=== PATIENT | female | born 1940 | race Caucasian/White ===

== ENCOUNTER 2024-12-25 15:45 | Inpatient (IN) | payer MEDICARE, OTHER, SELFPAY ==
[2024-12-25] VITALS (10 sets, daily range): BP systolic 114–164; BP diastolic 70–97; PULSE 80–108; RESP 15–28; TEMP 36.2–36.4; O2SAT 88–98; BMI 36.1
--- NOTE | ~2024-12-25 | XR_ITS ---
EXAMINATION: Pre-MRI screening CLINICAL INDICATION: Rule out metallic foreign body in abdomen. TECHNIQUE: One view chest, abdomen and pelvis. FINDINGS: Chest: The lungs are hyperexpanded and clear acute process. Heart size enlarged. Pulmonary vascularity is normal. No gross bony abnormality seen. No radiopaque metallic foreign body seen Abdomen 1 view reveal scattered stool and gas in the colon without distention. Mild prominence of small bowel loops in midabdomen There is no organomegaly. No radiopaque renal calculi seen. There is mild spondylosis seen in lumbar spine. No aggressive lytic or sclerotic process seen. XR/XR pre mri screening IMPRESSION: Hypoexpanded lungs without acute process Scattered stool colon and mild prominence small bowel loops midabdomen. No radiopaque metallic foreign body a prosthesis seen in the chest, abdomen or pelvis. Electronically signed by: Ankit Lopez MD 12/26/2024 02:43 PM EDT
--- NOTE | ~2024-12-25 | CT_ITS ---
EXAMINATION: CT HEAD WITHOUT CONTRAST (STROKE PROTOCOL) CLINICAL INFORMATION: Stroke protocol. COMPARISON: None available. TECHNIQUE: Contiguous axial imaging was performed from the skull base to vertex without intravenous administration of contrast. This CT examination was performed using dose optimization techniques as appropriate, variously including the following: *Automated exposure control *Adjustment of mA and/or kV according to patient size (this includes techniques or standardized protocols for targeted exams where dose is matched to indication/reason for exam; i.e. extremities or head) *Use of iterative reconstruction technique DLP: 624 mGy centimeter. FINDINGS: No acute intracranial hemorrhage, mass effect, midline shift, hydrocephalus or herniation. Kapadia-white matter differentiation is normal. There is a left temporoparietal occipital encephalomalacia and a right frontal encephalomalacia. Posterior cranial fossa contents demonstrated no acute intracranial hemorrhage or mass effect or midline shift. Calcified plaques in the cavernous supracavernous segments both ICA. Tympanic cavities and mastoid cells are aerated. Edentulous, maxilla. CT/CT head for STROKE IMPRESSION: No acute intracranial hemorrhage. Prior vascular insults left MCA and right MCA territory. Findings communicated to the emergency physician Dr. Mariposa Maier on December 25, 2024 at 4:00 PM This critical result was discussed with at hours on . It was ascertained that the content and urgency of the report was understood at the time of direct communication. Electronically signed by: Adam Tracy MD 12/25/2024 04:01 PM EDT
--- NOTE | ~2024-12-25 | CT_ITS ---
EXAMINATION: CT ANGIOGRAM HEAD AND NECK CLINICAL INFORMATION: Right-sided weakness, dysarthria. Right arm paralysis. COMPARISON: Noncontrast head CT performed earlier same day. TECHNIQUE: CTA Head and Neck performed via test bolus sequences and head and neck intravenous bolus administration 70 mL of Omnipaque 350. Helical imaging was performed in the axial plane from the aortic arch to the skull vertex. A [address] head was also obtained. The data was processed at the medical imaging technologist's workstation for generation of MIP sequences. Angled MIPs and volume rendered reformatted images were also generated at an offline 3D workstation. Stenoses are assessed in accordance with NASCET criteria unless otherwise indicated. This CT examination was performed using dose optimization techniques as appropriate, variously including the following: *Automated exposure control *Adjustment of mA and/or kV according to patient size (this includes techniques or standardized protocols for targeted exams where dose is matched to indication/reason for exam; i.e. extremities or head) *Use of iterative reconstruction technique FINDINGS: NECK CTA: -AORTIC ARCH: Normal in caliber. Mild to moderate atheromatous calcification. Three-vessel branching pattern. -GREAT VESSEL ORIGINS: Widely patent. No stenosis. -RIGHT COMMON CAROTID ARTERY: Normal in course and caliber to the level of the bifurcation. -CERVICAL RIGHT INTERNAL CAROTID ARTERY: Mild calcific atherosclerotic disease of the carotid bulb and proximal internal carotid artery without flow-limiting stenosis. -LEFT COMMON CAROTID ARTERY: Normal in course and caliber to the level of the bifurcation. -CERVICAL LEFT INTERNAL CAROTID ARTERY: Mild calcific atherosclerotic disease of the carotid bulb and proximal internal carotid artery without flow-limiting stenosis. -CERVICAL RIGHT VERTEBRAL ARTERY: Mildly dominant. Normal in course and caliber into the skull base. -CERVICAL LEFT VERTEBRAL ARTERY: Mild stenosis at the origin secondary to mixed plaque. Normal in course and caliber into the skull base. OTHER, SOFT TISSUES: -No lymphadenopathy or mass. No abnormal fluid collection or soft tissue swelling. -Mild global thyroid enlargement without discrete nodules seen. -Imaged superior mediastinal structures normal. -Imaged lung apices demonstrate mild mosaic attenuation, and mild thickening of the small airways diffusely. CTA OF THE BRAIN: -INTRACRANIAL INTERNAL CAROTID ARTERIES: Calcific atherosclerotic disease of the intracranial internal carotid arteries without occlusion or flow-limiting stenosis. -RIGHT ANTERIOR CEREBRAL ARTERY: Normal A1 segment.. Normal arborization of the distal segments. -LEFT ANTERIOR CEREBRAL ARTERY: The A1 segment is diminutive. Normal arborization of the distal segments. -ANTERIOR COMMUNICATING ARTERY: Normal. -RIGHT MIDDLE CEREBRAL ARTERY: Normal M1 segment of the MCA without focal stenosis or occlusion. Moderate focal stenosis of the superior division at the bifurcation. Normal arborization of the distal segments. -LEFT MIDDLE CEREBRAL ARTERY: Normal M1 segment of the MCA without focal stenosis or occlusion. Mild stenoses of the superior and inferior divisions at the bifurcation. Normal arborization of the distal segments. -RIGHT VERTEBRAL ARTERY V4: Normal in course and caliber. Mild atheromatous calcification. Normal PICA branch. -LEFT VERTEBRAL ARTERY V4: Normal in course and caliber. Mild atheromatous calcification. Left AICA/PICA. -BASILAR ARTERY: Normal without focal stenosis or occlusion. Normal appearance of the proximal superior cerebellar arteries. Normal basilar tip. -RIGHT POSTERIOR CEREBRAL ARTERY: Mild stenosis of the P1 P2 junction. Normal opacification of the distal TELLER VAULT segments. -LEFT POSTERIOR CEREBRAL ARTERY: The P1 segment is diminutive. origin of the TELLER VAULT with robust opacification of the posterior communicating artery. Mild to moderate stenosis of the P1 P2 junction. Normal opacification of the distal TELLER VAULT segments. -POSTERIOR COMMUNICATING ARTERIES: Normal opacification of the superior sagittal, straight, transverse, and sigmoid sinuses. No venous thrombosis. No space-occupying hemorrhage or definite evolving infarct. CT/CT angio head neck STROKE IMPRESSION: CTA NECK: 1. No flow-limiting stenosis, dissection, or occlusion of the major arterial cervical vasculature. Mild atheromatous plaque at the carotid bifurcations bilaterally. 2. Mild stenosis at the origin of the left vertebral artery. 3. Mosaic attenuation of the lung parenchyma, most likely on the basis of underlying air trapping. Differential includes constrictive (obliterative) bronchiolitis, hypersensitivity pneumonitis, as well as less commonly bronchial asthma, vasculitis, and chronic PE. Mild thickening of the small airways in the upper lungs consistent with chronic bronchitis. 4. Mild global enlargement of the thyroid without discrete nodule. CTA HEAD: 1. Moderate focal stenosis of the superior division right MCA origin from the bifurcation. 2. Mild stenoses of the superior and inferior division left MCA M2 segments. 3. Mild to moderate stenoses bilaterally at the TELLER VAULT P1/P2 segments. 4. Persistent origin of the left TELLER VAULT. 5. Old left parietal infarct. Old right frontal infarct. 6. No space-occupying hemorrhage, or definite acute territorial evolving infarction. Electronically signed by: Abdi Archuleta MD 12/25/2024 04:41 PM EDT RP
--- NOTE | 2024-12-25 15:50 | ECG_ITS ---
Test Reason : ? STROKE Blood Pressure : */* mmHG Vent. Rate : 96 BPM Atrial Rate : * BPM P-R Int : * ms QRS Dur : 86 ms QT Int : 312 ms P-R-T Axes : * 215 48 degrees QTcB Int : 394 ms Atrial fibrillation Right superior axis deviation Cannot rule out Anterior infarct , age undetermined Abnormal ECG No previous ECGs available Referred By: Mariposa Maier Electronically Signed By: SYDNI CAGE
[2024-12-25 16:03] LABS: Prothrombin Time Whole Bld POC 15.3 sec (11.1-13.5); ~PT, ~INR - Anti Coag Clinic 1.3 (0.9-1.1)
[2024-12-25 16:07] LABS: MANUAL DIFF FLAG NO
[2024-12-25 16:08] LABS: Basophils Percent Auto 0.2 % (0-2); Eosinophils Absolute Auto 0.2 X10*3/uL (0.0-0.4); Eosinophils Percent Auto 3.7 % (0-4); Hematocrit 45.6 % (37.0-47.0); Hemoglobin 14.7 g/dl (12.0-16.0); Imm Gran Abs Auto 0.03 X10*3/uL (0.00-0.03); Imm Gran Pct Auto 0.7 % (0.0-0.4); Lymphocytes Absolute Auto 1.7 X10*3/uL (1.2-4.9); Lymphocytes Percent Auto 38.8 % (20-40); Mean Corpuscular HGB Conc 32.2 g/dl (31.0-35.0); Mean Corpuscular Hemoglobin 28.7 pg (27.0-33.0); Mean Corpuscular Volume 88.9 fL (80.0-98.0); Mean Platelet Volume 10.2 fL (9.4-12.3); Monocytes Absolute Auto 0.5 X10*3/uL (0.1-1.2); Monocytes Percent Auto 10.7 % (2-11); Neutrophils Percent Auto 45.9 % (45-73); Platelet Count 167 X10*3/uL (160-400); Red Blood Count 5.13 X10*6/uL (4.20-5.50); Red Cell Distribution Width 13.5 % (11.0-16.0); White Blood Count 4.3 X10*3/uL (4.8-10.8)
[2024-12-25] MEDS: iohexoL 350 MG/ML 100 ML INFUS..BTL IV (16:10)
[2024-12-25 16:24] LABS: Anion Gap 11 (12-20); Blood Urea Nitrogen 18 mg/dL (9-16); Calcium 9.9 mg/dL (8.4-10.2); Carbon Dioxide 25 mmol/L (22-29); Chloride 107 mmol/L (96-108); Cholesterol 168 mg/dL (<200); Creatinine Clr Calc Pharmacy 31.5; Estimated Glomerular Filt Rate 34; Glucose Random 143 mg/dL (60-115); HDL Cholesterol 54 mg/dL (>40); LDL Cholesterol Calculated 92 mg/dL (<100); Potassium 4.3 mmol/L (3.3-5.1); Sodium 139 mmol/L (135-145); Triglycerides 110 mg/dL (<150)
[2024-12-25] MEDS: levETIRAcetam in NaCl (iso-os) 1,000 MG/100 ML PIGGYBACK 400 MG IV ×2 (16:31→17:21)
[2024-12-25] MEDS: LORazepam 2 MG/ML VIAL 1 MG IVPUSH ×3 (16:32→17:15)
--- NOTE | 2024-12-25 16:38 | ED.NEUROSD ---
HPI - Neuro Symptoms/Deficit General Chief Complaint: Stroke Stated Complaint: STROKE ALERT,SNF, LKWT 12PM, extreme confusion/AMS Time Seen by Provider: 12/25/24 15:49 History of Present Illness HPI Narrative: Patient is a 84-year-old female with a history of hypertension, aphasia, hypothyroid, atrial fibrillation currently on Eliquis patient presented today at around noon time developed a sudden onset of difficulty with speech. Baseline awake alert but had had some deficits secondary to a previous stroke. Bed today had the difficulty with speech had significant right-sided weakness which is new. Patient's sugar was noted by EMS to be normal she was sent to [facility] for emergent evaluation. Related Data Allergies Allergy/AdvReac Type Severity Reaction Status Date / Time No Known Allergies Allergy Verified 12/25/24 17:08 Review of Systems Review of Systems: Positive right-sided weakness PMFSH Past Medical History Attestation statement: The following information was validated with the patient. Physical Exam Vital Signs: Vital Signs: Last Vital Signs Temp 97.6 F 12/25/24 16:34 Pulse 95 12/25/24 16:34 Resp 18 12/25/24 16:34 BP 142/80 H 12/25/24 16:34 Pulse Ox 94 12/25/24 16:34 O2 Del Method Room Air 12/25/24 16:34 BMI result Body Mass Index 36.1 Appearance: Alert. No acute distress. Eyes: Pupils equal, round and reactive to light. ENT: Pharynx normal. Neck: Normal inspection. Neck supple. No lymph nodes noted. No crepitus CVS: Normal heart rate and rhythm. Pulses normal. Normal S1 and S2 Respiratory: No respiratory distress. Breath sounds normal. No Wheezing. No rales Abdomen: Soft and nontender. No rigidity. No distention. good BS x4 Skin: Skin warm and dry. Normal skin color. Normal skin turgor. Extremities: No lower extremity edema. Neurovascular intact to all extremities. No Lacerations. No Rash Neuro: positive right-sided weakness positive slurred speech positive drift on the right side. Can not lift up right arm against gravity. Slight weakness in the right leg. Medications Administered Discontinued Medications Generic Name Dose Route Start Last Admin Trade Name Freq PRN Reason Stop Dose Admin Levetiracetam 1,000 mg in 100 mls @ 400 mls/hr 12/25/24 16:24 03/12/25 16:50 Keppra IV 12/25/24 16:38 Infused ONCE ONE Infusion Iohexol 100 ml 12/25/24 16:10 12/25/24 16:10 Iohexol 350 Mg/Ml 100 Ml Infus..Btl IV 12/25/24 16:11 70 ml ONCE ONE Administration Lorazepam 1 mg 12/25/24 16:24 12/25/24 16:32 Lorazepam 2 Mg/Ml Vial IVPUSH 12/25/24 16:25 1 mg ONCE ONE Administration Lorazepam 1 mg 12/25/24 16:43 12/25/24 16:50 Lorazepam 2 Mg/Ml Vial IVPUSH 12/25/24 16:44 1 mg ONCE ONE Administration Medical Decision Making Medical Decision Making [facility] Narrative: Patient's sugar was normal. No evidence for hypoglycemia. A stroke alert was called. Patient was taken to the CT scanner. CT head was grossly negative for any acute evidence of bleeding. CTA showed no large vessel occlusion. While in the ED patient had a seizure. Loaded with Keppra. Given Ativan. Seizure has stopped. Patient's CTA showed no corresponding large vessel occlusion. Finding was discussed with Radiology. No acute intervention at this time. patient will require admission for further evaluation. Not a candidate for tPA as patient is on Eliquis. Differential Diagnosis Differential Diagnoses: The differential diagnosis associated with the presentation includes CVA, seizure Admission/Observation Consideration of admission/observation: Escalation of care including admission/observation considered Consult Healthcare Provider Management of the patient was discussed with: Hospitalist and Apple Packing Header ( radiology) Lab Data [facility] Lab Attestation statement: I reviewed the patient's lab results. 12/25/24 15:57 12/25/24 15:57 Labs: Lab Results 12/25/24 12/25/24 12/25/24 Range/Units 15:55 15:57 16:30 WBC 4.3 L (4.8-10.8) X10*3/uL RBC 5.13 (4.20-5.50) X10*6/uL Hgb 14.7 (12.0-16.0) g/dl Hct 45.6 (37.0-47.0) % MCV 88.9 (80.0-98.0) fL MCH 28.7 (27.0-33.0) pg MCHC 32.2 (31.0-35.0) g/dl RDW 13.5 (11.0-16.0) % Plt Count 167 (160-400) X10*3/uL MPV 10.2 (9.4-12.3) fL Immature Gran % (Auto) 0.7 H (0.0-0.4) % Neut % (Auto) 45.9 (45-73) % Lymph % (Auto) 38.8 (20-40) % [place] % (Auto) 10.7 (2-11) % Eos % (Auto) 3.7 (0-4) % Baso % (Auto) 0.2 (0-2) % Lymph # (Auto) 1.7 (1.2-4.9) X10*3/uL [place] # (Auto) 0.5 (0.1-1.2) X10*3/uL Eos # (Auto) 0.2 (0.0-0.4) X10*3/uL Baso # (Auto) 0.0 (0.0-0.2) X10*3/uL Abs Immat Gran (auto) 0.03 (0.00-0.03) X10*3/uL Absolute Neuts (auto) 2.0 (2.0-8.3) x10*3/uL Absolute Nucleated RBC 0.000 (0.0-0.012) X10*3/uL Nucleated RBC % (auto) 0.0 (0.0-0.2) /100WBC Hold Purple Top SEE NOTE PT 13.9 H (10.9-12.4) SEC Whole Blood PT 15.3 H (11.1-13.5) sec INR 1.2 H (0.9-1.1) Whole Blood INR 1.3 H (0.9-1.1) APTT 32.3 (26.0-36.8) SEC Sodium 139 (135-145) mmol/L Potassium 4.3 (3.3-5.1) mmol/L Chloride 107 (96-108) mmol/L Carbon Dioxide 25 (22-29) mmol/L Anion Gap 11 L (12-20) BUN 18 H (9-16) mg/dL Creatinine 1.46 H (0.5-1.4) mg/dL Estim Creat Clear Calc 31.5 Estimated GFR 34 Random Glucose 143 H (60-115) mg/dL Calcium 9.9 (8.4-10.2) mg/dL Troponin I High Sens 5.0 (<3.5-17.0) ng/L Triglycerides 110 (<150) mg/dL Cholesterol 168 (<200) mg/dL LDL Cholesterol, Calc 92 (<100) mg/dL HDL Cholesterol 54 (>40) mg/dL Independent Interpretation I performed an independent interpretation of an: CT Scan Radiology Impression Discussion of test interpretation with radiology: I discussed test interpretation with the radiologist and I have reviewed the radiologist's reading. External Record Review skilled nursing record reviewed Chronic Conditions Patient?s care impacted by: Hypertension history of atrial fibrillation history of strokes NIH Stroke Scale Internal: Initial- Upon Arrival Level of Consciousness: Alert Level of Consciousness Questions: Answers both questions correctly Level of Consciousness Commands: Performs one task correctly Best Gaze: Partial gaze palsy Visual: Partial hemianopia Facial Palsy: Partial paralysis Motor Arm (Right): Drift Motor Arm (Left): No drift Motor Leg (Right): Drift Motor Leg (Left): No drift Limb Ataxia: Present in one limb Sensory: Normal Best Language: Mild to moderate aphasia Dysarthia: Mild to moderate dysarthria Extinction and Inattention: No abnormality Score: 10 Critical Care Time Critical Care Time Critical Care Time: Yes Total Critical Care Time: 40 Attestation: I have personally provided 40 minutes of critical care time exclusive of time spent on separately billable procedures. Time includes review of lab data, radiology results, discussion with consultants, and monitoring for potential decompensation. Interventions were performed as documented above Discharge Plan Discharge Clinical Impression: Cerebrovascular accident Patient Disposition: Admitted As Inpatient Print Language: Unknown
--- NOTE | 2024-12-25 16:42 | MHC.STROKE ---
Notified of Stroke Alert in ED Upon arrival to ED, CT scan completed and patient in room 22 Pt with garbled speech. Responds to name. Able to state some words clearly. Does not follow all commands - would not squeeze my hand bilaterally. Drift noted right side. Right leg weakness when attempting to lift leg. Pt also noted to have twitching right upper extremity and right leg. Pt unable to stop twitching Dr. Maier and Dr. Oquendo to bedside. Questioning focal seizure. Plan is to medicate with Ativan and Keppra. Will continue to assist as needed. Will fail swallow secondary to coughing and inability to follow all commands. Pt is also receiving speech services at [facility]. Educated on plan here in the ED Pt will need reinforcement in regards to medical hx, plan, medications.
[2024-12-25 16:43] LABS: INTERNATIONAL NORM RATIO 1.2 (0.9-1.1); Prothrombin Time 13.9 SEC (10.9-12.4)
[2024-12-25 16:46] LABS: Partial Thromboplastin Time 32.3 SEC (26.0-36.8)
[2024-12-25 16:47] LABS: Stroke Lab Use COMPLETE
--- NOTE | 2024-12-25 16:51 | PC.NURSE ---
Pt presents to ED via EMS from [facility] as STROKE ALERT by EMS. LKWT 1200p per EMS. Story confusing, will call facility. Per EMS pt is alert and oriented and ambulatory at baseline. Today presenting with confusion, dysarthria and right sided weakness/ right sided drift. Pt brought immediately to CT scan and orders followed.
--- NOTE | 2024-12-25 16:53 | PC.NURSE ---
Provider called to bedside due to pt having what appears to be focal seizure/ seizure like activity on right side of body, remains talking (not making sense), gaze favoring right side. Pt unable to answer questions. Afib on monitor, VSS. Seizure pads in place. Speech eval failed at this time, pt coughing frequently.
--- NOTE | 2024-12-25 17:08 | PC.NURSE ---
This RN attempted to call [facility] with no answer, will attempt again later
--- NOTE | 2024-12-25 17:10 | PC.NURSE ---
Pt coninues to have seizure like activity on right side, provider aware. Medicated per DEC. Pt placed on 2L O2 NC due to desat to 88%, good effect
--- NOTE | 2024-12-25 17:26 | PC.NURSE ---
Seizure like activity stopped at this time, pt sleeping. VSS.
--- NOTE | 2024-12-25 17:33 | PM.IMHP ---
History of Present Illness Date of Service: 12/25/24 Chief Complaint: right sided weakness 84F PMH multiple CVAs, multiple CVAs, CKD 3, paroxysmal AFib, hypertension presented from custodial with right-sided weakness. History is taken from ER as patient is postictal. Per report patient was last known well at 12:00 on day of presentation at baseline is alert and oriented and ambulatory. Patient was found to be weak with expressive aphasia and right hemiparesis, stroke alert was called. CTA of the head did not show any acute infarct. In ED patient started to have seizure and was given Ativan and Keppra. Review of Systems Review of Systems: Yes all other systems are reviewed and are negative [facility] Medical History (Updated 12/25/24 @ 17:36 by Jag Ward MD) Cerebrovascular accident Social History Advance Directives: No Advance Directives Information Provided: Yes Meds Allergies Allergy/AdvReac Type Severity Reaction Status Date / Time No Known Allergies Allergy Verified 12/25/24 17:08 Active Medications: Current Medications Acetaminophen (Acetaminophen 325 Mg Tablet) 650 mg PO Q6H PRN PRN Reason: Pain, Mild 1-3,fever,headache Calcium Carbonate (Calcium Carbonate 750 Mg Tab.Chew) 750 mg PO Q4H PRN PRN Reason: Heartburn Enoxaparin Sodium (Enoxaparin Sodium 80 Mg/0.8 Ml Syringe) 90 mg SUBCUT Q12H KEMAR Levetiracetam 750 mg/ Sodium (Chloride) 107.5 mls @ 430 mls/hr IV Q12H KEMAR Magnesium Hydroxide (Milk Of Magnesia 30 Ml Oral.Susp) 30 ml PO DAILY PRN PRN Reason: Constipation Melatonin (Melatonin 3 Mg Tablet) 6 mg PO BEDTIME PRN PRN Reason: Insomnia Home Medications ?Medication ?Instructions ?Recorded ?Confirmed ?Last Taken ?Type amlodipine 10 mg tablet 30 mg PO DAILY 12/25/24 Unknown History apixaban 2.5 mg tablet (Eliquis) 2.5 mg PO BID 12/25/24 Unknown History metoprolol tartrate 25 mg tablet 25 mg PO BID 12/25/24 Unknown History Physical Exam Vital Signs and Narrative: Vital Signs: Last Vital Signs Temp 97.6 F 12/25/24 16:34 Pulse 80 12/25/24 17:21 Resp 18 12/25/24 17:21 BP 114/70 12/25/24 17:21 Pulse Ox 94 12/25/24 17:21 O2 Del Method Nasal Cannula 12/25/24 17:21 O2 Flow Rate 2 12/25/24 17:21 BMI result Body Mass Index 36.1 Obtunded/postictal, lungs clear, heart rate normal Results Labs 12/25/24 15:57 12/25/24 15:57 Labs: Laboratory Results - last 24 hr 12/25/24 12/25/24 12/25/24 15:55 15:57 16:30 MCV 88.9 MCH 28.7 MCHC 32.2 RDW 13.5 Plt Count 167 MPV 10.2 Immature Gran % (Auto) 0.7 H Neut % (Auto) 45.9 Lymph % (Auto) 38.8 [place] % (Auto) 10.7 Eos % (Auto) 3.7 Baso % (Auto) 0.2 Lymph # (Auto) 1.7 [place] # (Auto) 0.5 Eos # (Auto) 0.2 Baso # (Auto) 0.0 Abs Immat Gran (auto) 0.03 Absolute Neuts (auto) 2.0 Absolute Nucleated RBC 0.000 Nucleated RBC % (auto) 0.0 Hold Purple Top SEE NOTE PT 13.9 H Whole Blood PT 15.3 H INR 1.2 H Whole Blood INR 1.3 H APTT 32.3 Anion Gap 11 L Estim Creat Clear Calc 31.5 Estimated GFR 34 Random Glucose 143 H Calcium 9.9 Triglycerides 110 Cholesterol 168 LDL Cholesterol, Calc 92 HDL Cholesterol 54 Imaging Radiologist's Impressions: Impressions Head CT 12/25/24 15:52 IMPRESSION: No acute intracranial hemorrhage. Prior vascular insults left MCA and right MCA territory. Findings communicated to the emergency physician Dr. Mariposa Maier on December 25, 2024 at 4:00 PM This critical result was discussed with at hours on . It was ascertained that the content and urgency of the report was understood at the time of direct communication. Electronically signed by: Adam Tracy MD 12/25/2024 04:01 PM EDT Head/Neck CTA 12/25/24 16:01 IMPRESSION: CTA NECK: 1. No flow-limiting stenosis, dissection, or occlusion of the major arterial cervical vasculature. Mild atheromatous plaque at the carotid bifurcations bilaterally. 2. Mild stenosis at the origin of the left vertebral artery. 3. Mosaic attenuation of the lung parenchyma, most likely on the basis of underlying air trapping. Differential includes constrictive (obliterative) bronchiolitis, hypersensitivity pneumonitis, as well as less commonly bronchial asthma, vasculitis, and chronic PE. Mild thickening of the small airways in the upper lungs consistent with chronic bronchitis. 4. Mild global enlargement of the thyroid without discrete nodule. CTA HEAD: 1. Moderate focal stenosis of the superior division right MCA origin from the bifurcation. 2. Mild stenoses of the superior and inferior division left MCA M2 segments. 3. Mild to moderate stenoses bilaterally at the [employer] P1/P2 segments. 4. Persistent origin of the left [employer]. 5. Old left parietal infarct. Old right frontal infarct. 6. No space-occupying hemorrhage, or definite acute territorial evolving infarction. Electronically signed by: Abdi Archuleta MD 12/25/2024 04:41 PM EDT RP Assessment and Plan (1) Cerebrovascular accident: Status: Acute Plan 84F PMH multiple CVAs, multiple CVAs, CKD 3, paroxysmal AFib, hypertension presented from custodial with right-sided weakness Acute CVA Admit to tele, check MRI, neuro, continue anticoagulation with therapeutic Lovenox as unable to take p.o. at this time Speech, PT, OT, check echo Seizure Keppra, neuro eval CKD 3 Stable Paroxysmal AFib Normally on Eliquis and metoprolol Continue Lovenox for now DNR/DNI DVT prophylaxis on Lovenox Patient with suspected acute CVA and seizure expected require at least 2 midnights inpatient Quality Stroke Does the patient have a stroke diagnosis?: Yes Reason for No Anti-thrombotic by Day Two: Drug treatment not indicated VTE Prior VTE?: No VTE Risk Level:: Medical - moderate - high VTE Device Contraindication: Treatment Not Indicated VTE Drug Contraindication: N/A - Med Ordered
--- NOTE | 2024-12-25 17:50 | PC.NURSE ---
MRI screening form filled out by pts son to best of his ability.
--- NOTE | 2024-12-25 17:56 | PC.NURSE ---
EVELYN IS PTS SON- NUMBER [phone]
--- NOTE | 2024-12-25 18:31 | PHA.MEDREC ---
Pharmacy Consult ? Medication Reconciliation Pharmacy has completed the medication reconciliation.
--- OUTSIDE RECORDS SUMMARY | 2024-12-25 18:47 | XMS_ITS ---
Author Organization THOR MARTIN MD Address [address] [address] Care Team Providers Care Supervisor Put[employer] Caluking Name Role Phone THOR MARTIN Primary Care Provider [phone] REASON FOR VISIT wellness Encounters Encounter Location Date Provider Diagnosis [facility]OR MARTIN MD [address] [address] 08/01/2024 [facility] PLAN OF TREATMENT No Information Progress Notes * Ana Paula KERRDOB:1940 ([age] yo F)Acc No.[id number]:08/01/2024 Progress Notes Patient:??Ana Paula KERR Provider:??Thor Martin MD :1940?Age:84 Y?Sex:Fe male Date:08/01/2024 Address:[address] [place] [address], [address] [place], [place] [id number] Subjective: * Chief Complaints: * ?1. Wellness. * Medical History:?? Objective: Assessment: Plan: * Treatment: * Billing Information: * Visit Code:?? * Procedure Codes:?? * Sign off status: Pending * Provider:??Thor Martin MD Date:??2023
--- OUTSIDE RECORDS SUMMARY | 2024-12-25 18:47 | XMS_ITS | Encounter Summary ---
Author Organization [facility] Address [id number] [place] [id number] Care Team Providers Care Dinkey Press Operator Name Role Phone Manuela Brink MD Primary Care Provider [phone] Encounter Details Date Type Department Care Team (Late st Contact Info) Description 08/23/2024 Lab Requisition [facility] - Main Lab [address] [place] [address] Manuela Brink MD [address] [place] [id number] Essential (primary) hypertension Social History Tobacco Use Types Packs/Day Years Used Date Smoking Tobacco: Never Assessed Comments Unknown Sex and Gender Information Value Date Recorded Sex Assigned at Not on file Legal Sex Female 1:32 PM EDT Gender Identity Not on file Sexual Orientation Not on file documented as of this encounter Plan of Treatment Not on file documented as of this encounter Procedures Procedure Name Priority Date/Time Associated Diagnosis Comments COMPLETE BLOOD COUNT Routine 08/26/2024 5:28 AM EST Essential (primary) hypertension BASIC METABOLIC PANEL Routine 08/26/2024 5:28 AM EST Essential (primary) hypertension documented in this encounter Results * (ABNORMAL) Basic metabolic panel (08/26/2024 5:28 AM EST) Sodium 142 133 - 145 mmol/L LAB CHEMISTRY METHOD 08/26/2024 10:57 AM EST [facility] Potassium 4.2 3.5 - 5.5 mmol/L LAB CHEMISTRY METHOD 08/26/2024 10:57 AM EST [facility] Chloride 108 96 - 110 mmol/L LAB CHEMISTRY METHOD 08/26/2024 10:57 AM [facility] CO2 28 21 - 32 mmol/L LAB CHEMISTRY METHOD 08/26/2024 10:57 AM [facility] Anion Gap 6 3 - 11 LAB CHEMISTRY METHOD 08/26/2024 10:57 AM [facility] Glucose 108(H) 70 - 100 mg/dL LAB CHEMISTRY METHOD 08/26/2024 10:57 AM [facility] BUN 20 5 - 25 mg/dL LAB CHEMISTRY METHOD 08/26/2024 10:57 AM [facility] Creatinine 1.61(H) 0.50 - 1.10 mg/dL LAB CHEMISTRY METHOD 08/26/2024 10:57 AM [facility] eGFR 31(L) >=60 mL/min/1. 73m2 LAB CHEMISTRY METHOD 08/26/2024 10:57 AM [facility] Comment:Calculation based on the??Chronic Kidney Disease Epidemiology Collaboration (CKD-EPI) equation refit??without adjustment for race. BUN/Creatinine Ratio 12.4 LAB CHEMISTRY METHOD 08/26/2024 10:57 AM [facility] Calcium 10.0 8.5 - 10.5 mg/dL LAB CHEMISTRY METHOD 08/26/2024 10:57 AM [facility] Blood Venous blood specimen / Unknown Venipuncture / Unknown 08/26/2024 5:28 AM EST 08/26/2024 9:01 AM EST us Manuela Brink MD LAB BLOOD ORDERABLES Final Res ult [facility] [address] [place] [address], * (ABNORMAL) Complete blood count (08/26/2024 5:28 AM EST) WBC 5.3 4.8 - 10.8 [facility] LAB HEMETOLOGY METHOD 08/26/2024 10:46 AM [facility] RBC 4.40 3.80 - 4.80 M/mcL LAB HEMETOLOGY METHOD 08/26/2024 10:46 AM [facility] Hemoglobin 12.5 11.5 - 16.0 g/dL LAB HEMETOLOGY METHOD 08/26/2024 10:46 AM [facility] Hematocrit 40.4 35.0 - 47.0 % LAB HEMETOLOGY METHOD 08/26/2024 10:46 AM [facility] MCV 92.2 79.0 - 98.0 FL LAB HEMETOLOGY METHOD 08/26/2024 10:46 AM [facility] MCH 28.5 27.0 - 32.0 pcg LAB HEMETOLOGY METHOD 08/26/2024 10:46 AM [facility] MCHC 30.9(L) 32.0 - 37.0 g/dL LAB HEMETOLOGY METHOD 08/26/2024 10:46 AM [facility] RDW 13.9 11.0 - 15.0 % LAB HEMETOLOGY METHOD 08/26/2024 10:46 AM [facility] Platelets 199 130 - 400 K/mcL LAB HEMETOLOGY METHOD 08/26/2024 10:46 AM [facility] MPV 11.1(H) 7.0 - 11.0 FL LAB HEMETOLOGY METHOD 08/26/2024 10:46 AM [facility] NRBC 0.0 <1.0 % LAB HEMETOLOGY METHOD 08/26/2024 10:46 AM [facility] NRBC Absolute 0.00 <0.10 K/mcL LAB HEMETOLOGY METHOD 08/26/2024 10:46 AM [facility] Blood Venous blood specimen / Unknown Venipuncture / Unknown 08/26/2024 5:28 AM EST 08/26/2024 9:01 AM EST Manuela Brink MD LAB BLOOD ORDERABLES Final Res ult [facility] [address] [place] [address], documented in this encounter Visit Diagnoses Diagnosis Essential (primary) hypertension Unspecified essential hypertension documented in this encounter Additional Health Concerns Infection Onset Date Last Indicated Resolved Time Respiratory Rule-Out 12/19/2024 12/19/2024 025 1:52 PM EST Influenza 12/19/2024 12/19/2024 documented as of this encounter Care Teams Dinkey Press Operator Relationship Specialty Start Date End Date Manuela Brnik MD [address] [place] [id number] PCP - General Internal Medicine 09/19/24 documented as of this encounter
--- OUTSIDE RECORDS SUMMARY | 2024-12-25 18:47 | XMS_ITS | Encounter Summary ---
Author Organization [facility] Address [address] [place] [address] Care Team Providers Care Docent Coordinator Name Role Phone Manuela Brink MD Primary Care Provider [phone] Encounter Details Date Type Department Care Team (Late st Contact Info) Description 12/20/[address] [facility] - Main Lab [address] [facility] [place] [address] Richard Huddleston MD [address] [place] [address] Acute cough; Nasal congestion; Weakness Social History Tobacco Use Types Packs/Day Years [...] Procedure Name Priority Date/Time Associated Diagnosis Comments [id number], RSV, FLU A AND B QUALITATIVE RT-PCR, LOCAL REFERENCE LAB Routine 12/19/2024 12:00 AM EST Acute cough Nasal congestion Weakness documented in this encounter Results * (ABNORMAL) [id number], RSV, Influenza A and B qualitative RT-PCR (12/19/2024 12:00 AM EST) SARS COV-2 Not Detected Not Detected LAB MOLECULAR DIAGNOSTICS METHOD 12/20/2024 1:52 PM EST [facility] Comment: Disclaimer: The manner in which this information is used to guide patient care is the responsibility of the healthcare provider. Testing was performed using the 8 [employer] m SARS-CoV-2 test. This test has been authorized by FDA under an Emergency Use Authorization (EUA). This test is only authorized for the duration of time the declaration that circumstances exist justifying the authorization of the emergency use of in vitro diagnostic tests for detection of SARS-CoV-2 virus and/or diagnosis of COVID-19 infection under section 564(b)(1) of the Act, 21 U.S.C. 360bbb- 3(b)(1), unless the authorization is terminated or revoked sooner. Fact sheet for Healthcare Providers can be found at: https://www.fda.gov/media/279458/download Fact sheet for Patients can be found at: https://www.fda.gov/media/068016/download Influenza A PCR Detected(A ) Not Detected LAB MOLECULAR DIAGNOSTICS METHOD 12/20/2024 1:52 PM EST [facility] Comment:This patient is posi tive for influenza A. If the patient is admitted, please order the Respiratory Virus Panel PCR (Epic ID: [id number]) so our lab can subtype the influenza A, per CDC recommendations. Influenza B PCR Not Detected Not Detected LAB MOLECULAR DIAGNOSTICS METHOD 12/20/2024 1:52 PM EST [facility] RSV PCR Not Detected Not Detected LAB MOLECULAR DIAGNOSTICS METHOD 12/20/2024 1:52 PM [facility] Swab Nasopharyngeal structure / Unknown 12/19/2024 12/20/2024 11:03 AM EST us Richard Huddleston MD LAB MICROBIOLOGY - GENERAL ORDER BECKY Final Result [facility] [address] [place] [address], documented in this encounter Visit Diagnoses Diagnosis Acute cough Nasal congestion Other diseases of nasal cavity and sinuses Weakness Other malaise and fatigue documented in this encounter Additional Health Concerns Infection Onset Date Last Indicated Resolved Time Respiratory Rule-Out 12/19/2024 12/19/202412/20/2 025 1:52 PM EST Influenza 12/19/2024 12/19/2024 documented as of this encounter Care Teams Docent Coordinator Relationship Specialty Start Date End Date Manuela Brink MD [address] [place] [id number] PCP - General Internal Medicine 09/19/24 documented as of this encounter
--- OUTSIDE RECORDS SUMMARY | 2024-12-25 18:47 | XMS_ITS ---
Author Organization THOR MARTIN MD Address [address] [address] Care Team Providers Care Medical Records Director Name Role Phone VERONICATHOR Primary Care Provider REASON FOR VISIT sign papers MEDICATIONS Medication SIG (Take, Route, Frequency, Duration) Notes Start Date End Date Status Lidoderm 5 % 1 patch remove after 12 hours Externally Once a day Active Visine Dry Eye Relief 1 % 1 drop into af fected eye as needed Ophthalmic 24 time(s) a day Active Eliquis 2.5 MG as directed Orally t wice a day Active amLODIPine Besylate 10 MG 1 tablet Orall y Once a day Active Multivitamin - 1 tablet Orally Once a day Active Sennosides 8.6 MG 2 tablets at bedtime as needed Orally Once a day Active Tylenol 8 Hour Arthritis Pain 650 MG 2 tablets as needed Orally every 8 hrs Active MiraLax 17 GM/SCOOP 1 scoop mixed with 8 ounces of fluid Orally Once a day Active Erythromycin 2 % 1 application Rn Telehealth ally Twice a day for 21 days 06/18/2024 Active Metoprolol Tartrate 50 MG 1 tablet with food Orally Twice a day Active Eliquis 2.5 MG as directed Orally t wice day for 90 days 06/18/2024 Active Encounters Encounter Location Date Provider Diagnosis THOR MARTIN MD [address] [address] 07/03/2024 THOR MARTIN Type 2 diabetes jordana itus with diabetic chronic kidney disease E11.22 ; 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 Patient will get home care physical therapy. Patient will see ophthalmology regarding the entropion. Which may be related to her stroke. Patient Eliquis was decreased to dose based on her age. PLAN OF TREATMENT Treatment Notes Assessment Notes Other Patient is accompani ed by her daughter. Patient will get home care physical therapy. Patient will see ophthalmology regarding the entropion. Which may be related to her stroke. Patient Eliquis was decreased to dose based on her age. Next Appt Details Follow Up: 2 Months, Reason: Progress Notes * MARKSandy MarchDOB:1940 ([age] yo F)Acc No.[id number]:07/03/2024 Progress Notes Patient:??Ana Paula KERR Provider:??Thor Martin MD :1940?Age:84 Y?Sex:Fe male Date:07/03/2024 Address:[address] [place], [place] [id number] Subjective: * Chief Complaints: * ?1. Sign papers. * HPI: ?Constitutional:? vna certification ?date 06/19/2024 to 08/17/2024 ?Name of the agency;[facility] [employer] ?This patient has atrial fibrillation hypertension status post stroke. I have reviewed the medication and verified the diagnosis. Visiting nurses visits are not necessary patient is homebound. * Medical History:?? * Medications:??Taking Eliquis 2.5 MG Tablet as directed Orally twice day , Taking Erythromycin 2 % Gel 1 application Externally Twice a day , Taking Metoprolol Tartrate 50 MG Tablet 1 tablet with food Orally Twice a day , Taking Tylenol 8 Hour Arthritis Pain 650 MG Tablet Extended Release 2 tablets as needed Orally every 8 hrs , Taking MiraLax 17 GM/SCOOP Powder 1 scoop mixed with 8 ounces of fluid Orally Once a day , Taking Sennosides 8.6 MG Tablet 2 tablets at bedtime as needed Orally Once a day , Taking Lidoderm 5 % Patch 1 patch remove after 12 hours Externally Once a day , Taking amLODIPine Besylate 10 MG Tablet 1 tablet Orally Once a day , Taking Multivitamin - Tablet 1 tablet Orally Once a day , Taking Visine Dry Eye Relief 1 % Solution 1 drop into affected eye as needed Ophthalmic 24 time(s) a day , Taking Eliquis 2.5 MG Tablet as directed Orally twice a day Objective: Assessment: * Assessment: 1.??Type 2 diabetes mellitus with diabetic chronic kidney disease - E11.22 (Primary)??2.??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 Plan: * Treatment: * Procedure Codes:??G0180 c ertification [facility] patient * Follow Up:??2 Months * Billing Information: * Visit Code:?? * Procedure Codes:?? G0180 certification [facility] patient. * Sign off status: Pending * Provider:??Thor Martin MD Date:??2023 History and Physical Notes * HPI (History of Present Illness) Category Sub-Category Detail Notes Category Not es Constitutional a certification date 06/19/2024 to 08/17/2024 Name of the agency;[facility] This patient has atrial fibrillation hypertension status post stroke. I have reviewed the medication and verified the diagnosis. Visiting nurses visits are not necessary patient is homebound.
--- OUTSIDE RECORDS SUMMARY | 2024-12-25 18:47 | XMS_ITS | Patient Health Record ---
Author Organization LI MARTIN MD Address [address] [facility] [address] [place] [address] Care Team Providers Care Admissions Consultant Name Role Phone LI MARTIN Primary Care Provider [phone] ALLERGIES No Known Allergies REASON FOR REFERRAL Reason ectropian Diagnosis 1 Unspecified entropio n of left lower eyelid (H02.005) Referral Organization LI MARTIN MD Referring Provider First Name LI Referring Provider Last Name VERONICA Referring Provider Speciality Internal M edicine Referred Organization [facility] er Referred Address [address],[place],[address], Referred Provider Specialty Ophthalmolog y Referral Priority Routine MEDICATIONS Medication SIG (Take, Route, Frequency, Duration) Notes Start Date End Date Status Sennosides 8.6 MG 2 tablets at bedtime as needed Orally Once a day Active Lidoderm 5 % 1 patch remove after 12 hours Externally Once a day Active Tylenol 8 Hour Arthritis Pain 650 MG 2 tablets as needed Orally every 8 hrs Active MiraLax 17 GM/SCOOP 1 scoop mixed with 8 ounces of fluid Orally Once a day Active Erythromycin 2 % 1 application [employer] Surface [employer] ally Twice a day for 21 days 06/18/2024 Active Metoprolol Tartrate 50 MG 1 tablet with food Orally Twice a day Active amLODIPine Besylate 10 MG 1 tablet Orall y Once a day for 90 days Active Eliquis 2.5 MG as directed Orally t wice day for 90 days 06/18/2024 Active Visine Dry Eye Relief 1 % 1 drop into af fected eye as needed Ophthalmic 24 time(s) a day Active Eliquis 2.5 MG as directed Orally t wice a day Active Multivitamin - 1 tablet Orally Once a day Active PROBLEMS Problem Type ICD Code Onset Dates Problem Status W/U Status Risk SNOMED Code Notes Problem Type 2 diabetes mellitus with diabetic chronic kidney disease (E11.22) Active confirmed Diabetic renal disease (628848488) Problem 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) Active confirmed Entropion (10873433) Problem 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) Active confirmed Cerebral infarction due to carotid artery occlusion (698227751205321 ) Problem Longstanding persistent atrial fibrillation (I48.11) Active confirmed Longstanding persistent atrial fibrillation (916292855) Problem Body mass index [BMI] 35.0-35.9, adult (Z68.35) Active confirmed Obese class I I (936543468642748 ) Problem Hypertension, unspecified type (I10) Active confirmed Essential hypertension (32837925) Problem Anticoagulated by anticoagulation treatment (Z79.01) Active confirmed Long-term current use of anticoagulant (941791499) Problem Chronic renal failure, stage 3 (moderate), unspecified whether stage 3a or 3b CKD (N18.30) Active confirmed Chronic k idney disease stage 3 (disorder) (009992507) Problem Low back pain, unspecified (M54.50) Active confirmed Low back pain (744483664) VITAL SIGNS Heart Rate 74 /min 06/18/2024 DC from facilit y 06/16/24. Left lower lid droopying, watering, no hurt, no itch, no light sensitive. Legs are swelling, and did have the compression stocking on but took them off. Pt states that the Neuro told her that she had bumped her head as well as a stroke. PT daughter thinks she had the stroke and then fell and hit head, on left side. Temperature 98.3 degrees Fahrenheit 06/18/2024 DC f [facility] facility 06/16/24. Left lower lid droopying, watering, no hurt, no itch, no light sensitive. Legs are swelling, and did have the compression stocking on but took them off. Pt states that the Neuro told her that she had bumped her head as well as a stroke. PT daughter thinks she had the stroke and then fell and hit head, on left side. Oximetry 97 % 06/18/2024 DC from facilit y 06/16/24. Left lower lid droopying, watering, no hurt, no itch, no light sensitive. Legs are swelling, and did have the compression stocking on but took them off. Pt states that the Neuro told her that she had bumped her head as well as a stroke. PT daughter thinks she had the stroke and then fell and hit head, on left side. Blood pressure diastolic 90 mm Hg 06/18/2024 DC from facility 06/16/24. Left lower lid droopying, watering, no hurt, no itch, no light sensitive. Legs are swelling, and did have the compression stocking on but took them off. Pt states that the Neuro told her that she had bumped her head as well as a stroke. PT daughter thinks she had the stroke and then fell and hit head, on left side. Height 66 in 06/18/2024 DC from facilit y 06/16/24. Left lower lid droopying, watering, no hurt, no itch, no light sensitive. Legs are swelling, and did have the compression stocking on but took them off. Pt states that the Neuro told her that she had bumped her head as well as a stroke. PT daughter thinks she had the stroke and then fell and hit head, on left side. Blood pressure systolic 146 mm Hg 06/18/2024 DC f rom facility 06/16/24. Left lower lid droopying, watering, no hurt, no itch, no light sensitive. Legs are swelling, and did have the compression stocking on but took them off. Pt states that the Neuro told her that she had bumped her head as well as a stroke. PT daughter thinks she had the stroke and then fell and hit head, on left side. Weight 208 lbs 06/18/2024 DC from facilit y 06/16/24. Left lower lid droopying, watering, no hurt, no itch, no light sensitive. Legs are swelling, and did have the compression stocking on but took them off. Pt states that the Neuro told her that she had bumped her head as well as a stroke. PT daughter thinks she had the stroke and then fell and hit head, on left side. BMI 33.57 kg/m2 06/18/2024 DC from facilit y 06/16/24. Left lower lid droopying, watering, no hurt, no itch, no light sensitive. Legs are swelling, and did have the compression stocking on but took them off. Pt states that the Neuro told her that she had bumped her head as well as a stroke. PT daughter thinks she had the stroke and then fell and hit head, on left side. 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 06/18/2024 Longstanding persistent atrial fibrillation (ICD-10 - I48.11) This patient has a history of atrial fibrillation. The patient did have a recent stroke. Patient had a left parietal infarction with surrounding edema. Residual includes aphasia with no focal neurological deficit. It is to be noted the patient was on Eliquis 5 mg twice a day because of advanced age and CKD stage III the dose was reduced to 2.5 twice a day I informed the daughter. There was some ischemic ecchymosis. 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 Patient is fully recovered except for expressive aphasia 06/18/2024 Hypertension, unspecified type (ICD-10 - I10) Patient is on amlodipine and metoprolol tartrate. Blood pressure may be slightly elevated we will continue to follow 07/03/2024 Hypertension, unspecified type (ICD-10 - I10) 06/18/2024 Other Time spent in encounter: more then 50% time spent as belowxxxxxDecision making points;: Previsit revew of relevant medical record, obtaining and reviewed old data separately ,obtained history, performing a medically appropriate examination and evaluation, counseling and educating patient, monitoring medication, tests or procedures, documenting clinical information in the medical record, independently interpreting results and communicating the results with the patientxxxxxThis dictation was done with [employer] voice dictation system for compiling the notes. There may be errors in punctuation, grammar and spelling errors, that are unintentional that may have been missed during final editing of the document Time spent 45 minutes 07/03/2024 Other Patient is accompanied by her daughter. Patient will get home care physical therapy. Patient will see ophthalmology regarding the entropion. Which may be related to her stroke. Patient Eliquis was decreased to dose based on her age. PLAN OF TREATMENT No Information Insurance Providers Payer Name Payer Address Payer Phone Subscriber Number Group Number Insured Name Patient Relationship to Insured Coverage Start Date Coverage End Date Medicare [address] [place] [phone] [id number] March Self - patient is the insured [facility] Medicaid [address] [place] [address] [id number] March Self - patient is the insured MEDICAL (GENERAL) HISTORY Surgical History Surgery Date(Month/Year) Hysterectomy Hospitalization History Reason Date(Month/Year) February 2024 for 4 days subseque ntly in a half-way for a cerebral infarct
--- OUTSIDE RECORDS SUMMARY | 2024-12-25 18:47 | XMS_ITS | Encounter Summary ---
Author Organization [facility] Address [address] [place] [phone] Care Team Providers Care Re Recording Mixer Name Role Phone Manuela Brink MD Primary Care Provider [phone] Encounter Details Date Type Department Care Team (Late st Contact Info) Description 08/30/2024 Lab Requisition [facility] - Main Lab [address] [place] [address] Manuela Brink MD [address] [place] [phone] Essential (primary) hypertension Social History Tobacco Use [...] Associated Diagnosis Comments COMPLETE BLOOD COUNT Routine 09/02/2024 5:19 AM EST Essential (primary) hypertension BASIC METABOLIC PANEL Routine 09/02/2024 5:19 AM EST Essential (primary) hypertension documented in this encounter Results * (ABNORMAL) Basic metabolic panel (09/02/2024 5:19 AM EST) Sodium 143 133 - 145 mmol/L LAB CHEMISTRY METHOD 09/02/2024 10:03 AM EST [facility] Potassium 3.8 3.5 - 5.5 mmol/L LAB CHEMISTRY METHOD 09/02/2024 10:03 AM EST [facility] Chloride 110 96 - 110 mmol/L LAB CHEMISTRY METHOD 09/02/2024 10:03 AM [facility] CO2 27 21 - 32 mmol/L LAB CHEMISTRY METHOD 09/02/2024 10:03 AM [facility] Anion Gap 6 3 - 11 LAB CHEMISTRY METHOD 09/02/2024 10:03 AM [facility] Glucose 104(H) 70 - 100 mg/dL LAB CHEMISTRY METHOD 09/02/2024 10:03 AM [facility] BUN 14 5 - 25 mg/dL LAB CHEMISTRY METHOD 09/02/2024 10:03 AM [facility] Creatinine 1.58(H) 0.50 - 1.10 mg/dL LAB CHEMISTRY METHOD 09/02/2024 10:03 AM [facility] eGFR 32(L) >=60 mL/min/1. 73m2 LAB CHEMISTRY METHOD 09/02/2024 10:03 AM [facility] Comment:Calculation based on the??Chronic Kidney Disease Epidemiology Collaboration (CKD-EPI) equation refit??without adjustment for race. BUN/Creatinine Ratio 8.9 LAB CHEMISTRY METHOD 09/02/2024 10:03 AM [facility] Calcium 9.5 8.5 - 10.5 mg/dL LAB CHEMISTRY METHOD 09/02/2024 10:03 AM [facility] Blood Venous blood specimen / Unknown Venipuncture / Unknown 09/02/2024 5:19 AM EST 09/02/2024 8:55 AM EST us Manuela Brink MD LAB BLOOD ORDERABLES Final Res ult [facility] [address] [place] [address], * (ABNORMAL) Complete blood count (09/02/2024 5:19 AM EST) WBC 4.9 4.8 - 10.8 K/[facility] LAB HEMETOLOGY METHOD 09/02/2024 9:40 AM [facility] RBC 4.00 3.80 - 4.80 M/mcL LAB HEMETOLOGY METHOD 09/02/2024 9:40 AM [facility] Hemoglobin 11.6 11.5 - 16.0 g/dL LAB HEMETOLOGY METHOD 09/02/2024 9:40 AM [facility] Hematocrit 37.2 35.0 - 47.0 % LAB HEMETOLOGY METHOD 09/02/2024 9:40 AM [facility] MCV 92.3 79.0 - 98.0 FL LAB HEMETOLOGY METHOD 09/02/2024 9:40 AM [facility] MCH 28.8 27.0 - 32.0 pcg LAB HEMETOLOGY METHOD 09/02/2024 9:40 AM [facility] MCHC 31.2(L) 32.0 - 37.0 g/dL LAB HEMETOLOGY METHOD 09/02/2024 9:40 AM [facility] RDW 14.4 11.0 - 15.0 % LAB HEMETOLOGY METHOD 09/02/2024 9:40 AM [facility] Platelets 159 130 - 400 K/mcL LAB HEMETOLOGY METHOD 09/02/2024 9:40 AM [facility] MPV 11.3(H) 7.0 - 11.0 FL LAB HEMETOLOGY METHOD 09/02/2024 9:40 AM [facility] NRBC 0.0 <1.0 % LAB HEMETOLOGY METHOD 09/02/2024 9:40 AM [facility] NRBC Absolute 0.00 <0.10 K/mcL LAB HEMETOLOGY METHOD 09/02/2024 9:40 AM [facility] Blood Venous blood specimen / Unknown Venipuncture / Unknown 09/02/2024 5:19 AM EST 09/02/2024 8:55 AM EST Manuela Brink MD LAB BLOOD ORDERABLES [facility] ([facility] [address] [place] [address], documented in this encounter Visit Diagnoses Diagnosis Essential (primary) hypertension Unspecified essential hypertension documented in this encounter Additional Health Concerns Infection Onset Date Last Indicated Resolved Time Respiratory Rule-Out 12/19/2024 12/19/2024 025 1:52 PM EST Influenza 12/19/2024 12/19/2024 documented as of this encounter Care Teams Re Recording Mixer Relationship Specialty Start Date End Date Manuela Brink MD [address] [place] [phone] PCP - General Internal Medicine 09/19/24 documented as of this encounter
--- OUTSIDE RECORDS SUMMARY | 2024-12-25 18:47 | XMS_ITS | Encounter Summary ---
Author Organization [facility] Address [address] [place] [phone] Care Team Providers Care Security Analyst Name Role Phone Manuela Brink MD Primary Care Provider [phone] Encounter Details Date Type Department Care Team (Late st Contact Info) Description 09/18/2024 Lab Requisition [facility] - Main Lab [address] [place] [address] Manuela Brink MD [address] [place] [phone] Other lack of coordination; Chronic kidney disease, unspecified; Encephalopathy, unspecified Social History Tobacco Use Types Packs/Day Years [...] Associated Diagnosis Comments COMPLETE BLOOD COUNT Routine 09/18/2024 7:39 AM EST Other lack of coordination Chronic kidney disease, unspecified Encephalopathy, unspecified BASIC METABOLIC PANEL Routine 09/18/2024 7:39 AM EST Other lack of coordination Chronic kidney disease, unspecified Encephalopathy, unspecified documented in this encounter Results * (ABNORMAL) Complete blood count (09/18/2024 7:39 AM EST) WBC 4.1(L) 4.8 - 10.8 K/mcL LAB HEMETOLOGY METHOD 09/18/2024 12:14 PM EST [facility] RBC 4.00 3.80 - 4.80 M/mcL LAB HEMETOLOGY METHOD 09/18/2024 12:14 PM [facility] Hemoglobin 11.6 11.5 - 16.0 g/dL LAB HEMETOLOGY METHOD 09/18/2024 12:14 PM [facility] Hematocrit 36.9 35.0 - 47.0 % LAB HEMETOLOGY METHOD 09/18/2024 12:14 PM [facility] MCV 91.6 79.0 - 98.0 FL LAB HEMETOLOGY METHOD 09/18/2024 12:14 PM [facility] MCH 28.8 27.0 - 32.0 pcg LAB HEMETOLOGY METHOD 09/18/2024 12:14 PM [facility] MCHC 31.4(L) 32.0 - 37.0 g/dL LAB HEMETOLOGY METHOD 09/18/2024 12:14 PM [facility] RDW 15.4(H) 11.0 - 15.0 % LAB HEMETOLOGY METHOD 09/18/2024 12:14 PM [facility] Platelets 155 130 - 400 K/mcL LAB HEMETOLOGY METHOD 09/18/2024 12:14 PM [facility] MPV 11.0 7.0 - 11.0 FL LAB HEMETOLOGY METHOD 09/18/2024 12:14 PM [facility] NRBC 0.0 <1.0 % LAB HEMETOLOGY METHOD 09/18/2024 12:14 PM [facility] NRBC Absolute 0.00 <0.10 K/mcL LAB HEMETOLOGY METHOD 09/18/2024 12:14 PM [facility] Blood Venous blood specimen / Unknown Venipuncture / Unknown 09/18/2024 7:39 AM EST 09/18/2024 11:32 AM EST Manuela Brink MD LAB BLOOD ORDERABLES Final Res ult [facility] [address] [place] [address], * (ABNORMAL) Basic metabolic panel (09/18/2024 7:39 AM EST) Sodium 141 133 - 145 mmol/L LAB CHEMISTRY METHOD 09/18/2024 1:08 PM [facility] Potassium 4.4 3.5 - 5.5 mmol/L LAB CHEMISTRY METHOD 09/18/2024 1:08 PM [facility] Chloride 110 96 - 110 mmol/L LAB CHEMISTRY METHOD 09/18/2024 1:08 PM [facility] CO2 24 21 - 32 mmol/L LAB CHEMISTRY METHOD 09/18/2024 1:08 PM [facility] Anion Gap 7 3 - 11 LAB CHEMISTRY METHOD 09/18/2024 1:08 PM [facility] Glucose 91 70 - 100 mg/dL LAB CHEMISTRY METHOD 09/18/2024 1:08 PM [facility] BUN 16 5 - 25 mg/dL LAB CHEMISTRY METHOD 09/18/2024 1:08 PM [facility] Creatinine 1.41(H) 0.50 - 1.10 mg/dL LAB CHEMISTRY METHOD 09/18/2024 1:08 PM [facility] eGFR 37(L) >=60 mL/min/1. 73m2 LAB CHEMISTRY METHOD 09/18/2024 1:08 PM [facility] Comment:Calculation based on the??Chronic Kidney Disease Epidemiology Collaboration (CKD-EPI) equation refit??without adjustment for race. BUN/Creatinine Ratio 11.3 LAB CHEMISTRY METHOD 09/18/2024 1:08 PM [facility] Calcium 9.7 8.5 - 10.5 mg/dL LAB CHEMISTRY METHOD 09/18/2024 1:08 PM EST [facility] Blood Venous blood specimen / Unknown Venipuncture / Unknown 09/18/2024 7:39 AM EST 09/18/2024 11:34 AM EST Manuela Brikn MD LAB BLOOD ORDERABLES Final Res ult [facility] [address] [place] [address], documented in this encounter Visit Diagnoses Diagnosis Other lack of coordination Chronic kidney disease, unspecified Encephalopathy, unspecified documented in this encounter Additional Health Concerns Infection Onset Date Last Indicated Resolved Time Respiratory Rule-Out 12/19/2024 12/19/2024 025 1:52 PM EST Influenza 12/19/2024 12/19/2024 documented as of this encounter Care Teams Security Analyst Relationship Specialty Start Date End Date Manuela Brink MD [address] [place] [phone] PCP - General Internal Medicine 09/19/24 documented as of this encounter
--- OUTSIDE RECORDS SUMMARY | 2024-12-25 18:47 | XMS_ITS | Encounter Summary ---
Author Organization [facility] Address [address] [place] [phone] Care Team Providers Care Poultry Processing Supervisor Name Role Phone Manuela Brink MD Primary Care Provider [phone] Encounter Details Date Type Department Care Team (Latest Contact Info) Description 09/17/2024 Lab Requisition [facility] - Main Lab 299 [facility] [place] [address] Manuela Brink MD [address] [place] [phone] Dysuria; Encephalopathy, unspecified; Essential (primary) hypertension; Unspecified atrial fibrillation (CMS/HCC); Chronic kidney disease, unspecified; Type 2 diabetes mellitus without complications (CMS/HCC) Social History Tobacco Use Types Packs/Day Years [...] Procedure Name Priority Date/Time Associated Diagnosis Comments URINALYSIS WITH REFLEX MICROSCOPIC Routine 09/16/2024 12:00 AM EST Dysuria Encephalopathy, unspecified Essential (primary) hypertension Unspecified atrial fibrillation (CMS/HCC) Chronic kidney disease, unspecified Type 2 diabetes mellitus without complications (CMS/HCC) URINALYSIS WITH REFLEX MICROSCOPIC Routine 09/16/2024 12:00 AM EST Dysuria Encephalopathy, unspecified Essential (primary) hypertension Unspecified atrial fibrillation (CMS/HCC) Chronic kidney disease, unspecified Type 2 diabetes mellitus without complications (CMS/HCC) CULTURE URINE Routine 09/16/2024 12:00 AM EST Dysuria Encephalopathy, unspecified Essential (primary) hypertension Unspecified atrial fibrillation ([facility]/HCC) Chronic kidney disease, unspecified Type 2 diabetes mellitus without complications ([facility]) documented in this encounter Results * (ABNORMAL) Urinalysis with reflex microscopic (09/16/2024 12:00 AM EST) Specific [place] Urine 1.015 1.003 - 1.030 LAB URINALYSIS - AUTOMATED METHOD 09/17/2024 12:39 PM [facility] pH, Urine 6.5 5.0 - 8.0 pH LAB URINALYSIS - AUTOMATED METHOD 09/17/2024 12:39 PM [facility] Leukocytes, Urine Large(A) Negative LAB URINALYSIS - AUTOMATED METHOD 09/17/2024 12:39 PM [facility] Nitrite, Urine Negative Negative LAB URINALYSIS - AUTOMATED METHOD 09/17/2024 12:39 PM [facility] Protein, Urine Trace <=Trace mg/dL LAB URINALYSIS - AUTOMATED METHOD 09/17/2024 12:39 PM [facility] Glucose, Urine Negative Negative mg/dL LAB URINALYSIS - AUTOMATED METHOD 09/17/2024 12:39 PM [facility] Ketones, Urine Negative Negative mg/dL LAB URINALYSIS - AUTOMATED METHOD 09/17/2024 12:39 PM [facility] Urobilinogen, Urine 0.2 0.2 - 1.0 mg/dL LAB URINALYSIS - AUTOMATED METHOD 09/17/2024 12:39 PM [facility] Bilirubin, Urine Negative Negative LAB URINALYSIS - AUTOMATED METHOD 09/17/2024 12:39 PM [facility] Blood, Urine Negative Negative LAB URINALYSIS - AUTOMATED METHOD 09/17/2024 12:39 PM [facility] RBC, Urine 1.2 0 - 4 /HPF LAB URINALYSIS - AUTOMATED METHOD 09/17/2024 12:39 PM [facility] WBC, Urine 16.7(H) 0 - 4 /HPF LAB URINALYSIS - AUTOMATED METHOD 09/17/2024 12:39 PM [facility] Squamous Epithelial, Urine >100(H) 0 - 60 /LPF LAB URINALYSIS - AUTOMATED METHOD 09/17/2024 12:39 PM [facility] Bacteria, Urine Negative Negative /HPF LAB URINALYSIS - AUTOMATED METHOD 09/17/2024 12:39 PM [facility] Hyaline Casts, Urine 0.4 0 - 3 /LPF LAB URINALYSIS - AUTOMATED METHOD 09/17/2024 12:39 PM [facility] Urine Urine specimen obtained by clean catch procedure / Unknown Non-blood Collection / Unknown 09/16/2024 09/17/2024 11:50 AM EST us Manuela Brink MD LAB URINE ORDERABLES Final Res ult [facility] [address] [place] [address], [place] [phone] * Culture urine (09/16/2024 12:00 AM EST) Culture, Urine <10,000 cfu/mL Mixed bacterial geovanny 09/19/2024 11:56 AM [facility] Urine Urine specimen obtained by clean catch procedure / Unknown Non-blood Collection / Unknown 09/16/2024 09/17/2024 11:50 AM EST us Manuela Brink MD LAB MICROBIOLOGY - GENERAL ORD ERABLES Final Result Performing Organization Address City/[facility]/ZIP Co de Phone Number [facility] [address] [place] [address], [place] [phone] documented in this encounter Visit Diagnoses Diagnosis Dysuria Encephalopathy, unspecified Essential (primary) hypertension Unspecified essential hypertension Unspecified atrial fibrillation (CMS/HCC) Chronic kidney disease, unspecified Type 2 diabetes mellitus without complications (CMS/HCC) documented in this encounter Additional Health Concerns Infection Onset Date Last Indicated Resolved Time Respiratory Rule-Out 12/19/2024 12/19/2024 025 1:52 PM EST Influenza 12/19/2024 12/19/2024 documented as of this encounter Care Teams Poultry Processing Supervisor Relationship Specialty Start Date End Date Manuela Brink MD [address] [place] [phone] PCP - General Internal Medicine 09/19/24 documented as of this encounter
--- OUTSIDE RECORDS SUMMARY | 2024-12-25 18:47 | XMS_ITS ---
Author Organization [facility]IN MD Address [address] [place] [phone] Care Team Providers Care Larry Operator Name Role Phone LI MARTIN Primary Care Provider REASON FOR VISIT needs new RX MEDICATIONS Medication SIG (Take, Route, Frequency, Duration) Notes Start Date End Date Status amLODIPine Besylate 10 MG 1 tablet Orall y Once a day for 90 days Active Encounters Encounter Location Date Provider Diagnosis LI MARTIN MD [address] [place] [phone] 07/16/2024 [facility] PLAN OF TREATMENT Medication Medication Name Sig Start Date Stop Date Notes amLODIPine Besylate 10 MG 1 tablet Orall y Once a day for 90 days Progress Notes * Ana Paula COLINDRESDOB:1940 ([age] yo F)Acc No.[id number]:07/16/2024 Patient:??USHA Ana Paula :1940?Age:84 Y?Sex:Fe male Address:[address] [place] [address] [address] , [address] , [place] [address] * Refills?? Refill amLODIPine Besylate Tablet, 10 MG, Orally, 90 Tablet, 1 tablet, Once a day, 90 days, Refills=3 * true * Date:??
--- OUTSIDE RECORDS SUMMARY | 2024-12-25 18:47 | XMS_ITS | Encounter Summary ---
Author Organization [facility] Address [address] [place] [phone] Care Team Providers Care Coal Deliverer Name Role Phone Manuela Brink MD Primary Care Provider [phone] Encounter Details Date Type Department Care Team (Late st Contact Info) Description 12/07/2024 Lab Requisition [facility] - Main Lab [address] [facility] [place] [address] Richard Huddleston MD [address] [place], [place] [id number] Chronic kidney disease, unspecified; Type 2 diabetes [...] Associated Diagnosis Comments COMPLETE BLOOD COUNT Routine 12/09/2024 5:14 AM EST Chronic kidney disease, unspecified Type 2 diabetes mellitus without complications (CMS/HCC) HEMOGLOBIN A1C Routine 12/09/2024 5:14 AM EST Chronic kidney disease, unspecified Type 2 diabetes mellitus without complications (CMS/HCC) COMPREHENSIVE METABOLIC PANEL Routine 12/09/2024 5:14 AM EST Chronic kidney disease, unspecified Type 2 diabetes mellitus without complications (CMS/HCC) documented in this encounter Results * (ABNORMAL) Hemoglobin A1c (12/09/2024 5:14 AM EST) Hemoglobin A1C 6.7(H) <6.5 % LAB CHEMISTRY METHOD 12/09/2024 6:04 PM [facility] Mean Bld Glu Estim. 146 mg/dL LAB CHEMISTRY METHOD 12/09/2024 6:04 PM [facility] Blood Venous blood specimen / Unknown Venipuncture / Unknown 12/09/2024 5:14 AM EST 12/09/2024 10:53 AM EST us Richard Huddleston MD LAB BLOOD ORDERABLES Final Resul t [facility] [address] [place] [address], [place] [phone] * (ABNORMAL) Comprehensive metabolic panel (12/09/2024 5:14 AM EST) [facility] Sodium 142 133 - 145 mmol/L LAB CHEMISTRY METHOD 12/09/2024 12:35 PM [facility] Potassium 4.1 3.5 - 5.5 mmol/L LAB CHEMISTRY METHOD 12/09/2024 12:35 PM [facility] Chloride 110 96 - 110 mmol/L LAB CHEMISTRY METHOD 12/09/2024 12:35 PM [facility] CO2 22 21 - 32 mmol/L LAB CHEMISTRY METHOD 12/09/2024 12:35 PM [facility] Anion Gap 10 3 - 11 LAB CHEMISTRY METHOD 12/09/2024 12:35 PM [facility] Glucose 96 70 - 100 mg/dL LAB CHEMISTRY METHOD 12/09/2024 12:35 PM [facility] BUN 21 5 - 25 mg/dL LAB CHEMISTRY METHOD 12/09/2024 12:35 PM [facility] Creatinine 1.52(H) 0.50 - 1.10 mg/dL LAB CHEMISTRY METHOD 12/09/2024 12:35 PM [facility] eGFR 33(L) >=60 mL/min/1. 73m2 LAB CHEMISTRY METHOD 12/09/2024 12:35 PM [facility] Comment:Calculation based on the??Chronic Kidney Disease Epidemiology Collaboration (CKD-EPI) equation refit??without adjustment for race. BUN/Creatinine Ratio 13.8 LAB CHEMISTRY METHOD 12/09/2024 12:35 PM [facility] Calcium 9.3 8.5 - 10.5 mg/dL LAB CHEMISTRY METHOD 12/09/2024 12:35 PM [facility] AST (SGOT) 13 10 - 42 unit/L LAB CHEMISTRY METHOD 12/09/2024 12:35 PM [facility] ALT (SGPT) 15 10 - 60 unit/L LAB CHEMISTRY METHOD 12/09/2024 12:35 PM [facility] Alkaline Phosphatase 110 42 - 121 unit/L LAB CHEMISTRY METHOD 12/09/2024 12:35 PM [facility] Total Protein 6.5 6.0 - 8.0 g/dL LAB CHEMISTRY METHOD 12/09/2024 12:35 PM [facility] Albumin 3.1(L) 3.2 - 5.0 g/dL LAB CHEMISTRY METHOD 12/09/2024 12:35 PM [facility] Total Bilirubin 0.4 0.0 - 1.4 mg/dL LAB CHEMISTRY METHOD 12/09/2024 12:35 PM [facility] Blood Venous blood specimen / Unknown Venipuncture / Unknown 12/09/2024 5:14 AM EST 12/09/2024 10:52 AM EST us Richard Huddleston MD LAB BLOOD ORDERABLES Final Resul t [facility] [address] [place] [address], * (ABNORMAL) Complete blood count (12/09/2024 5:14 AM EST) [facility] WBC 4.8 4.8 - 10.8 K/mcL LAB HEMETOLOGY METHOD 12/09/2024 2:17 PM [facility] RBC 4.20 3.80 - 4.80 M/mcL LAB HEMETOLOGY METHOD 12/09/2024 2:17 PM [facility] Hemoglobin 12.6 11.5 - 16.0 g/dL LAB HEMETOLOGY METHOD 12/09/2024 2:17 PM [facility] Hematocrit 39.5 35.0 - 47.0 % LAB HEMETOLOGY METHOD 12/09/2024 2:17 PM [facility] MCV 93.4 79.0 - 98.0 FL LAB HEMETOLOGY METHOD 12/09/2024 2:17 PM [facility] MCH 29.8 27.0 - 32.0 pcg LAB HEMETOLOGY METHOD 12/09/2024 2:17 PM [facility] MCHC 31.9(L) 32.0 - 37.0 g/dL LAB HEMETOLOGY METHOD 12/09/2024 2:17 PM [facility] RDW 13.6 11.0 - 15.0 % LAB HEMETOLOGY METHOD 12/09/2024 2:17 PM [facility] Platelets 168 130 - 400 K/mcL LAB HEMETOLOGY METHOD 12/09/2024 2:17 PM [facility] MPV 11.3(H) 7.0 - 11.0 FL LAB HEMETOLOGY METHOD 12/09/2024 2:17 PM [facility] NRBC 0.0 <1.0 % LAB HEMETOLOGY METHOD 12/09/2024 2:17 PM [facility] NRBC Absolute 0.00 <0.10 K/mcL LAB HEMETOLOGY METHOD 12/09/2024 2:[address] [facility] Blood Venous blood specimen / Unknown Venipuncture / Unknown 12/09/2024 5:14 AM EST 12/09/2024 10:53 AM EST us Richard Huddleston MD LAB BLOOD ORDERABLES Final Resul t [facility] [address] [place] [address], documented in this encounter Visit Diagnoses Diagnosis Chronic kidney disease, unspecified Type 2 diabetes mellitus without complications (CMS/HCC) documented in this encounter Additional Health Concerns Infection Onset Date Last Indicated Resolved Time Respiratory Rule-Out 12/19/2024 12/19/2024 025 1:52 PM EST Influenza 12/19/2024 12/19/2024 documented as of this encounter Care Teams Coal Deliverer Relationship Specialty Start Date End Date Manuela Brink MD [address] [place] [id number] PCP - General Internal Medicine 09/19/24 documented as of this encounter
--- OUTSIDE RECORDS SUMMARY | 2024-12-25 18:47 | XMS_ITS | Encounter Summary ---
Author Organization [facility] Address [address] [place] [address] Care Team Providers Care Fire Suppression Captain Name Role Phone Manuela Brink MD Primary Care Provider [phone] Encounter Details Date Type Department Care Team (Late st Contact Info) Description 08/17/2024 Lab Requisition [facility] - Main Lab 299 [facility] [place] [address] Manuela Brink MD [address] [place] [phone] Essential (primary) hypertension Social History Tobacco Use [...] Procedure Name Priority Date/Time Associated Diagnosis Comments TRAVEL PHLEBOTOMY FEE Routine 08/19/2024 5:04 AM EST Essential (primary) hypertension COMPLETE BLOOD COUNT Routine 08/19/2024 5:04 AM EST Essential (primary) hypertension BASIC METABOLIC PANEL Routine 08/19/2024 5:04 AM EST Essential (primary) hypertension documented in this encounter Results * Travel phlebotomy fee (08/19/2024 5:04 AM EST) [facility] TRAVEL PHLEBOTOMY FEE Completed 08/19/2024 10:01 AM EST [facility] Blood Venous blood specimen / Unknown Venipuncture / Unknown 08/19/2024 5:04 AM EST 08/19/2024 9:49 AM EST us Manuela Brink MD LAB BLOOD ORDERABLES Final Res ult [facility] [address] [place] [address], [place] [phone] * (ABNORMAL) Basic metabolic panel (08/19/2024 5:04 AM EST) Sodium 142 133 - 145 mmol/L LAB CHEMISTRY METHOD 08/19/2024 10:58 AM [facility] Potassium 4.3 3.5 - 5.5 mmol/L LAB CHEMISTRY METHOD 08/19/2024 10:58 AM [facility] Chloride 108 96 - 110 mmol/L LAB CHEMISTRY METHOD 08/19/2024 10:58 AM [facility] CO2 29 21 - 32 mmol/L LAB CHEMISTRY METHOD 08/19/2024 10:58 AM [facility] Anion Gap 5 3 - 11 LAB CHEMISTRY METHOD 08/19/2024 10:58 AM [facility] Glucose 107(H) 70 - 100 mg/dL LAB CHEMISTRY METHOD 08/19/2024 10:58 AM [facility] BUN 22 5 - 25 mg/dL LAB CHEMISTRY METHOD 08/19/2024 10:58 AM [facility] Creatinine 1.46(H) 0.50 - 1.10 mg/dL LAB CHEMISTRY METHOD 08/19/2024 10:58 AM [facility] eGFR 35(L) >=60 mL/min/1. 73m2 LAB CHEMISTRY METHOD 08/19/2024 10:58 AM [facility] Comment:Calculation based on the??Chronic Kidney Disease Epidemiology Collaboration (CKD-EPI) equation refit??without adjustment for race. BUN/Creatinine Ratio 15.1 LAB CHEMISTRY METHOD 08/19/2024 10:58 AM EST [facility] Calcium 9.9 8.5 - 10.5 mg/dL LAB CHEMISTRY METHOD 08/19/2024 10:58 AM [facility] Blood Venous blood specimen / Unknown Venipuncture / Unknown 08/19/2024 5:04 AM EST 08/19/2024 9:43 AM EST us Manuela Brink MD LAB BLOOD ORDERABLES Final Res ult [facility] [address] [place] [address], [place] [phone] * (ABNORMAL) Complete blood count (08/19/2024 5:04 AM EST) WBC 5.1 4.8 - 10.8 K/mcL LAB HEMETOLOGY METHOD 08/19/2024 10:33 AM [facility] RBC 4.50 3.80 - 4.80 M/mcL LAB HEMETOLOGY METHOD 08/19/2024 10:33 AM [facility] Hemoglobin 12.8 11.5 - 16.0 g/dL LAB HEMETOLOGY METHOD 08/19/2024 10:33 AM [facility] Hematocrit 41.0 35.0 - 47.0 % LAB HEMETOLOGY METHOD 08/19/2024 10:33 AM [facility] MCV 90.7 79.0 - 98.0 FL LAB HEMETOLOGY METHOD 08/19/2024 10:33 AM [facility] MCH 28.3 27.0 - 32.0 pcg LAB HEMETOLOGY METHOD 08/19/2024 10:33 AM [facility] MCHC 31.2(L) 32.0 - 37.0 g/dL LAB HEMETOLOGY METHOD 08/19/2024 10:33 AM [facility] RDW 13.3 11.0 - 15.0 % LAB HEMETOLOGY METHOD 08/19/2024 10:33 AM EST [facility] Platelets 206 130 - 400 K/mcL LAB HEMETOLOGY METHOD 08/19/2024 10:33 AM EST [facility] MPV 11.0 7.0 - 11.0 FL LAB HEMETOLOGY METHOD 08/19/2024 10:33 AM EST [facility] NRBC 0.0 <1.0 % LAB HEMETOLOGY METHOD 08/19/2024 10:33 AM EST [facility] NRBC Absolute 0.00 <0.10 K/mcL LAB HEMETOLOGY METHOD 08/19/2024 10:33 AM [facility] Blood Venous blood specimen / Unknown Venipuncture / Unknown 08/19/2024 5:04 AM EST 08/19/2024 9:43 AM EST us Manuela Brink MD LAB BLOOD ORDERABLES Final Res ult [facility] [address] [place] [address], documented in this encounter Visit Diagnoses Diagnosis Essential (primary) hypertension Unspecified essential hypertension documented in this encounter Additional Health Concerns Infection Onset Date Last Indicated Resolved Time Respiratory Rule-Out 12/19/2024 12/19/2024 025 1:52 PM EST Influenza 12/19/2024 12/19/2024 documented as of this encounter Care Teams Fire Suppression Captain Relationship Specialty Start Date End Date Manuela Brink MD [address] [place] [phone] PCP - General Internal Medicine 09/19/24 documented as of this encounter
--- OUTSIDE RECORDS SUMMARY | 2024-12-25 18:48 | XMS_ITS | Clinical Summary ---
Author Organization [address] [facility] Address [address] [place] [address] Phone Care Team Providers Care Fire Prevention Inspector Name Role Phone Manuela Brink MD Primary Care Provider [phone] Encounters Date Type Department Care Team Description 12/20/2024 Lab Requisition [facility] [address] [place] [address] Richard Huddleston MD Acute cough; Nasal congestion; Weakness 12/07/2024 Lab Requisition [facility] [address] [place] [address] Richard Huddleston MD Chronic kidney disease, unspecified; Type 2 diabetes mellitus without complications (CMS/HCC) from Last 3 Months Social History Tobacco Use Types Packs/Day Years Used Date Smoking Tobacco: Never Assessed Comments Unknown Sex and Gender Information Value Date Recorded Sex Assigned at Not on file Legal Sex Female 1:32 PM EDT Gender Identity Not on file Sexual Orientation Not on file Plan of Treatment Health Maintenance Due Date Last Done Comments Diabetes: Annual Foot Exam 1950 Diabetes: Annual Retina Eye Exam 1950 DTaP,Tdap,and Td Vaccines (1 - Tdap) 1958 Pneumococcal Vaccine: 50+ Years (1 of 2 - PCV) 1958 Zoster Vaccines (1 of 2) 1989 RSV Immunization Patients 60+ Years Old (1 - 1-dose 75+ series) 2014 Cholesterol Screening (Lipid Panel) 05/17/2024 Depression Screening 05/17/2024 Falls Risk Assessment 05/17/2024 Medicare Annual Wellness Visit 05/17/2024 Osteoporosis Screening (Bone Density Screening) 05/17/2024 Social Influencers of Health Screening 05/17/2024 COVID-19 Vaccine ( season) 2024 Influenza Vaccine (#1) 2024 Diabetes: Annual Urine Albumin-Creatinine Ratio (uACR) 09/17/2024 Diabetes: Blood Sugar Control Test (HGBA1C) 06/08/2025 12/09/2024 Diabetes: Annual GFR (Glomerular Filtration Rate) 12/09/2025 12/09/2024, 09/18/2024, 09/02/2024, Additional history exists Hypertension/CHF/CAD Annual BMP Blood Test 12/09/2025 12/09/2024, 09/18/2024, 09/02/2024, Additional history exists HIB Vaccines Aged Out No longer eligi ble based on patient's age to complete this topic HPV Vaccines Aged Out No longer eligi ble based on patient's age to complete this topic Hepatitis A Vaccines Aged Out No long er eligible based on patient's age to complete this topic Hepatitis B Vaccines Aged Out No long er eligible based on patient's age to complete this topic IPV Vaccines Aged Out No longer eligi ble based on patient's age to complete this topic MMR Vaccines Aged Out No longer eligi ble based on patient's age to complete this topic Meningococcal ACWY Vaccine Aged Out N o longer eligible based on patient's age to complete this topic Meningococcal B Vacine Aged Out No lo nger eligible based on patient's age to complete this topic RSV Immunization Patients Under 20 months Aged Out No longer eligible based on patient's age to complete this topic Varicella Vaccines Aged Out No longer eligible based on patient's age to complete this topic Procedures Procedure Name Priority Date/Time Associated Diagnosis Comments [id number], RSV, FLU A AND B QUALITATIVE RT-PCR, LOCAL REFERENCE LAB Routine 12/19/2024 12:00 AM EST Acute cough Nasal congestion Weakness HEMOGLOBIN A1C Routine 12/09/2024 5:14 AM EST Chronic kidney disease, unspecified Type 2 diabetes mellitus without complications (CMS/HCC) COMPREHENSIVE METABOLIC PANEL Routine 12/09/2024 5:14 AM EST Chronic kidney disease, unspecified Type 2 diabetes mellitus without complications (CMS/HCC) COMPLETE BLOOD COUNT Routine 12/09/2024 5:14 AM EST Chronic kidney disease, unspecified Type 2 diabetes mellitus without complications (CMS/HCC) from Last 3 Months Results * (ABNORMAL) [id number], RSV, Influenza A and B qualitative RT-PCR (12/19/2024 12:00 AM EST) SARS COV-2 Not Detected Not Detected LAB MOLECULAR DIAGNOSTICS METHOD 12/20/2024 1:52 PM [facility] Comment: Disclaimer: The manner in which this information is used to guide patient care is the responsibility of the healthcare provider. Testing was performed using the [employer] Alinity m SARS-CoV-2 test. This test has been [...] for Healthcare Providers can be found at: https://www.fda.gov/media/253970/download Fact sheet for Patients can be found at: https://www.fda.gov/media/934357/download Influenza A PCR Detected(A ) Not Detected LAB MOLECULAR DIAGNOSTICS METHOD 12/20/2024 1:52 PM [facility] Comment:This patient is posi tive for influenza A. If the patient is admitted, please order the Respiratory Virus Panel PCR (Epic ID: [id number]) so our lab can subtype the influenza A, per CDC recommendations. Influenza B PCR Not Detected Not Detected LAB MOLECULAR DIAGNOSTICS METHOD 12/20/2024 1:52 PM [facility] RSV PCR Not Detected Not Detected LAB MOLECULAR DIAGNOSTICS METHOD 12/20/2024 1:52 PM [facility] Swab Nasopharyngeal structure / Unknown 12/19/2024 12/20/2024 11:03 AM EST us Richard Huddleston MD LAB MICROBIOLOGY - GENERAL ORDER BECKY Final Result [facility] [address] [place] [address], [place] [phone] * (ABNORMAL) Complete blood count (12/09/2024 5:14 AM EST) WBC 4.8 4.8 - 10.8 K/mcL LAB HEMETOLOGY METHOD 12/09/2024 2:17 PM [facility] RBC 4.20 3.80 - 4.80 M/mcL LAB HEMETOLOGY METHOD 12/09/2024 2:17 PM [facility] Hemoglobin 12.6 11.5 - 16.0 g/dL LAB HEMETOLOGY METHOD 12/09/2024 2:17 PM [facility] Hematocrit 39.5 35.0 - 47.0 % LAB HEMETOLOGY METHOD 12/09/2024 2:17 PM [facility] MCV 93.4 79.0 - 98.0 FL LAB HEMETOLOGY METHOD 12/09/2024 2:17 PM [facility] MCH 29.8 27.0 - 32.0 pcg LAB HEMETOLOGY METHOD 12/09/2024 2:17 PM [facility] MCHC 31.9(L) 32.0 - 37.0 g/dL LAB HEMETOLOGY METHOD 12/09/2024 2:17 PM [facility] RDW 13.6 11.0 - 15.0 % LAB HEMETOLOGY METHOD 12/09/2024 2:17 PM [facility] Platelets 168 130 - 400 K/mcL LAB HEMETOLOGY METHOD 12/09/2024 2:17 PM [facility] MPV 11.3(H) 7.0 - 11.0 FL LAB HEMETOLOGY METHOD 12/09/2024 2:17 PM EST [facility] NRBC 0.0 <1.0 % LAB HEMETOLOGY METHOD 12/09/2024 2:17 PM EST [facility] NRBC Absolute 0.00 <0.10 K/mcL LAB HEMETOLOGY METHOD 12/09/2024 2:17 PM EST [facility] Blood Venous blood specimen / Unknown Venipuncture / Unknown 12/09/2024 5:14 AM EST 12/09/2024 10:53 AM EST us Richard Huddleston MD LAB BLOOD ORDERABLES Final Resul t Performing Organization Address [facility]/ZIP Co de Phone Number [facility] [address] [place] [address], [place] [phone] * (ABNORMAL) Hemoglobin A1c (12/09/2024 5:14 AM EST) Hemoglobin A1C 6.7(H) <6.5 % LAB CHEMISTRY METHOD 12/09/2024 6:04 PM EST [facility] Mean Bld Glu Estim. 146 mg/dL LAB CHEMISTRY METHOD 12/09/2024 6:04 PM EST [facility] Blood Venous blood specimen / Unknown Venipuncture / Unknown 12/09/2024 5:14 AM EST 12/09/2024 10:53 AM EST us Richard Huddleston MD LAB BLOOD ORDERABLES Final Resul t [facility] [address] [place] [address], [place] [phone] * (ABNORMAL) Comprehensive metabolic panel (12/09/2024 5:14 AM EST) Sodium 142 133 - 145 mmol/L LAB CHEMISTRY METHOD 12/09/2024 12:35 PM [facility] Potassium 4.1 3.5 - 5.5 mmol/L LAB CHEMISTRY METHOD 12/09/2024 12:35 PM [facility] Chloride 110 96 - 110 mmol/L LAB CHEMISTRY METHOD 12/09/2024 12:35 PM [facility] CO2 22 21 - 32 mmol/L LAB CHEMISTRY METHOD 12/09/2024 12:35 PM [facility] Anion Gap 10 3 - 11 LAB CHEMISTRY METHOD 12/09/2024 12:35 PM [facility] Glucose 96 70 - 100 mg/dL LAB CHEMISTRY METHOD 12/09/2024 12:35 PM [facility] BUN 21 5 - 25 mg/dL LAB CHEMISTRY METHOD 12/09/2024 12:35 PM [facility] Creatinine 1.52(H) 0.50 - 1.10 mg/dL LAB CHEMISTRY METHOD 12/09/2024 12:35 PM [facility] eGFR 33(L) >=60 mL/min/1. 73m2 LAB CHEMISTRY METHOD 12/09/2024 12:35 PM [facility] Comment:Calculation based on the??Chronic Kidney Disease Epidemiology Collaboration (CKD-EPI) equation refit??without adjustment for race. BUN/Creatinine Ratio 13.8 LAB CHEMISTRY METHOD 12/09/2024 12:35 PM [facility] Calcium 9.3 8.5 - 10.5 mg/dL LAB CHEMISTRY METHOD 12/09/2024 12:35 PM [facility] AST (SGOT) 13 10 - 42 unit/L LAB CHEMISTRY METHOD 12/09/2024 12:35 PM [facility] ALT (SGPT) 15 10 - 60 unit/L LAB CHEMISTRY METHOD 12/09/2024 12:35 PM [facility] Alkaline Phosphatase 110 42 - 121 unit/L LAB CHEMISTRY METHOD 12/09/2024 12:35 PM [facility] Total Protein 6.5 6.0 - 8.0 g/dL LAB CHEMISTRY METHOD 12/09/2024 12:35 PM EST [facility] Albumin 3.1(L) 3.2 - 5.0 g/dL LAB CHEMISTRY METHOD 12/09/2024 12:35 PM EST [facility] Total Bilirubin 0.4 0.0 - 1.4 mg/dL LAB CHEMISTRY METHOD 12/09/2024 12:35 PM EST [facility] Blood Venous blood specimen / Unknown Venipuncture / Unknown 12/09/2024 5:14 AM EST 12/09/2024 10:52 AM EST Richard Huddleston MD LAB BLOOD ORDERABLES Final Resul t [facility] [address] [place] [address], from Last 3 Months Additional Health Concerns Infection Onset Date Last Indicated Influenza 12/19/2024 12/19/2024 Insurance MEDICA[place] - [place] MEDICARE Care Teams Fire Prevention Inspector Relationship Specialty Start Date End Date Manuela Brink MD [address] [place] [phone] PCP - General Internal Medicine 09/19/24
[2024-12-26 04:00] VITALS: BP 152/81; PULSE 89; RESP 18; TEMP 36.4; O2SAT 99
--- NOTE | 2024-12-26 07:00 | CA_ITS ---
Transthoracic Echocardiogram Patient (Last, First, Middle): DavontesandyMarch, Gender: Female Date of : 1940 Age: 84 Procedure Date: 12/26/2024 Procedure Type: Transthoracic Echocardiogram [place] [facility] Height: 162.56 cm Weight: 95.26 kg BSA: 2.00 m2 Heart Rate: 74 bpm BP: 156 / 79 mmHg Coverage Specialist Rn: BERLIN Referring MD: Jag Ward MD Symptoms: cva Study Quality: Adequate w contrast ECG Rhythm: Atrial Fibrillation Conclusions: - The left ventricular systolic function is normal. The visually estimated ejection fraction is between 65-70%. - There is severe septal asymmetric hypertrophy. - There is moderate mitral annular calcification. - There is moderate tricuspid valve regurgitation. - Mild pulmonary hypertension is present. Findings Procedure Information Contrast agent, definity, is being given per protocol without apparent complications. Left Ventricle Normal left ventricular cavity size. The left ventricular systolic function is normal. The visually estimated ejection fraction is between 65-70%. There is no evidence of regional wall motion abnormalities. Diastolic function is indeterminate on the basis of available data. There is severe septal asymmetric hypertrophy. Right Ventricle Mildly increased right ventricular cavity size. There is mildly decreased right ventricular systolic function. Atria The left atrium is mildly dilated. The right atrium was not well visualized. Aortic Valve There is a normal trileaflet aortic valve. There is no aortic valve stenosis. There is no aortic valve regurgitation. Mitral Valve There is moderate mitral annular calcification. There is trace mitral valve regurgitation. There is no mitral valve stenosis. Pulmonic Valve The pulmonic valve is likely normal. Tricuspid Valve Normal tricuspid valve structure. There is moderate tricuspid valve regurgitation. Mild pulmonary hypertension is present. Great Vessels The asc aorta is normal in size. Small plaque is seen in the sinuses of Valsalva. Venous The inferior vena cava is normal in size and collapses greater than 50% with inspiration. Pericardium/Pleural There is no evidence of pericardial effusion. Prior Study Comparison No prior study available for comparison. Measurements 2D Linear Measurements IVSd: 1.55 0.6-0.9/0.6-1.0 cm LVIDd: 3.62 3.9-5.3/4.2-5.9 cm LVIDd Index: 1.81 2.4-3.2/2.2-3.1 cm/m2 LVIDs: 2.19 2.0-3.6 cm LVPWd: 1.04 0.7-1.1 cm LA Diam: 4.80 2.7-3.8/3.0-4.0 cm LAIDs Index: 2.40 1.5-2.3 cm/m2 LV Mass: 199.73 67-162/88-224 g LV Mass Index: 99.86 43-95/49-115 g/m2 LVOT Diam: 1.90 3.0+(-)1.3 cm 2D Systolic Function EF 4C: 67.20 >55% EF 2C: 74.00 >55% EF BiP: 70.80 >55% Mitral Valve MV Pk E: 1.07 Aortic Valve AoV Pk Garry: 0.95 AoV Pk Grad: 4.00 ELIZABETH: 2.27 LVOT LVOT Pk Garry: 0.76 LVOT Mn Garry: 0.54 LVOT VTI: 0.15 LVOT Pk Grad: 2.00 LVOT Mn Grad: 1.00 LVOT Diam: 1.90 LVOT Area: 2.84 Diastolic Function MV Pk E: 1.07 Right Ventricle TAPSE (mm): 16.30 TVS' Garry: 10.00 Tricuspid Valve TR Pk Garry: 2.69 TR Pk Grad: 29.00 RA Press: 8.00 RVSP: 37.00 Great Vessels Aorta Sinus of Valsalva: 2.90 2.0-3.5 cm Ao Asc: 3.80 2.1-3.4 cm Pulmonary Valve PV Pk Garry: 0.87 Peak PV Grad: 3.00 Updated in Other Vendor System with Status of Final Power Cooper MD electronically signed on 12/26/2024 11:37:32 AM with status of Final
[2024-12-26 07:24] VITALS: BP 156/79; PULSE 97; RESP 18; TEMP 36.9; O2SAT 97
[2024-12-26 07:57] LABS: Glucose, Whole Blood 133 mg/dL (60-115)
[2024-12-26] MEDS: levETIRAcetam 750 MG in 0.9 % Sodium Chloride 100 ML 430 MG IV (08:28)
--- NOTE | 2024-12-26 08:28 | PC.NURSE ---
Keppra IV given late ,, med no t available at the scheduled time from the pharmacy , DR Ward was notifed
[2024-12-26] MEDS: Enoxaparin Sodium 100 MG/ML SYRINGE 90 MG SUBCUT (08:56)
--- NOTE | 2024-12-26 09:08 | MHC.CM.PN ---
Patient is postictal; CM spoke with Daughter/HCP/Marianne @ [phone] and addressed IMM with her (original has been emailed to [email or web address] and a copy has been placed on the chart). Patient is a LTC Resident and [facility] bed hold @ [facility] and returning there is the goal at time of dc. CM has initiated and will follow for dc planning. has asked [facility] to fax the HCP to CM. Patient uses a walker to assist with mobility.
[2024-12-26 09:40] LABS: Hematocrit 46.5 % (37.0-47.0); Hemoglobin 15.3 g/dl (12.0-16.0); Mean Corpuscular HGB Conc 32.9 g/dl (31.0-35.0); Mean Corpuscular Hemoglobin 28.9 pg (27.0-33.0); Mean Corpuscular Volume 87.7 fL (80.0-98.0); Mean Platelet Volume 9.8 fL (9.4-12.3); Platelet Count 162 X10*3/uL (160-400); Red Cell Distribution Width 13.3 % (11.0-16.0)
[2024-12-26 09:55] LABS: Anion Gap 13 (12-20); Blood Urea Nitrogen 13 mg/dL (9-16); Calcium 9.9 mg/dL (8.4-10.2); Carbon Dioxide 25 mmol/L (22-29); Chloride 107 mmol/L (96-108); Cholesterol 168 mg/dL (<200); Creatinine Clr Calc Pharmacy 38.7; Estimated Glomerular Filt Rate 43; Glucose Random 109 mg/dL (60-115); HDL Cholesterol 59 mg/dL (>40); LDL Cholesterol Calculated 95 mg/dL (<100); Potassium 3.8 mmol/L (3.3-5.1); Sodium 141 mmol/L (135-145); Triglycerides 74 mg/dL (<150)
--- NOTE | 2024-12-26 09:56 | P.PNIM_ITS ---
Subjective Subjective Date of Service: 12/26/24 Interval History: feeling better Physical Exam 2 Vital Signs: Vital Signs: Last Vital Signs Temp 98.5 F 12/26/24 07:24 Pulse 97 12/26/24 07:24 Resp 18 12/26/24 07:24 BP 156/79 H 12/26/24 07:24 Pulse Ox 97 12/26/24 07:24 O2 Del Method Nasal Cannula 12/26/24 07:24 O2 Flow Rate 2 12/26/24 07:24 BMI result Body Mass Index 36.1 hard of hearing, ao times 3, no acute distress, no obvious focal deficit, expressive aphasia Objective Data Active Medications Acetaminophen (Acetaminophen 325 Mg Tablet) 650 mg PO Q6H PRN PRN Reason: Pain, Mild 1-3,fever,headache Amlodipine Besylate (Amlodipine Besylate 10 Mg Tablet) 10 mg PO DAILY [facility]; Protocol Apixaban (Apixaban 2.5 Mg Tablet) 2.5 mg PO BID [facility] Calcium Carbonate (Calcium Carbonate 750 Mg Tab.Chew) 750 mg PO Q4H PRN PRN Reason: Heartburn Guaifenesin (Guaifenesin 200 Mg/10 Ml 10 Ml Liquid) 10 ml PO Q4H PRN PRN Reason: Congestion Levetiracetam 750 mg/ Sodium (Chloride) 107.5 mls @ 430 mls/hr IV Q12H [facility] Last Infusion: 12/26/24 08:56 Dose: Infused Documented By: PRO Magnesium Hydroxide (Milk Of Magnesia 30 Ml Oral.Susp) 30 ml PO DAILY PRN PRN Reason: Constipation Melatonin (Melatonin 3 Mg Tablet) 6 mg PO BEDTIME PRN PRN Reason: Insomnia Metoprolol Tartrate (Metoprolol Tartrate 25 Mg Tablet) 25 mg PO BID [facility]; Protocol Labs 12/26/24 09:06 12/26/24 09:06 Labs: Laboratory Results - last 24 hr 12/25/24 12/25/24 12/25/24 15:48 15:55 15:57 MCV 88.9 MCH 28.7 MCHC 32.2 RDW 13.5 Plt Count 167 MPV 10.2 Immature Gran % (Auto) 0.7 H Neut % (Auto) 45.9 Lymph % (Auto) 38.8 Braxton % (Auto) 10.7 Eos % (Auto) 3.7 Baso % (Auto) 0.2 Lymph # (Auto) 1.7 Braxton # (Auto) 0.5 Eos # (Auto) 0.2 Baso # (Auto) 0.0 Abs Immat Gran (auto) 0.03 Absolute Neuts (auto) 2.0 Absolute Nucleated RBC 0.000 Nucleated RBC % (auto) 0.0 Hold Purple Top SEE NOTE PT Whole Blood PT 15.3 H INR Whole Blood INR 1.3 H APTT Anion Gap 11 L Estim Creat Clear Calc 31.5 Estimated GFR 34 POC Glucose 133 H Random Glucose 143 H Calcium 9.9 Triglycerides 110 Cholesterol 168 LDL Cholesterol, Calc 92 HDL Cholesterol 54 12/25/24 12/26/24 16:30 09:06 MCV 87.7 MCH 28.9 MCHC 32.9 RDW 13.3 Plt Count 162 MPV 9.8 Immature Gran % (Auto) Neut % (Auto) Lymph % (Auto) Braxton % (Auto) Eos % (Auto) Baso % (Auto) Lymph # (Auto) Braxton # (Auto) Eos # (Auto) Baso # (Auto) Abs Immat Gran (auto) Absolute Neuts (auto) Absolute Nucleated RBC 0.000 Nucleated RBC % (auto) 0.0 Hold Purple Top PT 13.9 H Whole Blood PT INR 1.2 H Whole Blood INR APTT 32.3 Anion Gap 13 Estim Creat Clear Calc 38.7 Estimated GFR 43 POC Glucose Random Glucose 109 Calcium 9.9 Triglycerides 74 Cholesterol 168 LDL Cholesterol, Calc 95 HDL Cholesterol 59 Assessment and Plan (1) Seizure: Status: Acute Plan 84F PMH multiple CVAs, multiple CVAs, CKD 3, paroxysmal AFib, hypertension presented from retirement with right-sided weakness Right-sided weakness 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 check MRI, neuro, Eliquis, 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
--- NOTE | 2024-12-26 10:35 | PM.NEUROCN ---
History of Present Illness Data of Consult Service Date: 12/26/24 Primary Care Provider: Manuela Brink MD [facility] Reason for consult: RIGHT-SIDED WEAKNESS AND DIFFICULTY SPEAKING 84 YEARS OLD WOMAN WITH PREVIOUS HISTORY OF STROKE WAS BROUGHT TO HOSPITAL WITH SUSPECTED STROKE-LIKE SYMPTOMS BUT OVERALL DESCRIPTION WAS MORE SUGGESTIVE OF A SEIZURE AND SHE WAS NOT CONSIDERED A CANDIDATE FOR ACUTE STROKE TREATMENT. SHE COULD NOT PROVIDE MEANINGFUL HISTORY AT EMERGENCY ROOM. SHE WAS HAVING RIGHT-SIDED WEAKNESS AND DIFFICULTY SPEAKING. NEXT MORNING OR SYMPTOMS WERE RESOLVED. Review of Systems Review of Systems: NO RECENT HEADACHE OR COLD OR FLU-LIKE SYMPTOMS PMFSH Past Medical History Medical History (Updated 12/26/24 @ 09:56 by Jag Ward MD) Seizure Cerebrovascular accident Social History Social History Household Members: Unknown / Unable to assess Housing: Unknown / Unable to assess Patient Tobacco Use Status: Tobacco use Unknown service: No Meds Allergies Allergy/AdvReac Type Severity Reaction Status Date / Time No Known Allergies Allergy Verified 12/25/24 17:08 Active Medications: Current Medications Acetaminophen (Acetaminophen 325 Mg Tablet) 650 mg PO Q6H PRN PRN Reason: Pain, Mild 1-3,fever,headache Amlodipine Besylate (Amlodipine Besylate 10 Mg Tablet) 10 mg PO DAILY [facility]; Protocol Apixaban (Apixaban 2.5 Mg Tablet) 2.5 mg PO BID [facility] Calcium Carbonate (Calcium Carbonate 750 Mg Tab.Chew) 750 mg PO Q4H PRN PRN Reason: Heartburn Guaifenesin (Guaifenesin 200 Mg/10 Ml 10 Ml Liquid) 10 ml PO Q4H PRN PRN Reason: Congestion Levetiracetam 750 mg/ Sodium (Chloride) 107.5 mls @ 430 mls/hr IV Q12H [facility] Last Infusion: 12/26/24 08:56 Dose: Infused Magnesium Hydroxide (Milk Of Magnesia 30 Ml Oral.Susp) 30 ml PO DAILY PRN PRN Reason: Constipation Melatonin (Melatonin 3 Mg Tablet) 6 mg PO BEDTIME PRN PRN Reason: Insomnia Metoprolol Tartrate (Metoprolol Tartrate 25 Mg Tablet) 25 mg PO BID [facility]; Protocol Home Medications ?Medication ?Instructions ?Recorded ?Confirmed ?Last Taken ?Type amlodipine 10 mg tablet 10 mg PO DAILY 12/25/24 12/25/24 Unknown History apixaban 2.5 mg tablet (Eliquis) 2.5 mg PO BID 12/25/24 12/25/24 Unknown History clotrimazole 1 % topical cream 1 appl topical BID 12/25/24 12/25/24 Unknown History guaifenesin 100 mg/5 mL oral 100 mg PO Q4H PRN Congestion 12/25/24 12/25/24 Unknown History liquid (Keli-Tussin) metoprolol tartrate 25 mg tablet 25 mg PO BID 12/25/24 12/25/24 Unknown History Physical Exam Vital Signs: Vital Signs: Last Vital Signs Temp 98.5 F 12/26/24 07:24 Pulse 97 12/26/24 07:24 Resp 18 12/26/24 07:24 BP 156/79 H 12/26/24 07:24 Pulse Ox 97 12/26/24 07:24 O2 Del Method Nasal Cannula 12/26/24 07:24 O2 Flow Rate 2 12/26/24 07:24 BMI result Body Mass Index 36.1 Neuro: Other: SHE IS ALERT AND AWAKE WITH SIGNIFICANT HEARING IMPAIRMENT. SHE ALSO SEEM TO HAVE PROBLEM WITH COMPREHENSION. SHE WAS ABLE TO REPEAT SIMPLE WORDS. SOMETIME HER ANSWERED DID NOT MAKE SENSE. SHE HAS RIGHT HEMIANOPSIA. OTHERWISE THERE WAS NO FOCAL ARM OR LEG WEAKNESS. FACE WAS SYMMETRICAL. Results Labs 12/26/24 09:06 12/26/24 09:06 Labs: Short CBC 12/25/24 12/26/24 Range/Units 15:57 09:06 WBC 4.3 L 4.0 L (4.8-10.8) X10*3/uL Hgb 14.7 15.3 (12.0-16.0) g/dl Hct 45.6 46.5 (37.0-47.0) % Plt Count 167 162 (160-400) X10*3/uL BMP 12/25/24 12/26/24 15:57 09:06 Sodium 139 141 Potassium 4.3 3.8 Chloride 107 107 Carbon Dioxide 25 25 BUN 18 H 13 Creatinine 1.46 H 1.19 [address] REVEALED A LARGE LEFT CORTICAL PARIETO-OCCIPITAL CHRONIC ISCHEMIC INFARCTION AND A SIMILAR RIGHT FRONTAL SMALLER ISCHEMIC INFARCTION AND CEREBRAL ATROPHY. EKG REVEALED ATRIAL FIBRILLATION. CTA REVEALED MULTIPLE AREAS OF INTRACRANIAL STENOSIS. Assessment and Plan (1) Seizure: Status: Acute 84 YEARS OLD WOMAN WITH ATRIAL FIBRILLATION AND MULTIPLE AREAS OF INTRACRANIAL ATHEROSCLEROTIC STENOTIC LESIONS, CHRONIC LARGE LEFT PARIETO-OCCIPITAL ISCHEMIC INFARCTION, SMALLER RIGHT FRONTAL ISCHEMIC INFARCTION, WHO PROBABLY HAD A SEIZURE. MY RECOMMENDATION IS TO CONTINUE ANTICOAGULATION FOR STROKE PREVENTION, ADD A BABY ASPIRIN EITHER DAILY OR COUPLE OF TIMES A WEEK, AND ADD LEVETIRACETAM 500 MG TWICE A DAY. Procedures Date of Service Date of Service: 12/26/24
[2024-12-26 10:49] VITALS: BP 146/80; PULSE 80; RESP 16; TEMP 36.4; O2SAT 98
--- NOTE | 2024-12-26 13:36 | MHC.SL.SWA ---
Speech Pathologist Impression: Risk of Aspiration Due to: Neurological Condition Dysphasia Diet Status: Liquid Consistency and Strategies for Safe Swallow: Liquid Intake Recommendation: Thin Liquid Intake Strategies: Small Sips Solid Food Consistency: Dietary Recommendations: Grnd/Mech Altered (NDD2) Additional Modifications to Solid Foods: Alternate with liquids, oral check for pocketed food, cue patient to cease speaking when eating/food in mouth. Patient requires 1-1 feeding. Oral Medication Intake: Whole with Puree Please contact the pharmacy regarding appropriate crushable or liquid drug formulations that are available whenever modified delivery is recommended. Compensatory Strategies and Precautions to be Taken for Safe Swallow: Sitting Upright (90 deg) Liquids from Cup Liquids from Straw Small Bites and Sips Alternate Liquids/Solids Oral Check Supervision While Eating and Drinking for Safe Swallow: Total Assistance (1:1) Foods to Avoid: Difficult to chew solids, mixed consistencies. Swallowing Recommended Treatments: Compens. Strategy Educat. Recommendation for Speech: Inpatient Speech Therapy Comment: Patient presents with mild to moderate oral phase dysphagia due to high level of confusion, impulsivity, poor oral management of more advanced textures. Patient is confused, disoriented, verbally perseverative, however speech is articulate/no evidence of dysarthria. Recommend UPGRADE/START diet of Ground/Mechanical (NDD2) with THIN liquids, pills whole in puree. Patient requires 1-1 feeding, orientation to meal, cuing to cease speaking when eating, monitor for pocketing food. MD/RD notified of recommended diet, RN, EARRINGS FABRICATOR in person. EARRINGS FABRICATOR assisted at lunch when patient appeared to be choking on meal: with TRIPE SCRAPER present, patient oriented to meal, motivated to eat, tolerated ground food well (no coughing/signs of aspiration). Frequency/Duration: Date Range for Service Req: Timeline to reassess: Digital Marketing Strategist Clinican/Clinical Fellow: No Supervisory Statement: I have reviewed and agree with the student/clinical fellow's documentation: N/A Speech Language Pathologist: Bere Kumar M.A., CCC-TRIPE SCRAPER
--- NOTE | 2024-12-26 14:55 | PC.NURSE ---
pt back from MRI department , kaylynn David clinical technician report : pt refused MRI , pt back to her room Brandi , notified
[2024-12-26 15:26] VITALS: BP 147/79; PULSE 79; RESP 16; TEMP 36.8; O2SAT 100
[2024-12-26 20:00] VITALS: BP 153/81; PULSE 83; RESP 14; TEMP 36.4; O2SAT 99
[2024-12-26] MEDS: Metoprolol Tartrate 25 MG TABLET PO (20:46)
[2024-12-26] MEDS: Apixaban 2.5 MG TABLET PO (20:46)
[2024-12-26] MEDS: levETIRAcetam in NaCl (iso-os) 500 MG/100 ML PIGGYBACK 400 MG IV (20:47)
[2024-12-27] VITALS: BP 128/79; PULSE 89; RESP 18; TEMP 36.6; O2SAT 98
[2024-12-27 03:34] VITALS: BP 147/83; PULSE 78; RESP 18; TEMP 36.9; O2SAT 96
[2024-12-27 06:54] VITALS: BP 126/79; PULSE 98; RESP 18; TEMP 36.2; O2SAT 98
[2024-12-27] MEDS: Metoprolol Tartrate 25 MG TABLET PO (08:19)
[2024-12-27] MEDS: Aspirin Enteric Coated 81 MG TABLET.DR PO (08:19)
[2024-12-27] MEDS: amLODIPine Besylate 10 MG TABLET PO (08:19)
[2024-12-27] MEDS: Apixaban 2.5 MG TABLET PO (08:19)
[2024-12-27] MEDS: levETIRAcetam in NaCl (iso-os) 500 MG/100 ML PIGGYBACK 400 MG IV (08:19)
--- NOTE | 2024-12-27 09:02 | PM.DS ---
DS: Providers Provider Date of Service: 12/27/24 Date of admission: 12/25/24 17:28 Date of discharge: 12/27/24 Primary care physician: Manuela Brink MD Consults: 12/25/24 17:28 Consult to Neurology Routine Consulting Provider: Sherita Hansen Reason for consultation: right sided weaknes,s seizure DS: Diagnosis Discharge Diagnosis (1) Seizure: Status: Acute DS: Summary Hospital Course Hospital Course: from initial hpi: 84F PMH multiple CVAs, multiple CVAs, CKD 3, paroxysmal AFib, hypertension presented from care home with right-sided weakness. History is taken from ER as patient is postictal. Per report patient was last known well at 12:00 on day of presentation at baseline is alert and oriented and ambulatory. Patient was found to be weak with expressive aphasia and right hemiparesis, stroke alert was called. CTA of the head did not show any acute infarct. In ED patient started to have seizure and was given Ativan and Keppra. hospital course: Patient was admitted for right-sided weakness. This was likely seizure with Harjit's paralysis, acute CVA also on differential. Patient was unable to tolerate MRI. Was seen by Neurology who recommended starting Keppra 500 mg b.i.d., continuing Eliquis and adding baby aspirin. As LDL less than 100 and given patient's advanced age unlikely to benefit from statin. Was seen by physical therapy recommended continuing PT at [facility]. For CKD 3 remained stable. For paroxysmal AFib continued on Eliquis and metoprolol. For hypertension continued on amlodipine. patient noted to have one episode of asymptomatic 3.5s pause while sleeping, metoprolol will be decreased to 12.5mg bid. Patient has right-sided weakness has resolved and will be discharged home. Time Attestation Discharge Coordination Time (in mins): 37 Quality: Safe Use of Opioids Does Pt have an Active Cancer Diagnosis on the Problem List?: No Quality: Stroke Does the patient have a stroke diagnosis?: Yes Reason for No Anti-thrombotic at DC: N/A - Med Ordered Reason for No Anticoagulant at DC: N/A - Med Ordered Reason Not Initiating IV-Tpa: Drug treatment not indicated Reason for No Anti-thrombotic by Day Two: N/A - Med Ordered Reason for No Statin at DC: Not indicated Physical Exam Vital Signs: Vital Signs: Last Vital Signs Temp 97.2 F 12/27/24 06:54 Pulse 98 12/27/24 06:54 Resp 18 12/27/24 06:54 BP 126/79 12/27/24 06:54 Pulse Ox 98 12/27/24 06:54 O2 Del Method Nasal Cannula 12/27/24 06:54 O2 Flow Rate 2 12/27/24 06:54 BMI result Body Mass Index 36.1 General: AO X 3, no acute distress, hard of hearing Resp: CTA bilateral, no accessory muscles used CVS: S1,S2,RRR GI: soft, non tender, non distended Neuro: motor grossly intact, alert Psych: appropriate affect, appropriate insight DS: Data Data Completed and Pending Labs on day of discharge: Laboratory Results - last 24 hr 12/26/24 09:06 WBC 4.0 L RBC 5.30 Hgb 15.3 Hct 46.5 MCV 87.7 MCH 28.9 MCHC 32.9 RDW 13.3 Plt Count 162 MPV 9.8 Absolute Nucleated RBC 0.000 Nucleated RBC % (auto) 0.0 Sodium 141 Potassium 3.8 Chloride 107 Carbon Dioxide 25 Anion Gap 13 BUN 13 Creatinine 1.19 Estim Creat Clear Calc 38.7 Estimated GFR 43 Random Glucose 109 Calcium 9.9 Triglycerides 74 Cholesterol 168 LDL Cholesterol, Calc 95 HDL Cholesterol 59 Discharge Plan Discharge Anticipated Discharge Date/Time: 12/27/24 09:00 Patient Disposition: Xfer [facility] Discharge Diagnosis: seizure, possible cva Referrals: [facility] [Outside] - 1 Week Manuela Brink MD [Primary Care Provider] - 1 Week Sherita Hansen MD [Physician] - 1 Week Discharge Medications: New aspirin 81 mg Tablet,Delayed Release (Dr/Ec) 81 mg PO DAILY Qty: 90 0RF levetiracetam [Keppra] 500 mg tablet 500 mg PO BID Qty: 180 0RF Continued amlodipine 10 mg tablet 10 mg PO DAILY Eliquis 2.5 mg tablet 2.5 mg PO BID guaifenesin [Keli-Tussin] 100 mg/5 mL Liquid 100 mg PO Q4H PRN (Reason: Congestion) clotrimazole 1 % Cream 1 appl TOPICAL BID Changed metoprolol tartrate 25 mg tablet 12.5 mg PO BID Qty: 7 0RF Rx Instructions: HOLD FOR SBP<100 AND/OR PULSE <60 Discharge Orders: Discharge Order (Routine); Ordered 12/27/24 Ordered By: Jag Ward Diet: NDD2 solids, thin liq Activity on Discharge: As tolerated Stand Alone Forms: Patient Portal Discharge page Print Language: Syriac Care Plan Goals: avoid seizures Health Concerns: seziure Plan of Treatment: starting on keppra, asa 81mg daily added to prevent stroke, home PT/OT Assessment: see above
--- NOTE | 2024-12-27 09:05 | P.F2F_ITS ---
Service Date Service Date: 12/27/24 Encounter Date of encounter: 12/27/24 Reasons for Services Signs and symptoms assessed: History of multiple CVA, seizure with right-sided weakness Reason for physical therapy: home safety and mobility, therapeutic exercises and gait/transfer training Homebound: Leaving the home is medically contraindicated at this time without the asist of a device and/or another person due th the listed conditions above and below. Reason homebound: unsteady gait / fall risk Certification: Based on the above findings, I certify that this patient is confined to the home and needs intermittent long-term care, physical therapy and/or speech therapy, or continues to need occupational therapy. The patient is under my care, and I have initiated the establishment of the plan of care. The patient will be followed by a physician who will periodically review the plan of care. Time Spent With Patient Time: Total time managing care of this patient today ____ minutes.
--- NOTE | 2024-12-27 10:13 | MHC.CM.PN ---
Patient is medically cleared for dc to LTC today. Patient will return to LTC @ [facility] today at 1:30 PM, via [facility]. LAWRENCE spoke with Daughter/HCP/Marianne @ [phone] and informed her of the dc plan. LAWRENCE has asked MD Cowan to call Daughter to address specific questions.
[2024-12-27 10:46] VITALS: BP 112/66; PULSE 75; RESP 16; TEMP 36.9; O2SAT 97
--- NOTE | 2024-12-27 11:44 | MHC.SL.SWA ---
Speech Pathologist Impression: Oral Phase Dysphagia, Risk of Aspiration Risk of Aspiration Due to: Neurological Condition Dysphasia Diet Status: Continue on GROUND/MECH ALTERED (NDD2) and THIN Liquid Consistency and Strategies for Safe Swallow: Liquid Intake Recommendation: Thin Liquid Intake Strategies: Small Sips Solid Food Consistency: Dietary Recommendations: Grnd/Mech Altered (NDD2) Additional Modifications to Solid Foods: Alternate with liquids, oral check for pocketed food, cue patient to cease speaking when eating/food in mouth. Patient requires 1-1 feeding. Oral Medication Intake: Whole with Puree Please contact the pharmacy regarding appropriate crushable or liquid drug formulations that are available whenever modified delivery is recommended. Compensatory Strategies and Precautions to be Taken for Safe Swallow: Sitting Upright (90 deg) Small Bites and Sips Alternate Liquids/Solids Rate of Ingestion Change Supervision While Eating and Drinking for Safe Swallow: Total Assistance (1:1) Foods to Avoid: Difficult to chew solids, mixed consistencies. Swallowing Recommended Treatments: Compens. Strategy Educat. Recommendation for Speech: Per RN pt to d/c at 1:30pm to [facility]. Recommend continue modified diet and 1:1 feeding at SNF. Comment: Patient presents with mild to moderate oral phase dysphagia due to high level of confusion, impulsivity, poor oral management of more advanced textures. Patient is confused, disoriented, verbally perseverative, however speech is articulate/no evidence of dysarthria. Recommend UPGRADE/START diet of Ground/Mechanical (NDD2) with THIN liquids, pills whole in puree. Patient requires 1-1 feeding, orientation to meal, cuing to cease speaking when eating, monitor for pocketing food. Cement Despatch Operator Clinican/Clinical Fellow: Yes: Juliana Henning Supervisory Statement: I have reviewed and agree with the student/clinical fellow's documentation: Yes Speech Language Pathologist: Antonia Castro M.A., CCC-FILM SOUND ENGINEER
--- NOTE | 2024-12-27 12:43 | PC.NURSE ---
11#0 am pt resting in bed and taking a nap , cardiac technologist cardiac pause 3.1 seconds, no symptoms. DR Ward was notified ,metoprolol dose decreased , per MD pt is cleared to be discharged to skilled nursing today
== END 2024-12-27 14:05 | DRG 65 ==
LOC: HO.ED 17:26 → HO.EDOVER 17:35 → HO.IMC 19:12
PROVIDERS: Admitting Provider Internal Medicine; Emergency Provider Emergency Medicine Emergency Medical Services; PCP Internal Medicine; Visit Provider Internal Medicine
DX: I63.9 Cerebral infarction, unspecified (principal); G81.91 Hemiplegia, unspecified affecting right dominant side; R56.9 Unspecified convulsions; R47.01 Aphasia; G83.84 Todd's paralysis (postepileptic); R29.710 NIHSS score 10; I48.0 Paroxysmal atrial fibrillation; Z66 Do not resuscitate; I12.9 Hypertensive chronic kidney disease with stage 1 through stage 4 chronic kidney disease, or unspecified chronic kidney disease; N18.30 Chronic kidney disease, stage 3 unspecified; Z79.01 Long term (current) use of anticoagulants; Z79.899 Other long term (current) drug therapy
CPT/HCPCS: 36415; 70450; 70496; 70498; 80048; 80061; 82947; 84484; 85025; 85027; 85610; 85730; 92526; 92610; 93005; 93306; 97162; 97166; 99285; J1650; J1953; J2060; Q9957; Q9967

== ENCOUNTER → 2024-12-25 15:50 | Outpatient (BNV) | payer MEDICARE, SELFPAY | PROVIDERS: Admitting Provider Internal Medicine; Emergency Provider Emergency Medicine Emergency Medical Services; PCP Internal Medicine; Visit Provider Internal Medicine | DX: I48.91 Unspecified atrial fibrillation (principal); R94.31 Abnormal electrocardiogram [ECG] [EKG] | CPT/HCPCS: 93010 ==

== ENCOUNTER → 2024-12-25 15:50 | Outpatient (BNV) | payer MEDICARE, MEDICAID, SELFPAY | PROVIDERS: Emergency Provider Emergency Medicine Emergency Medical Services; Visit Provider Radiology Diagnostic Radiology | DX: I63.9 Cerebral infarction, unspecified (principal) | CPT/HCPCS: 70450; 70496; 70498 ==

== ENCOUNTER 2024-12-25 17:28 | Outpatient (BNV) | payer MEDICARE, SELFPAY | END 2024-12-26 07:00 | PROVIDERS: Admitting Provider Internal Medicine; Emergency Provider Emergency Medicine Emergency Medical Services; PCP Internal Medicine; Visit Provider Internal Medicine | DX: I42.2 Other hypertrophic cardiomyopathy (principal); I34.81 Nonrheumatic mitral (valve) annulus calcification; I36.1 Nonrheumatic tricuspid (valve) insufficiency; I27.20 Pulmonary hypertension, unspecified | CPT/HCPCS: 93306 ==

== ENCOUNTER → 2024-12-25 17:28 | Outpatient (BNV) | payer MEDICARE, MEDICAID, SELFPAY | PROVIDERS: Admitting Provider Internal Medicine; Emergency Provider Emergency Medicine Emergency Medical Services; PCP Internal Medicine; Visit Provider Internal Medicine | DX: R56.9 Unspecified convulsions (principal) | CPT/HCPCS: 99222; 99232 ==

== ENCOUNTER → 2024-12-25 17:28 | Outpatient (BNV) | payer MEDICARE, SELFPAY | PROVIDERS: Admitting Provider Internal Medicine; Emergency Provider Emergency Medicine Emergency Medical Services; PCP Internal Medicine; Visit Provider Psychiatry & Neurology Neurology | DX: I67.2 Cerebral atherosclerosis (principal); I67.82 Cerebral ischemia | CPT/HCPCS: 99222 ==

== ENCOUNTER 2025-01-20 12:49 | Outpatient (REF) | payer MEDICARE, SELFPAY ==
--- OUTSIDE RECORDS SUMMARY | 2025-01-20 15:09 | XMS_ITS | Patient Health Record ---
Author Organization LI MARTIN MD Address [address] [place] [address] Care Team Providers Care Sand Sifter Name Role Phone LI MARTIN Primary Care Provider ALLERGIES No Known Allergies REASON FOR REFERRAL Reason ectropian Diagnosis 1 Unspecified entropio n of left lower eyelid (H02.005) Referral Organization LI MARTIN MD Referring Provider First Name LI Referring Provider Last Name VERONICA Referring Provider Speciality Internal M edicine Referred Organization [facility] er Referred Address [address], [place],[address], Referred Provider Specialty Ophthalmolog y Referral Priority [...] day Active Erythromycin 2 % 1 application Wall Attendant ally Twice a day for 21 days [...] disease (E11.22) 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) Problem 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) Active confirmed Entropion (54270732) Problem 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) Active confirmed Cerebral infarction due to carotid artery occlusion (673779849597126 ) Problem Longstanding persistent atrial fibrillation (I48.11) Active confirmed Longstanding persistent atrial fibrillation (916469965) Problem Body mass index [BMI] 35.0-35.9, adult (Z68.35) Active confirmed Obese class I I (709135105584529 ) Problem Hypertension, unspecified type (I10) Active confirmed Essential hypertension (94544982) Problem Anticoagulated by anticoagulation treatment (Z79.01) Active confirmed Long-term current use of anticoagulant (889490171) Problem Chronic renal failure, stage 3 (moderate), unspecified whether stage 3a or 3b CKD (N18.30) Active confirmed Chronic k idney disease stage 3 (disorder) (941639826) Problem Low back pain, unspecified (M54.50) Active confirmed Low back pain (322343580) VITAL SIGNS Heart Rate 74 /min 06/18/2024 [...] Temperature 98.3 degrees Fahrenheit 06/18/[address] [facility] 06/16/24. 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 [...] Date Medicare [address] [place] [phone] [id number] March Self - patient is the insured [facility] Medicaid [address] [place] [address] [id number] March Self - patient is the insured MEDICAL (GENERAL) HISTORY Surgical History Surgery Date(Month/Year) Hysterectomy Hospitalization History Reason Date(Month/Year) February 2024 for 4 days subseque ntly in a skilled nursing for a cerebral infarct
--- OUTSIDE RECORDS SUMMARY | 2025-01-20 15:09 | XMS_ITS | Encounter Summary ---
Author Organization [facility] Address [address] [place] [address] Care Team Providers Care Mica Parts Sprayer Name Role Phone Manuela Brink MD Primary Care Provider [phone] Encounter Details Date Type Department Care Team (Late st Contact Info) Description 08/17/2024 Lab Requisition [facility] - Main Lab 299 [facility] [place] [address] Manuela Brink MD [address] [place] [address] Essential (primary) hypertension Social History Tobacco Use [...] Travel phlebotomy fee (08/19/2024 5:04 AM EST) [facility] TRAVEL PHLEBOTOMY FEE Completed 08/19/2024 10:01 AM EST [facility] Blood Venous blood specimen / Unknown Venipuncture / Unknown 08/19/2024 5:04 AM EST 08/19/2024 9:49 AM EST us Manuela Brink MD LAB BLOOD ORDERABLES Final Res ult [facility] [address] [place] [address], [place] [phone] * (ABNORMAL) Basic metabolic panel (08/19/2024 5:04 AM EST) Sodium 142 133 - 145 mmol/L LAB CHEMISTRY METHOD 08/19/2024 10:58 AM [facility] Potassium 4.3 3.5 - 5.5 mmol/L LAB CHEMISTRY METHOD 08/19/2024 10:58 AM [facility] Chloride 108 96 - 110 mmol/L LAB CHEMISTRY METHOD 08/19/2024 10:58 AM [facility] CO2 29 21 - 32 mmol/L LAB CHEMISTRY METHOD 08/19/2024 10:58 AM [facility] Anion Gap 5 3 - 11 LAB CHEMISTRY METHOD 08/19/2024 10:58 AM [facility] Glucose 107(H) 70 - 100 mg/dL LAB CHEMISTRY METHOD 08/19/2024 10:58 AM [facility] BUN 22 5 - 25 mg/dL LAB CHEMISTRY METHOD 08/19/2024 10:58 AM [facility] Creatinine 1.46(H) 0.50 - 1.10 mg/dL LAB CHEMISTRY METHOD 08/19/2024 10:58 AM [facility] eGFR 35(L) >=60 mL/min/1. 73m2 LAB CHEMISTRY METHOD 08/19/2024 10:58 AM [facility] LAB Comment:Calculation based on the??Chronic Kidney Disease Epidemiology Collaboration (CKD-EPI) equation refit??without adjustment for race. BUN/Creatinine Ratio 15.1 LAB CHEMISTRY METHOD 08/19/2024 10:58 AM EST [facility] Calcium 9.9 8.5 - 10.5 mg/dL LAB CHEMISTRY METHOD 08/19/2024 10:58 AM [facility] Blood Venous blood specimen / Unknown Venipuncture / Unknown 08/19/2024 5:04 AM EST 08/19/2024 9:43 AM EST us Manuela Brink MD LAB BLOOD ORDERABLES Final Res ult [facility] [address] [place] [address], [place] [phone] * (ABNORMAL) Complete blood count (08/19/2024 5:04 AM EST) WBC 5.1 4.8 - 10.8 K/mcL LAB HEMETOLOGY METHOD 08/19/2024 10:33 AM [facility] RBC 4.50 3.80 - 4.80 M/mcL LAB HEMETOLOGY METHOD 08/19/2024 10:33 AM [facility] Hemoglobin 12.8 11.5 - 16.0 g/dL LAB HEMETOLOGY METHOD 08/19/2024 10:33 AM [facility] Hematocrit 41.0 35.0 - 47.0 % LAB HEMETOLOGY METHOD 08/19/2024 10:33 AM [facility] MCV 90.7 79.0 - 98.0 FL LAB HEMETOLOGY METHOD 08/19/2024 10:33 AM [facility] MCH 28.3 27.0 - 32.0 pcg LAB HEMETOLOGY METHOD 08/19/2024 10:33 AM [facility] MCHC 31.2(L) 32.0 - 37.0 g/dL LAB HEMETOLOGY METHOD 08/19/2024 10:33 AM [facility] RDW 13.3 11.0 - 15.0 % LAB HEMETOLOGY METHOD 08/19/2024 10:33 AM EST [facility] Platelets 206 130 - 400 K/mcL LAB HEMETOLOGY METHOD 08/19/2024 10:33 AM EST [facility] MPV 11.0 7.0 - 11.0 FL LAB HEMETOLOGY METHOD 08/19/2024 10:33 AM EST [facility] NRBC 0.0 <1.0 % LAB HEMETOLOGY METHOD 08/19/2024 10:33 AM EST [facility] NRBC Absolute 0.00 <0.10 K/mcL LAB HEMETOLOGY METHOD 08/19/2024 10:33 AM [facility] Blood Venous blood specimen / Unknown Venipuncture / Unknown 08/19/2024 5:04 AM EST 08/19/2024 9:43 AM EST us Manuela Brink MD LAB BLOOD ORDERABLES Final Res ult [facility] [address] [place] [address], documented in this encounter Visit Diagnoses Diagnosis Essential (primary) hypertension Unspecified essential hypertension documented in this encounter Additional Health Concerns Infection Onset Date Last Indicated Resolved Time Respiratory Rule-Out 12/19/2024 12/19/2024 025 1:52 PM EST Influenza 12/19/2024 12/19/2024 01/12/2025 7:04 PM EDT documented as of this encounter Care Teams [employer] Sprayer Relationship Specialty Start Date End Date Manuela Brink MD [address] [place] [id number] PCP - General Internal Medicine 09/19/24 documented as of this encounter
--- OUTSIDE RECORDS SUMMARY | 2025-01-20 15:09 | XMS_ITS | Encounter Summary ---
Author Organization [facility] Address [address] [place] [phone] Care Team Providers Care Sizing Sprayer Name Role Phone Manuela Brink MD Primary Care Provider [phone] Encounter Details Date Type Department Care Team (Late st Contact Info) Description 01/01/2025 Lab Requisition [facility] - Main Lab 299 Replaced By [facility] [place] [address] Richard Huddleston MD [address] [place] [address] Hypothyroidism, unspecified Social History Tobacco Use Types Packs/Day [...] Procedure Name Priority Date/Time Associated Diagnosis Comments THYROID STIMULATING HORMONE Routine 01/01/2025 5:51 AM EDT Hypothyroidism, unspecified documented in this encounter Results * (ABNORMAL) Thyroid stimulating hormone (01/01/2025 5:51 AM EDT) TSH 14.96(H) 0.40 - 4.00 mcIU/mL LAB CHEMISTRY METHOD 01/01/2025 12:44 PM EDT [facility] Blood Venous blood specimen / Unknown Venipuncture / Unknown 01/01/2025 5:51 AM EDT 01/01/2025 10:41 AM EDT Richard Huddleston MD LAB BLOOD ORDERABLES [facility] LAB [address] [place] [address], documented in this encounter Visit Diagnoses Diagnosis Hypothyroidism, unspecified documented in this encounter Additional Health Concerns Infection Onset Date Last Indicated Resolved Time Influenza 12/19/2024 12/19/2024 01/12/2025 7:04 PM EDT documented as of this encounter Care Teams Sizing Sprayer Relationship Specialty Start Date End Date Manuela Brink MD [address] [place] [phone] PCP - General Internal Medicine 09/19/24 documented as of this encounter
--- OUTSIDE RECORDS SUMMARY | 2025-01-20 15:09 | XMS_ITS ---
Author Organization LI MARTIN MD Address [address] [place] [address] Care Team Providers Care Gas Station Supervisor Name Role Phone LI MARTIN Primary Care Provider [phone] REASON FOR VISIT needs new RX MEDICATIONS Medication SIG (Take, Route, Frequency, Duration) Notes Start Date End Date Status amLODIPine Besylate 10 MG 1 tablet Orall y Once a day for 90 days Active Encounters Encounter Location Date Provider Diagnosis LI MARTIN MD [address] [place] [phone] 07/16/2024 [facility] MART[facility] PLAN OF TREATMENT Medication Medication Name Sig Start Date Stop Date Notes amLODIPine Besylate 10 MG 1 tablet Orall y Once a day for 90 days Progress Notes * Ana Paula COLINDRESDOB:1940 ([age] yo F)Acc No.[id number]:07/16/2024 Patient:??USHA Ana Paula :1940?Age:84 Y?Sex:Fe male Address:[address] [place] [address] [address] , [address] , [place] [address] * Refills?? Refill amLODIPine Besylate Tablet, 10 MG, Orally, 90 Tablet, 1 tablet, Once a day, 90 days, Refills=3 * true * Date:??
--- OUTSIDE RECORDS SUMMARY | 2025-01-20 15:09 | XMS_ITS | Encounter Summary ---
Author Organization [facility] Address [address] [place] [phone] Care Team Providers Care Swatch Cutter Name Role Phone Manuela Brink MD Primary Care Provider Encounter Details Date Type Department Care Team (Late st Contact Info) Description 12/30/2024 Lab Requisition [facility] - Main Lab 299 [facility] [place] [address] Richard Huddleston MD [address] [place], [place] [id number] Unspecified atrial fibrillation (CMS/HCC); Other seizures (CMS/HCC); Chronic kidney disease, unspecified Social History Tobacco Use Types Packs/Day [...] Associated Diagnosis Comments COMPLETE BLOOD COUNT Routine 12/30/2024 5:31 AM EDT Unspecified atrial fibrillation (CMS/HCC) Other seizures (CMS/HCC) Chronic kidney disease, unspecified THYROID STIMULATING HORMONE Routine 12/30/2024 5:31 AM EDT Unspecified atrial fibrillation (CMS/HCC) Other seizures (CMS/HCC) Chronic kidney disease, unspecified FOLATE Routine 12/30/2024 5:31 AM EDT Unspecified atrial fibrillation (CMS/HCC) Other seizures (CMS/HCC) Chronic kidney disease, unspecified VITAMIN B12 Routine 12/30/2024 5:31 AM EDT Unspecified atrial fibrillation (CMS/HCC) Other seizures (CMS/HCC) Chronic kidney disease, unspecified COMPREHENSIVE METABOLIC PANEL Routine 12/30/2024 5:31 AM EDT Unspecified atrial fibrillation (CMS/HCC) Other seizures (CMS/HCC) Chronic kidney disease, unspecified documented in this encounter Results * (ABNORMAL) Thyroid stimulating hormone (12/30/2024 5:31 AM EDT) [facility] TSH 10.90(H) 0.40 - 4.00 mcIU/mL LAB CHEMISTRY METHOD 12/30/2024 3:16 PM EDT [facility] LAB Blood Venous blood specimen / Unknown Venipuncture / Unknown 12/30/2024 5:31 AM EDT 12/30/2024 11:12 AM EDT us Richard Huddleston MD LAB BLOOD ORDERABLES Final Resul t Performing Organization Address City/[facility]/ZIP Co de Phone Number [facility] LAB [address] [place] [address], [place] [phone] * Folate (12/30/2024 5:31 AM EDT) [facility] Folate 4.5 2.8 - 17.0 ng/ml LAB CHEMISTRY METHOD 12/30/2024 3:33 PM EDT [facility] LAB Blood Venous blood specimen / Unknown Venipuncture / Unknown 12/30/2024 5:31 AM EDT 12/30/2024 11:12 AM EDT us Richard Huddleston MD LAB BLOOD ORDERABLES Final Resul t [facility] [address] [place] [address], [place] [phone] * Vitamin B12 (12/30/2024 5:31 AM EDT) [facility] Vitamin B-12 299 250 - 900 pcg/mL LAB CHEMISTRY METHOD 12/30/2024 3:33 PM EDT [facility] Blood Venous blood specimen / Unknown Venipuncture / Unknown 12/30/2024 5:31 AM EDT 12/30/2024 11:12 AM EDT Richard Huddleston MD LAB BLOOD ORDERABLES Final Resul t [facility] [address] [place] [address], [place] [phone] * (ABNORMAL) Comprehensive metabolic panel (12/30/2024 5:31 AM EDT) [facility] Sodium 137 133 - 145 mmol/L LAB CHEMISTRY METHOD 12/30/2024 3:39 PM [facility] Potassium 3.6 3.5 - 5.5 mmol/L LAB CHEMISTRY METHOD 12/30/2024 3:39 PM [facility] Chloride 104 96 - 110 mmol/L LAB CHEMISTRY METHOD 12/30/2024 3:39 PM [facility] CO2 25 21 - 32 mmol/L LAB CHEMISTRY METHOD 12/30/2024 3:39 PM [facility] Anion Gap 8 3 - 11 LAB CHEMISTRY METHOD 12/30/2024 3:39 PM [facility] Glucose 104(H) 70 - 100 mg/dL LAB CHEMISTRY METHOD 12/30/2024 3:39 PM [facility] BUN 35(H) 5 - 25 mg/dL LAB CHEMISTRY METHOD 12/30/2024 3:39 PM [facility] Creatinine 1.90(H) 0.50 - 1.10 mg/dL LAB CHEMISTRY METHOD 12/30/2024 3:39 PM [facility] LAB eGFR 26(L) >=60 mL/min/1. 73m2 LAB CHEMISTRY METHOD 12/30/2024 3:39 PM EDT [facility] LAB Comment:Calculation based on the??Chronic Kidney Disease Epidemiology Collaboration (CKD-EPI) equation refit??without adjustment for race. BUN/Creatinine Ratio 18.4 LAB CHEMISTRY METHOD 12/30/2024 3:39 PM EDT [facility] Calcium 9.6 8.5 - 10.5 mg/dL LAB CHEMISTRY METHOD 12/30/2024 3:39 PM EDT [facility] AST (SGOT) 19 10 - 42 unit/L LAB CHEMISTRY METHOD 12/30/2024 3:39 PM [facility] ALT (SGPT) 17 10 - 60 unit/L LAB CHEMISTRY METHOD 12/30/2024 3:39 PM EDT [facility] Alkaline Phosphatase 105 42 - 121 unit/L LAB CHEMISTRY METHOD 12/30/2024 3:39 PM EDT [facility] Total Protein 6.7 6.0 - 8.0 g/dL LAB CHEMISTRY METHOD 12/30/2024 3:39 PM EDT [facility] Albumin 3.2 3.2 - 5.0 g/dL LAB CHEMISTRY METHOD 12/30/2024 3:39 PM [facility] Total Bilirubin 0.5 0.0 - 1.4 mg/dL LAB CHEMISTRY METHOD 12/30/2024 3:39 PM EDT [facility] LAB Blood Venous blood specimen / Unknown Venipuncture / Unknown 12/30/2024 5:31 AM EDT 12/30/2024 11:12 AM EDT us Richard Huddleston MD LAB BLOOD ORDERABLES Final Resul t [facility] [address] [place] [address], * (ABNORMAL) Complete blood count (12/30/2024 5:31 AM EDT) Pathologist [facility] WBC 5.6 4.8 - 10.8 K/mcL LAB HEMETOLOGY METHOD 12/30/2024 12:29 PM [facility] RBC 4.80 3.80 - 4.80 M/mcL LAB HEMETOLOGY METHOD 12/30/2024 12:29 PM [facility] Hemoglobin 13.8 11.5 - 16.0 g/dL LAB HEMETOLOGY METHOD 12/30/2024 12:29 PM [facility] Hematocrit 43.5 35.0 - 47.0 % LAB HEMETOLOGY METHOD 12/30/2024 12:29 PM [facility] MCV 91.6 79.0 - 98.0 FL LAB HEMETOLOGY METHOD 12/30/2024 12:29 PM [facility] MCH 29.1 27.0 - 32.0 pcg LAB HEMETOLOGY METHOD 12/30/2024 12:29 PM [facility] MCHC 31.7(L) 32.0 - 37.0 g/dL LAB HEMETOLOGY METHOD 12/30/2024 12:29 PM [facility] RDW 13.6 11.0 - 15.0 % LAB HEMETOLOGY METHOD 12/30/2024 12:29 PM [facility] Platelets 200 130 - 400 K/mcL LAB HEMETOLOGY METHOD 12/30/2024 12:29 PM [facility] MPV 11.3(H) 7.0 - 11.0 FL LAB HEMETOLOGY METHOD 12/30/2024 12:29 PM [facility] NRBC 0.0 <1.0 % LAB HEMETOLOGY METHOD 12/30/2024 12:29 PM [facility] NRBC Absolute 0.00 <0.10 K/mcL LAB HEMETOLOGY METHOD 12/30/2024 12:29 PM EDT [facility] LAB Blood Venous blood specimen / Unknown Venipuncture / Unknown 12/30/2024 5:31 AM EDT 12/30/2024 11:12 AM EDT us Richard Huddleston MD LAB BLOOD ORDERABLES Final Resul t [facility] [address] [place] [address], documented in this encounter Visit Diagnoses Diagnosis Unspecified atrial fibrillation (CMS/HCC) Other seizures (CMS/HCC) Chronic kidney disease, unspecified documented in this encounter Additional Health Concerns Infection Onset Date Last Indicated Resolved Time Influenza 12/19/2024 12/19/2024 01/12/2025 7:04 PM EDT documented as of this encounter Care Teams Swatch Cutter Relationship Specialty Start Date End Date Manuela Brink MD [address] [place] [id number] PCP - General Internal Medicine 09/19/24 documented as of this encounter
--- OUTSIDE RECORDS SUMMARY | 2025-01-20 15:09 | XMS_ITS | Encounter Summary ---
Author Organization [facility] Address [address] [place] [phone] Care Team Providers Care Door Slinger Name Role Phone Manuela Brink MD Primary Care Provider [phone] Encounter Details Date Type Department Care Team (Late st Contact Info) Description 09/18/2024 Lab Requisition [facility] - Main Lab [address] [place] [address] Manuela Brink MD [address] [place] [phone] Other lack of coordination; Chronic kidney disease, [...] LAB HEMETOLOGY METHOD 09/18/2024 12:14 PM EST [facility] RBC 4.00 3.80 - 4.80 M/mcL LAB HEMETOLOGY METHOD 09/18/2024 12:14 PM [facility] Hemoglobin 11.6 11.5 - 16.0 g/dL LAB HEMETOLOGY METHOD 09/18/2024 12:14 PM [facility] Hematocrit 36.9 35.0 - 47.0 % LAB HEMETOLOGY METHOD 09/18/2024 12:14 PM [facility] MCV 91.6 79.0 - 98.0 FL LAB HEMETOLOGY METHOD 09/18/2024 12:14 PM [facility] MCH 28.8 27.0 - 32.0 pcg LAB HEMETOLOGY METHOD 09/18/2024 12:14 PM [facility] MCHC 31.4(L) 32.0 - 37.0 g/dL LAB HEMETOLOGY METHOD 09/18/2024 12:14 PM [facility] RDW 15.4(H) 11.0 - 15.0 % LAB HEMETOLOGY METHOD 09/18/2024 12:14 PM [facility] Platelets 155 130 - 400 K/mcL LAB HEMETOLOGY METHOD 09/18/2024 12:14 PM [facility] MPV 11.0 7.0 - 11.0 FL LAB HEMETOLOGY METHOD 09/18/2024 12:14 PM [facility] NRBC 0.0 <1.0 % LAB HEMETOLOGY METHOD 09/18/2024 12:14 PM [facility] NRBC Absolute 0.00 <0.10 K/mcL LAB HEMETOLOGY METHOD 09/18/2024 12:14 PM [facility] Blood Venous blood specimen / Unknown Venipuncture / Unknown 09/18/2024 7:39 AM EST 09/18/2024 11:32 AM EST Manuela Brink MD LAB BLOOD ORDERABLES Final Res ult [facility] [address] [place] [address], * (ABNORMAL) Basic metabolic panel (09/18/2024 7:39 AM EST) Sodium 141 133 - 145 mmol/L LAB CHEMISTRY METHOD 09/18/2024 1:08 PM [facility] Potassium 4.4 3.5 - 5.5 mmol/L LAB CHEMISTRY METHOD 09/18/2024 1:08 PM [facility] Chloride 110 96 - 110 mmol/L LAB CHEMISTRY METHOD 09/18/2024 1:08 PM [facility] CO2 24 21 - 32 mmol/L LAB CHEMISTRY METHOD 09/18/2024 1:08 PM [facility] Anion Gap 7 3 - 11 LAB CHEMISTRY METHOD 09/18/2024 1:08 PM [facility] Glucose 91 70 - 100 mg/dL LAB CHEMISTRY METHOD 09/18/2024 1:08 PM [facility] BUN 16 5 - 25 mg/dL LAB CHEMISTRY METHOD 09/18/2024 1:08 PM [facility] Creatinine 1.41(H) 0.50 - 1.10 mg/dL LAB CHEMISTRY METHOD 09/18/2024 1:08 PM [facility] eGFR 37(L) >=60 mL/min/1. 73m2 LAB CHEMISTRY METHOD 09/18/2024 1:08 PM [facility] LAB Comment:Calculation based on the??Chronic Kidney Disease Epidemiology Collaboration (CKD-EPI) equation refit??without adjustment for race. BUN/Creatinine Ratio 11.3 LAB CHEMISTRY METHOD 09/18/2024 1:08 PM [facility] Calcium 9.7 8.5 - 10.5 mg/dL LAB CHEMISTRY METHOD 09/18/2024 1:08 PM EST [facility] Blood Venous blood specimen / Unknown Venipuncture / Unknown 09/18/2024 7:39 AM EST 09/18/2024 11:34 AM EST Manuela Brink MD LAB BLOOD ORDERABLES Final Res ult [facility] [address] [place] [address], documented in this encounter Visit Diagnoses Diagnosis Other lack of coordination Chronic kidney disease, unspecified Encephalopathy, unspecified documented in this encounter Additional Health Concerns Infection Onset Date Last Indicated Resolved Time Respiratory Rule-Out 12/19/2024 12/19/2024 025 1:52 PM EST Influenza 12/19/2024 12/19/2024 01/12/2025 7:04 PM EDT documented as of this encounter Care Teams Door Slinger Relationship Specialty Start Date End Date Manuela Brink MD [address] [place] [phone] PCP - General Internal Medicine 09/19/24 documented as of this encounter
--- OUTSIDE RECORDS SUMMARY | 2025-01-20 15:09 | XMS_ITS ---
Author Organization THOR MARTIN MD Address [address] [address] Care Team Providers Care Insurance Claims Processor Name Role Phone THOR MARTIN Primary Care Provider REASON FOR VISIT wellness Encounters Encounter Location Date Provider Diagnosis THOR MARTIN MD [address] [phone] 08/01/2024 THOR MARTIN PLAN OF TREATMENT No Information Progress Notes * Ana Paula KERRDOB:1940 ([age] yo F)Acc No.[id number]:08/01/2024 Progress Notes Patient:??Ana Paula KERR Provider:??Thor Martin MD :1940?Age:84 Y?Sex:Fe male Date:08/01/2024 Address:[address] [place] [address], [address] [place], [place] [id number] Subjective: * Chief Complaints: * ?1. Wellness. * Medical History:?? Objective: Assessment: Plan: * Treatment: * Billing Information: * Visit Code:?? * Procedure Codes:?? * Sign off status: Pending * Provider:??Thor Martin MD Date:??2023
--- OUTSIDE RECORDS SUMMARY | 2025-01-20 15:09 | XMS_ITS | Encounter Summary ---
Author Organization [facility] Address [address] [place] [phone] Care Team Providers Care Mri Technologist Name Role Phone Manuela Brink MD Primary Care Provider [phone] Encounter Details Date Type Department Care Team (Late st Contact Info) Description 12/07/[address] [facility] - Main Lab 299 [facility] [place] [address] Richard Huddleston MD [address] [place], [place] [id number] Chronic kidney disease, unspecified; Type 2 diabetes [...] % LAB CHEMISTRY METHOD 12/09/2024 6:04 PM [facility] Mean Bld Glu Estim. 146 mg/dL LAB CHEMISTRY METHOD 12/09/2024 6:04 PM [facility] Blood Venous blood specimen / Unknown Venipuncture / Unknown 12/09/2024 5:14 AM EST 12/09/2024 10:53 AM EST us Richard Huddleston MD LAB BLOOD ORDERABLES Final Resul t [facility] [address] [place] [address], [place] [phone] * (ABNORMAL) Comprehensive metabolic panel (12/09/2024 5:14 AM EST) [facility] Sodium 142 133 - 145 mmol/L LAB CHEMISTRY METHOD 12/09/2024 12:35 PM [facility] Potassium 4.1 3.5 - 5.5 mmol/L LAB CHEMISTRY METHOD 12/09/2024 12:35 PM [facility] Chloride 110 96 - 110 mmol/L LAB CHEMISTRY METHOD 12/09/2024 12:35 PM [facility] CO2 22 21 - 32 mmol/L LAB CHEMISTRY METHOD 12/09/2024 12:35 PM [facility] Anion Gap 10 3 - 11 LAB CHEMISTRY METHOD 12/09/2024 12:35 PM [facility] Glucose 96 70 - 100 mg/dL LAB CHEMISTRY METHOD 12/09/2024 12:35 PM [facility] BUN 21 5 - 25 mg/dL LAB CHEMISTRY METHOD 12/09/2024 12:35 PM [facility] Creatinine 1.52(H) 0.50 - 1.10 mg/dL LAB CHEMISTRY METHOD 12/09/2024 12:35 PM [facility] eGFR 33(L) >=60 mL/min/1. 73m2 LAB CHEMISTRY METHOD 12/09/2024 12:35 PM [facility] Comment:Calculation based on the??Chronic Kidney Disease Epidemiology Collaboration (CKD-EPI) equation refit??without adjustment for race. BUN/Creatinine Ratio 13.8 LAB CHEMISTRY METHOD 12/09/2024 12:35 PM [facility] Calcium 9.3 8.5 - 10.5 mg/dL LAB CHEMISTRY METHOD 12/09/2024 12:35 PM [facility] AST (SGOT) 13 10 - 42 unit/L LAB CHEMISTRY METHOD 12/09/2024 12:35 PM [facility] ALT (SGPT) 15 10 - 60 unit/L LAB CHEMISTRY METHOD 12/09/2024 12:35 PM [facility] Alkaline Phosphatase 110 42 - 121 unit/L LAB CHEMISTRY METHOD 12/09/2024 12:35 PM [facility] Total Protein 6.5 6.0 - 8.0 g/dL LAB CHEMISTRY METHOD 12/09/2024 12:35 PM [facility] Albumin 3.1(L) 3.2 - 5.0 g/dL LAB CHEMISTRY METHOD 12/09/2024 12:35 PM [facility] Total Bilirubin 0.4 0.0 - 1.4 mg/dL LAB CHEMISTRY METHOD 12/09/2024 12:35 PM [facility] Blood Venous blood specimen / Unknown Venipuncture / Unknown 12/09/2024 5:14 AM EST 12/09/2024 10:52 AM EST us Richard Huddleston MD LAB BLOOD ORDERABLES Final Resul t [facility] [address] [place] [address], * (ABNORMAL) Complete blood count (12/09/2024 5:14 AM EST) [facility] WBC 4.8 4.8 - 10.8 K/mcL LAB HEMETOLOGY METHOD 12/09/2024 2:17 PM [facility] RBC 4.20 3.80 - 4.80 M/mcL LAB HEMETOLOGY METHOD 12/09/2024 2:17 PM [facility] Hemoglobin 12.6 11.5 - 16.0 g/dL LAB HEMETOLOGY METHOD 12/09/2024 2:17 PM [facility] Hematocrit 39.5 35.0 - 47.0 % LAB HEMETOLOGY METHOD 12/09/2024 2:17 PM [facility] MCV 93.4 79.0 - 98.0 FL LAB HEMETOLOGY METHOD 12/09/2024 2:17 PM [facility] MCH 29.8 27.0 - 32.0 pcg LAB HEMETOLOGY METHOD 12/09/2024 2:17 PM [facility] MCHC 31.9(L) 32.0 - 37.0 g/dL LAB HEMETOLOGY METHOD 12/09/2024 2:17 PM [facility] RDW 13.6 11.0 - 15.0 % LAB HEMETOLOGY METHOD 12/09/2024 2:17 PM [facility] Platelets 168 130 - 400 K/mcL LAB HEMETOLOGY METHOD 12/09/2024 2:17 PM [facility] MPV 11.3(H) 7.0 - 11.0 FL LAB HEMETOLOGY METHOD 12/09/2024 2:17 PM [facility] NRBC 0.0 <1.0 % LAB HEMETOLOGY METHOD 12/09/2024 2:17 PM [facility] NRBC Absolute 0.00 <0.10 K/mcL LAB HEMETOLOGY METHOD 12/09/2024 2:17 PM EST [facility] Blood Venous blood specimen / Unknown Venipuncture / Unknown 12/09/2024 5:14 AM EST 12/09/2024 10:53 AM EST us Richard Huddleston MD LAB BLOOD ORDERABLES Final Resul t [facility] [address] [place] [address], documented in this encounter Visit Diagnoses Diagnosis Chronic kidney disease, unspecified Type 2 diabetes mellitus without complications documented in this encounter Additional Health Concerns Infection Onset Date Last Indicated Resolved Time Respiratory Rule-Out 12/19/2024 12/19/2024 025 1:52 PM EST Influenza 12/19/2024 12/19/2024 01/12/2025 7:04 PM EDT documented as of this encounter Care Teams Mri Technologist Relationship Specialty Start Date End Date Manuela Brink MD [address] [place] [id number] PCP - General Internal Medicine 09/19/24 documented as of this encounter
--- OUTSIDE RECORDS SUMMARY | 2025-01-20 15:09 | XMS_ITS ---
Author Organization THOR MARTIN MD Address [address] [address] Care Team Providers Care Sleep Scientist Name Role Phone VERONICATHOR Primary Care Provider [phone] REASON FOR VISIT sign papers MEDICATIONS Medication [...] day Active Erythromycin 2 % 1 application Home Health Rn ally Twice a day for 21 days 06/18/2024 Active Metoprolol Tartrate 50 MG 1 tablet with food Orally Twice a day Active Eliquis 2.5 MG as directed Orally t wice day for 90 days 06/18/2024 Active Encounters Encounter Location Date Provider Diagnosis THOR MARTIN MD [address] [address] 07/03/2024 THOR MARTIN Type 2 diabetes jordana [...] Provider:??Thor Martin MD :[id number]?Age:84 Y?Sex:Fe male Date:07/03/2024 Address:[address] [place], [place] [id number] Subjective: * Chief Complaints: * ?1. Sign papers. * HPI: ?Constitutional:? vna certification ?date 06/19/2024 to 08/17/2024 ?Name of the agency;[facility] ?This patient has atrial fibrillation hypertension status [...] * Treatment: * Procedure Codes:??G0180 c ertification [facility] patient * Follow Up:??2 Months * Billing Information: * Visit Code:?? * Procedure Codes:?? G0180 certification [facility] patient. * Sign off status: Pending * Provider:??Thor Martin MD Date:??2023 History and Physical Notes * HPI (History of Present Illness) Category Sub-Category Detail Notes Category Not es Constitutional a certification date 06/19/2024 to 08/17/2024 Name of the agency;[facility] This patient has atrial fibrillation hypertension status post stroke. I have reviewed the medication and verified the diagnosis. Visiting nurses visits are not necessary patient is homebound.
--- OUTSIDE RECORDS SUMMARY | 2025-01-20 15:09 | XMS_ITS | Encounter Summary ---
Author Organization [facility] Address [address] [place] [phone] Care Team Providers Care Computer Support Specialist Instructor Name Role Phone Manuela Brink MD Primary Care Provider [phone] Encounter Details Date Type Department Care Team (Late st Contact Info) Description 12/20/[address] [facility] - Main Lab [address] [facility] [place] [address] Richard Huddleston MD [address] [place] [address] Acute cough; Nasal congestion; Weakness Social History [...] Procedure Name Priority Date/Time Associated Diagnosis Comments [id number], RSV, FLU A AND B QUALITATIVE RT-PCR, LOCAL REFERENCE LAB Routine 12/19/2024 12:00 AM EST Acute cough Nasal congestion Weakness documented in this encounter Results * (ABNORMAL) [id number], RSV, Influenza A and B qualitative RT-PCR (12/19/2024 12:00 AM EST) SARS COV-2 Not Detected Not Detected LAB MOLECULAR DIAGNOSTICS METHOD 12/20/2024 1:52 PM EST [facility] ([facility]) [facility] Comment: Disclaimer: The manner in which this information is used to guide patient care is the responsibility of the healthcare provider. Testing was performed using the InfiKnonity m SARS-CoV-2 test. This test has been [...] for Healthcare Providers can be found at: https://www.fda.gov/media/411487/download Fact sheet for Patients can be found at: https://www.fda.gov/media/496287/download Influenza A PCR Detected(A ) Not Detected LAB MOLECULAR DIAGNOSTICS METHOD 12/20/2024 1:52 PM EST [facility] Comment:This patient is posi tive for influenza A. If the patient is admitted, please order the Respiratory Virus Panel PCR (Epic ID: [id number]) so our lab can subtype the influenza A, per CDC recommendations. Influenza B PCR Not Detected Not Detected LAB MOLECULAR DIAGNOSTICS METHOD 12/20/2024 1:52 PM EST [facility] RSV PCR Not Detected Not Detected LAB MOLECULAR DIAGNOSTICS METHOD 12/20/2024 1:52 PM [facility] Swab Nasopharyngeal structure / Unknown 12/19/2024 12/20/2024 11:03 AM EST us Richard Huddleston MD LAB MICROBIOLOGY - GENERAL ORDER BECKY Final Result [facility] [address] [place] [address], documented in this encounter Visit Diagnoses Diagnosis Acute cough Nasal congestion Other diseases of nasal cavity and sinuses Weakness Other malaise and fatigue documented in this encounter Additional Health Concerns Infection Onset Date Last Indicated Resolved Time Respiratory Rule-Out 12/19/2024 12/19/2024 03/2 025 1:52 PM EST Influenza 12/19/2024 12/19/2024 01/12/2025 7:04 PM EDT documented as of this encounter Care Teams Computer Support Specialist Instructor Relationship Specialty Start Date End Date Manuela Brink MD [address] [place] [id number] PCP - General Internal Medicine 09/19/24 documented as of this encounter
--- OUTSIDE RECORDS SUMMARY | 2025-01-20 15:09 | XMS_ITS | Encounter Summary ---
Author Organization [facility] Address [address] [place] [address] Care Team Providers Care Electrician Underground Name Role Phone Manuela Brink MD Primary Care Provider [phone] Encounter Details Date Type Department Care Team (Late st Contact Info) Description 08/30/2024 Lab Requisition [facility] - Main Lab [address] [place] [address] Manuela Brink MD [address] [place] [phone] Essential (primary) hypertension Social History Tobacco Use [...] LAB CHEMISTRY METHOD 09/02/2024 10:03 AM EST [facility] Potassium 3.8 3.5 - 5.5 mmol/L LAB CHEMISTRY METHOD 09/02/2024 10:03 AM EST [facility] Chloride 110 96 - 110 mmol/L LAB CHEMISTRY METHOD 09/02/2024 10:03 AM [facility] CO2 27 21 - 32 mmol/L LAB CHEMISTRY METHOD 09/02/2024 10:03 AM [facility] Anion Gap 6 3 - 11 LAB CHEMISTRY METHOD 09/02/2024 10:03 AM [facility] Glucose 104(H) 70 - 100 mg/dL LAB CHEMISTRY METHOD 09/02/2024 10:03 AM [facility] BUN 14 5 - 25 mg/dL LAB CHEMISTRY METHOD 09/02/2024 10:03 AM [facility] Creatinine 1.58(H) 0.50 - 1.10 mg/dL LAB CHEMISTRY METHOD 09/02/2024 10:03 AM [facility] eGFR 32(L) >=60 mL/min/1. 73m2 LAB CHEMISTRY METHOD 09/02/2024 10:03 AM [facility] Comment:Calculation based on the??Chronic Kidney Disease Epidemiology Collaboration (CKD-EPI) equation refit??without adjustment for race. BUN/Creatinine Ratio 8.9 LAB CHEMISTRY METHOD 09/02/2024 10:03 AM [facility] Calcium 9.5 8.5 - 10.5 mg/dL LAB CHEMISTRY METHOD 09/02/2024 10:03 AM [facility] Blood Venous blood specimen / Unknown Venipuncture / Unknown 09/02/2024 5:19 AM EST 09/02/2024 8:55 AM EST us Manuela Brink MD LAB BLOOD ORDERABLES Final Res ult [facility] [address] [place] [address], * (ABNORMAL) Complete blood count (09/02/2024 5:19 AM EST) WBC 4.9 4.8 - 10.8 K/[facility] LAB HEMETOLOGY METHOD 09/02/2024 9:40 AM [facility] RBC 4.00 3.80 - 4.80 M/mcL LAB HEMETOLOGY METHOD 09/02/2024 9:40 AM [facility] Hemoglobin 11.6 11.5 - 16.0 g/dL LAB HEMETOLOGY METHOD 09/02/2024 9:40 AM [facility] Hematocrit 37.2 35.0 - 47.0 % LAB HEMETOLOGY METHOD 09/02/2024 9:40 AM [facility] MCV 92.3 79.0 - 98.0 FL LAB HEMETOLOGY METHOD 09/02/2024 9:40 AM [facility] MCH 28.8 27.0 - 32.0 pcg LAB HEMETOLOGY METHOD 09/02/2024 9:40 AM [facility] MCHC 31.2(L) 32.0 - 37.0 g/dL LAB HEMETOLOGY METHOD 09/02/2024 9:40 AM [facility] RDW 14.4 11.0 - 15.0 % LAB HEMETOLOGY METHOD 09/02/2024 9:40 AM [facility] Platelets 159 130 - 400 K/mcL LAB HEMETOLOGY METHOD 09/02/2024 9:40 AM [facility] MPV 11.3(H) 7.0 - 11.0 FL LAB HEMETOLOGY METHOD 09/02/2024 9:40 AM [facility] NRBC 0.0 <1.0 % LAB HEMETOLOGY METHOD 09/02/2024 9:40 AM [facility] NRBC Absolute 0.00 <0.10 K/mcL LAB HEMETOLOGY METHOD 09/02/2024 9:40 AM [facility] Blood Venous blood specimen / Unknown Venipuncture / Unknown 09/02/2024 5:19 AM EST 09/02/2024 8:55 AM EST Manuela Brink MD LAB BLOOD ORDERABLES Final Res ult [facility] ([facility] [address] [place] [address], documented in this encounter Visit Diagnoses Diagnosis Essential (primary) hypertension Unspecified essential hypertension documented in this encounter Additional Health Concerns Infection Onset Date Last Indicated Resolved Time Respiratory Rule-Out 12/19/2024 12/19/2024 025 1:52 PM EST Influenza 12/19/2024 12/19/2024 01/12/2025 7:04 PM EDT documented as of this encounter Care Teams Electrician Underground Relationship Specialty Start Date End Date Manuela Brink MD [address] [place] [phone] PCP - General Internal Medicine 09/19/24 documented as of this encounter
--- OUTSIDE RECORDS SUMMARY | 2025-01-20 15:09 | XMS_ITS | Encounter Summary ---
Author Organization [facility] Address [address] [place] [phone] Care Team Providers Care Pin Or Clip Fastener Name Role Phone Manuela Brink MD Primary Care Provider [phone] Encounter Details Date Type Department Care Team (Late st Contact Info) Description 08/23/2024 Lab Requisition [facility] - Main Lab [address] [place] [address] Manuela Brink MD [address] [place] [phone] Essential (primary) hypertension Social History Tobacco Use [...] LAB CHEMISTRY METHOD 08/26/2024 10:57 AM EST [facility] Potassium 4.2 3.5 - 5.5 mmol/L LAB CHEMISTRY METHOD 08/26/2024 10:57 AM EST [facility] Chloride 108 96 - 110 mmol/L LAB CHEMISTRY METHOD 08/26/2024 10:57 AM [facility] CO2 28 21 - 32 mmol/L LAB CHEMISTRY METHOD 08/26/2024 10:57 AM [facility] Anion Gap 6 3 - 11 LAB CHEMISTRY METHOD 08/26/2024 10:57 AM [facility] Glucose 108(H) 70 - 100 mg/dL LAB CHEMISTRY METHOD 08/26/2024 10:57 AM [facility] BUN 20 5 - 25 mg/dL LAB CHEMISTRY METHOD 08/26/2024 10:57 AM [facility] Creatinine 1.61(H) 0.50 - 1.10 mg/dL LAB CHEMISTRY METHOD 08/26/2024 10:57 AM [facility] eGFR 31(L) >=60 mL/min/1. 73m2 LAB CHEMISTRY METHOD 08/26/2024 10:57 AM [facility] Comment:Calculation based on the??Chronic Kidney Disease Epidemiology Collaboration (CKD-EPI) equation refit??without adjustment for race. BUN/Creatinine Ratio 12.4 LAB CHEMISTRY METHOD 08/26/2024 10:57 AM [facility] Calcium 10.0 8.5 - 10.5 mg/dL LAB CHEMISTRY METHOD 08/26/2024 10:57 AM [facility] Blood Venous blood specimen / Unknown Venipuncture / Unknown 08/26/2024 5:28 AM EST 08/26/2024 9:01 AM EST us Manuela Brink MD LAB BLOOD ORDERABLES Final Res ult [facility] [address] [place] [address], * (ABNORMAL) Complete blood count (08/26/2024 5:28 AM EST) WBC 5.3 4.8 - 10.8 K/[facility] LAB HEMETOLOGY METHOD 08/26/2024 10:46 AM [facility] RBC 4.40 3.80 - 4.80 M/mcL LAB HEMETOLOGY METHOD 08/26/2024 10:46 AM [facility] Hemoglobin 12.5 11.5 - 16.0 g/dL LAB HEMETOLOGY METHOD 08/26/2024 10:46 AM [facility] Hematocrit 40.4 35.0 - 47.0 % LAB HEMETOLOGY METHOD 08/26/2024 10:46 AM [facility] MCV 92.2 79.0 - 98.0 FL LAB HEMETOLOGY METHOD 08/26/2024 10:46 AM [facility] MCH 28.5 27.0 - 32.0 pcg LAB HEMETOLOGY METHOD 08/26/2024 10:46 AM [facility] MCHC 30.9(L) 32.0 - 37.0 g/dL LAB HEMETOLOGY METHOD 08/26/2024 10:46 AM [facility] RDW 13.9 11.0 - 15.0 % LAB HEMETOLOGY METHOD 08/26/2024 10:46 AM [facility] Platelets 199 130 - 400 K/mcL LAB HEMETOLOGY METHOD 08/26/2024 10:46 AM [facility] MPV 11.1(H) 7.0 - 11.0 FL LAB HEMETOLOGY METHOD 08/26/2024 10:46 AM [facility] NRBC 0.0 <1.0 % LAB HEMETOLOGY METHOD 08/26/2024 10:46 AM [facility] NRBC Absolute 0.00 <0.10 K/mcL LAB HEMETOLOGY METHOD 08/26/2024 10:46 AM [facility] Blood Venous blood specimen / Unknown Venipuncture / Unknown 08/26/2024 5:28 AM EST 08/26/2024 9:01 AM EST Manuela Brink MD LAB BLOOD ORDERABLES [facility] [address] [place] [address], documented in this encounter Visit Diagnoses Diagnosis Essential (primary) hypertension Unspecified essential hypertension documented in this encounter Additional Health Concerns Infection Onset Date Last Indicated Resolved Time Respiratory Rule-Out 12/19/2024 12/19/2024 025 1:52 PM EST Influenza 12/19/2024 12/19/2024 01/12/2025 7:04 PM EDT documented as of this encounter Care Teams Pin Or Clip Fastener Relationship Specialty Start Date End Date Manuela Brink MD [address] [place] [phone] PCP - General Internal Medicine 09/19/24 documented as of this encounter
--- OUTSIDE RECORDS SUMMARY | 2025-01-20 15:09 | XMS_ITS | Encounter Summary ---
Author Organization [facility] Address [address] [place] [phone] Care Team Providers Care Underwater Trapper Name Role Phone Manuela Brink MD Primary Care Provider [phone] Encounter Details Date Type Department Care Team (Latest Contact Info) Description 09/17/2024 Lab Requisition [facility] - Main Lab 299 [facility] [place] [address] Manuela Brink MD [address] [place] [phone] Dysuria; Encephalopathy, unspecified; Essential (primary) hypertension; Unspecified [...] unspecified Essential (primary) hypertension Unspecified atrial fibrillation ([facility]/HCC) Chronic kidney disease, unspecified Type 2 diabetes mellitus without complications ([facility]) documented in this encounter Results * (ABNORMAL) Urinalysis with reflex microscopic (09/16/2024 12:00 AM EST) Specific [place] Urine 1.015 1.003 - 1.030 LAB URINALYSIS - AUTOMATED METHOD 09/17/2024 12:39 PM [facility] pH, Urine 6.5 5.0 - 8.0 pH LAB URINALYSIS - AUTOMATED METHOD 09/17/2024 12:39 PM [facility] Leukocytes, Urine Large(A) Negative LAB URINALYSIS - AUTOMATED METHOD 09/17/2024 12:39 PM [facility] Nitrite, Urine Negative Negative LAB URINALYSIS - AUTOMATED METHOD 09/17/2024 12:39 PM [facility] Protein, Urine Trace <=Trace mg/dL LAB URINALYSIS - AUTOMATED METHOD 09/17/2024 12:39 PM [facility] Glucose, Urine Negative Negative mg/dL LAB URINALYSIS - AUTOMATED METHOD 09/17/2024 12:39 PM [facility] Ketones, Urine Negative Negative mg/dL LAB URINALYSIS - AUTOMATED METHOD 09/17/2024 12:39 PM [facility] Urobilinogen, Urine 0.2 0.2 - 1.0 mg/dL LAB URINALYSIS - AUTOMATED METHOD 09/17/2024 12:39 PM [facility] Bilirubin, Urine Negative Negative LAB URINALYSIS - AUTOMATED METHOD 09/17/2024 12:39 PM [facility] Blood, Urine Negative Negative LAB URINALYSIS - AUTOMATED METHOD 09/17/2024 12:39 PM [facility] RBC, Urine 1.2 0 - 4 /HPF LAB URINALYSIS - AUTOMATED METHOD 09/17/2024 12:39 PM [facility] WBC, Urine 16.7(H) 0 - 4 /HPF LAB URINALYSIS - AUTOMATED METHOD 09/17/2024 12:39 PM [facility] Squamous Epithelial, Urine >100(H) 0 - 60 /LPF LAB URINALYSIS - AUTOMATED METHOD 09/17/2024 12:39 PM [facility] Bacteria, Urine Negative Negative /HPF LAB URINALYSIS - AUTOMATED METHOD 09/17/2024 12:39 PM [facility] Hyaline Casts, Urine 0.4 0 - 3 /LPF LAB URINALYSIS - AUTOMATED METHOD 09/17/2024 12:39 PM [facility] Urine Urine specimen obtained by clean catch procedure / Unknown Non-blood Collection / Unknown 09/16/2024 09/17/2024 11:50 AM EST us Manuela Brink MD LAB URINE ORDERABLES Final Res ult [facility] [address] [place] [address], [place] [phone] * Culture urine (09/16/2024 12:00 AM EST) Culture, Urine <10,000 cfu/mL Mixed bacterial geovanny 09/19/2024 11:56 AM [facility] Urine Urine specimen obtained by clean catch procedure / Unknown Non-blood Collection / Unknown 09/16/2024 09/17/2024 11:50 AM EST us Manuela Brink MD LAB MICROBIOLOGY - GENERAL ORD ERABLES Final Result Performing Organization Address City/[facility]/ZIP Co de Phone Number [facility] [address] [place] [address], [place] [phone] documented in this encounter Visit Diagnoses Diagnosis [...] documented as of this encounter Care Teams Underwater Trapper Relationship Specialty Start Date End Date Manuela Brink MD [address] [place] [phone] PCP - General Internal Medicine 09/19/24 documented as of this encounter
--- OUTSIDE RECORDS SUMMARY | 2025-01-20 15:10 | XMS_ITS | Clinical Summary ---
Author Organization [address] [facility] Address [address] [place] [address] Phone Care Team Providers Care [employer] Name Role Phone Manuela Brink MD Primary Care Provider [phone] Encounters Date Type Department Care Team Description 01/01/2025 Lab Requisition [facility] [address] [place] [phone] Richard Huddleston MD Hypothyroidism, unspecified 12/30/2024 Lab Requisition [facility] [address] [place] [phone] Richard Huddleston MD Unspecified atrial fibrillation (CMS/HCC); Other seizures (CMS/HCC); Chronic kidney disease, unspecified 12/20/2024 Lab Requisition [facility] [address] [place] [phone] Richard Huddleston MD Acute cough; Nasal congestion; Weakness 12/07/2024 Lab Requisition [facility] [address] [place] [phone] Richard Huddleston MD Chronic kidney disease, unspecified; [...] Vaccines (1 of 2) 1989 RSV Immunization Adult Patients (1 - 1-dose 75+ series) 2014 Cholesterol Screening (Lipid Panel) 05/17/2024 Depression Screening 05/17/2024 Falls Risk Assessment 05/17/2024 Medicare Annual Wellness Visit 05/17/2024 Osteoporosis Screening (Bone Density Screening) 05/17/2024 Social Influencers of Health Screening 05/17/2024 COVID-19 Vaccine ( season) 2024 Diabetes: Annual Urine Albumin-Creatinine Ratio (uACR) 09/17/2024 Diabetes: Blood Sugar Control Test (HGBA1C) 06/08/2025 12/09/2024 Influenza Vaccine (Season Ended) 2025 Diabetes: Annual GFR (Glomerular Filtration Rate) 12/30/2025 12/30/2024, 12/09/2024, 09/18/2024, Additional history exists Hypertension/CHF/CAD Annual BMP Blood Test 12/30/2025 12/30/2024, 12/09/2024, 09/18/2024, Additional history exists HIB Vaccines Aged Out [...] age to complete this topic Meningococcal B Vaccine Aged Out No l onger eligible based on patient's age to complete this topic RSV Immunization Patients Under 20 months Aged Out No longer eligible based on patient's age to complete this topic Varicella Vaccines Aged Out No longer eligible based on patient's age to complete this topic Procedures Procedure Name Priority Date/Time Associated Diagnosis Comments THYROID STIMULATING HORMONE Routine 01/01/2025 5:51 AM EDT Hypothyroidism, unspecified THYROID STIMULATING HORMONE Routine 12/30/2024 5:31 [...] Other seizures (CMS/HCC) Chronic kidney disease, unspecified COMPLETE BLOOD COUNT Routine 12/30/2024 5:31 AM EDT Unspecified atrial fibrillation (CMS/HCC) Other seizures (CMS/HCC) Chronic kidney disease, unspecified [id number], RSV, FLU A AND B QUALITATIVE RT-PCR, [...] from Last 3 Months Results * (ABNORMAL) Thyroid stimulating hormone (01/01/2025 5:51 AM EDT) Only the most recent of2 resultswithin the time period is included. TSH 14.96(H) 0.40 - 4.00 mcIU/mL LAB CHEMISTRY METHOD 01/01/2025 12:44 PM EDT [facility] Blood Venous blood specimen / Unknown Venipuncture / Unknown 01/01/2025 5:51 AM EDT 01/01/2025 10:41 AM EDT us Richard Huddleston MD LAB BLOOD ORDERABLES Final Resul t [facility] [address] [place] [address], [place] [phone] * (ABNORMAL) Complete blood count (12/30/2024 5:31 AM EDT) Only the most recent of2 resultswithin the time period is included. WBC 5.6 4.8 - 10.8 K/mcL LAB HEMETOLOGY METHOD 12/30/2024 12:29 PM EDT [facility] RBC 4.80 3.80 - 4.80 M/mcL LAB HEMETOLOGY METHOD 12/30/2024 12:29 PM EDT [facility] Hemoglobin 13.8 11.5 - 16.0 g/dL LAB HEMETOLOGY METHOD [facility] Hematocrit 43.5 35.0 - 47.0 % LAB HEMETOLOGY METHOD 12/30/2024 12:29 PM EDT [facility] MCV 91.6 79.0 - 98.0 FL LAB HEMETOLOGY METHOD 12/30[facility]2024 [facility] MCH 29.1 27.0 - 32.0 pcg LAB HEMETOLOGY METHOD 12/30/2024 [facility] MCHC 31.7(L) 32.0 - 37.0 g/dL LAB HEMETOLOGY METHOD 12/30/2024 12:29 PM EDT [facility] RDW 13.6 11.0 - 15.0 % LAB HEMETOLOGY METHOD 12/30/2024 12:29 PM EDT [facility] Platelets 200 130 - 400 K/mcL LAB HEMETOLOGY METHOD 12/30/2024 12:29 PM EDT [facility] MPV 11.3(H) 7.0 - 11.0 FL LAB HEMETOLOGY METHOD 12/30/2024 12:29 PM EDT [facility] NRBC 0.0 <1.0 % LAB HEMETOLOGY METHOD 12/30/2024 12:29 PM EDT [facility] NRBC Absolute 0.00 <0.10 K/mcL LAB HEMETOLOGY METHOD 12/30/2024 12:29 PM EDT [facility] Blood Venous blood specimen / Unknown Venipuncture / Unknown 12/30/2024 5:31 AM EDT 12/30/2024 11:12 AM EDT us Richard Huddleston MD LAB BLOOD ORDERABLES Final Resul t [facility] [address] [place] [address], [place] [phone] * Folate (12/30/2024 5:31 AM EDT) Folate 4.5 2.8 - 17.0 ng/ml LAB CHEMISTRY METHOD 12/30/2024 3:33 PM EDT [facility] Blood Venous blood specimen / Unknown Venipuncture / Unknown 12/30/2024 5:31 AM EDT 12/30/2024 11:12 AM EDT us Richard Huddleston MD LAB BLOOD ORDERABLES Final Resul t [facility] [address] [place] [address], [place] [phone] * Vitamin B12 (12/30/2024 5:31 AM EDT) [facility] Vitamin B-12 299 250 - 900 pcg/mL LAB CHEMISTRY METHOD 12/30/2024 3:33 PM EDT [facility] Blood Venous blood specimen / Unknown Venipuncture / Unknown 12/30/2024 5:31 AM EDT 12/30/2024 11:12 AM EDT us Richard Huddleston MD LAB BLOOD ORDERABLES Final Resul t [facility] [address] [place] [address], [place] [phone] * (ABNORMAL) Comprehensive metabolic panel (12/30/2024 5:31 AM EDT) Only the most recent of2 resultswithin the time period is included. [facility] Sodium 137 133 - 145 mmol/L LAB CHEMISTRY METHOD 12/30/2024 3:39 PM [facility] Potassium 3.6 3.5 - 5.5 mmol/L LAB CHEMISTRY METHOD 12/30/2024 3:39 PM [facility] Chloride 104 96 - 110 mmol/L LAB CHEMISTRY METHOD 12/30/2024 3:39 PM [facility] CO2 25 21 - 32 mmol/L LAB CHEMISTRY METHOD 12/30/2024 3:39 PM T [facility] Anion Gap 8 3 - 11 LAB CHEMISTRY METHOD 12/30/2024 3:39 PM [facility] Glucose 104(H) 70 - 100 mg/dL LAB CHEMISTRY METHOD 12/30/2024 3:39 PM [facility] BUN 35(H) 5 - 25 mg/dL LAB CHEMISTRY METHOD 12/30/2024 3:39 PM [facility] Creatinine 1.90(H) 0.50 - 1.10 mg/dL LAB CHEMISTRY METHOD 12/30/2024 3:39 PM T [facility] eGFR 26(L) >=60 mL/min/1. 73m2 LAB CHEMISTRY METHOD 12/30/2024 3:39 PM T [facility] Comment:Calculation based on the??Chronic Kidney Disease Epidemiology Collaboration (CKD-EPI) equation refit??without adjustment for race. BUN/Creatinine Ratio 18.4 LAB CHEMISTRY METHOD 12/30/2024 3:39 PM EDT [facility] Calcium 9.6 8.5 - 10.5 mg/dL LAB CHEMISTRY METHOD 12/30/2024 3:39 PM [facility] AST (SGOT) 19 10 - 42 unit/L LAB CHEMISTRY METHOD 12/30/2024 3:39 PM [facility] ALT (SGPT) 17 10 - 60 unit/L LAB CHEMISTRY METHOD 12/30/2024 3:39 PM T [facility] Alkaline Phosphatase 105 42 - 121 unit/L LAB CHEMISTRY METHOD 12/30/2024 3:39 PM [facility] Total Protein 6.7 6.0 - 8.0 g/dL LAB CHEMISTRY METHOD 12/30/2024 3:39 PM [facility] Albumin 3.2 3.2 - 5.0 g/dL LAB CHEMISTRY METHOD 12/30/2024 3:39 PM [facility] Total Bilirubin 0.5 0.0 - 1.4 mg/dL LAB CHEMISTRY METHOD 12/30/2024 3:39 PM [facility] Blood Venous blood specimen / Unknown Venipuncture / Unknown 12/30/2024 5:31 AM EDT 12/30/2024 11:12 AM EDT us Richard Huddleston MD LAB BLOOD ORDERABLES Final Resul t [facility] [address] [place] [address], * (ABNORMAL) URBG-VAC3-DLM, RSV, Influenza A and B qualitative RT-PCR (12/19/2024 12:00 AM EST) SARS COV-2 Not Detected Not Detected LAB MOLECULAR DIAGNOSTICS METHOD 12/20/2024 1:52 PM EST [facility] Comment: Disclaimer: The manner in which this information is used to guide patient care is the responsibility of the healthcare provider. Testing was performed using the [employer] m SARS-CoV-2 test. This test has [...] for Healthcare Providers can be found at: https://www.fda.gov/media/715740/download Fact sheet for Patients can be found at: https://www.fda.gov/media/513873/download Influenza A PCR Detected(A ) Not Detected LAB MOLECULAR DIAGNOSTICS METHOD 12/20/2024 1:52 PM EST [facility] Comment:This patient is posi tive for influenza A. If the patient is admitted, please order the Respiratory Virus Panel PCR ([facility] ID: [id number]) so our lab can subtype the influenza A, per CDC recommendations. Influenza B PCR Not Detected Not Detected LAB MOLECULAR DIAGNOSTICS METHOD 12/20/2024 1:52 PM EST [facility] RSV PCR Not Detected Not Detected LAB MOLECULAR DIAGNOSTICS METHOD 12/20/2024 1:52 PM EST [facility] Swab Nasopharyngeal structure / Unknown 12/19/2024 12/20/2024 11:03 AM EST Richard Huddleston MD LAB MICROBIOLOGY - GENERAL ORDER EBCKY Final Result [facility] [address] [place] [address], [place] [phone] * (ABNORMAL) Hemoglobin A1c (12/09/2024 5:14 AM EST) Hemoglobin A1C 6.7(H) <6.5 % LAB CHEMISTRY METHOD 12/09/2024 6:04 PM EST [facility] Mean Bld Glu Estim. 146 mg/dL LAB CHEMISTRY METHOD 12/09/2024 6:04 PM EST [facility] Blood Venous blood specimen / Unknown Venipuncture / Unknown 12/09/2024 5:14 AM EST 12/09/2024 10:53 AM EST Richard Huddleston MD LAB BLOOD ORDERABLES Final Resul t [facility] [address] [place] [address], [place] [phone] from Last 3 Months Insurance MEDICAID - [place] MEDICARE Care Teams [employer] Relationship Specialty Start Date End Date Manuela Brink MD [address] [place] [phone] PCP - General Internal Medicine 09/19/24
== END 2025-01-20 12:50 | disposition home or self-care (01) ==
LOC: HO.SH 12:49
PROVIDERS: Visit Provider Family Medicine Geriatric Medicine
DX: Z01.118 Encounter for examination of ears and hearing with other abnormal findings (principal); H90.3 Sensorineural hearing loss, bilateral
CPT/HCPCS: 92557; 92567

== ENCOUNTER 2025-09-25 10:18 | Outpatient (AMB) | payer MEDICARE, MEDICAID, SELFPAY ==
--- NOTE | 2025-09-25 10:30 | MHC.OFFVIS ---
Intake Visit Reasons: follow up 6m Allergies No Known Allergies Allergy (Verified 12/25/24 17:08) HPI Comments Details: 85 yo RH woman with atrial fibb on anticoagulation came [place] [facility] [place] with slurred speech and right sided weakness. Overall impression was that she had a seizure instead of a stroke. Routine EEG revealed mild slowing. CTA of brain revealed chronic large left posterior cerebral artery now smaller right frontal cortical embolic looking ischemic infarctions. She denies any recent convulsions or seizures. She reports difficulty with her hearing and is in the process of getting a hearing aid. The patient resides at [facility]. [facility] Medical History (Updated 09/25/25 @ 10:40 by Sherita Hansen MD) Seizure Cerebrovascular accident Social History Household Members: Unknown / Unable to assess Housing: Unknown / Unable to assess Patient Tobacco Use Status: Tobacco use Unknown service: No Review of Systems Narrative - Neurological: Denies convulsions or seizures. - HEENT/Auditory: Reports hearing difficulty. Physical Exam Neuro Other: Mental Status: Alert and oriented to person, place, and time. Normal attention. Normal spontaneous speech, fluency, and comprehension. Cranial Nerves: CN II: Right hemianopsia CN III, IV, : Pupils equal, round, reactive to light and accommodation. Extraocular movements are normal. CN V: Facial sensation is normal. CN VII: Facial movements symmetrical. CN VIII: Hearing intact to bedside conversation is normal. CN IX, X: Palate elevates symmetrically. CN XI: Shoulder shrug and head turn symmetrical. CN XII: Tongue midline without atrophy or fasciculations. Motor: Bulk and tone normal in all extremities. No significant muscle weakness in arms and legs. No drift. Reflexes: Deep tendon reflexes 2+ and symmetric. Plantar response down-going bilaterally. Coordination: [id number] and [id number] testing normal. No dysmetria. Gait and Station: No obvious gait abnormality. No ataxia or instability. Extrapyramidal: Full facial expressions and blinking. No rigidity. Movements are appropriate with no tremor or abnormality. Speech: Normal; no dysarthria or tremor. Assessment & Plan Assessment & Plan (1) Vascular dementia: Comment: [place] brain [place] [facility] [place]: Large left parietal occipital and smaller right fronto parietal embolic looking chronic ischemic infarcts, mild atrophy CTA brain and neck at [facility] [place] Dec 20[place]: Mod R MCA stenosis, mild L M2 stenosis, mild to mod [employer] stenosis Code(s): F01.50 - Vascular dementia, unspecified severity, without behavioral disturbance, psychotic disturbance, mood disturbance, and anxiety Category: Medical Qualifiers: Dementia severity: moderate Dementia behavioral or psychological symptom: with anxiety Qualified Code(s): F01.B4 - Vascular dementia, moderate, with anxiety (2) Seizure disorder: Code(s): G40.909 - Epilepsy, unspecified, not intractable, without status epilepticus Category: Medical (3) Intracranial atherosclerosis: Code(s): I67.2 - Cerebral atherosclerosis Category: Medical (4) Multiple cerebral infarctions: Code(s): I63.9 - Cerebral infarction, unspecified Category: Medical Plan Impression: a: Seizure disorder, complex partial type, from strokes b: Multiple embolic type cerebral infarctions with atrial fibb and intracranial atherosclerosis c: Intracranial atheroscleorosis d: Vascular dementia e: Hearing impairment f: Right hemianopsia from stroke Rec: a: Continue levetiracetam 500mg bid b: BP control c: Continue anticoagulation. If any TIA/stroke like symptoms happen, maximize anticoagulation and consider adding a baby aspirin daily or 2 times a week d: Hearing aid Coding Level of Care Code Est Pt Level 4 (83711) Diagnoses Moderate vascular dementia with anxiety F01.B4 Dementia severity: moderate Dementia behavioral or psychological symptom: with anxiety Seizure disorder G40.909 Intracranial atherosclerosis I67.2 Multiple cerebral infarctions I63.9
== END 2025-09-25 10:44 | disposition home or self-care (01) ==
PROVIDERS: PCP Family Medicine Geriatric Medicine; Referring Provider Family Medicine Geriatric Medicine; Visit Provider Psychiatry & Neurology Neurology
DX: F01.B4 Vascular dementia, moderate, with anxiety (principal); G40.909 Epilepsy, unspecified, not intractable, without status epilepticus; I67.2 Cerebral atherosclerosis; I63.9 Cerebral infarction, unspecified
CPT/HCPCS: 99214

== ENCOUNTER → 2025-09-25 10:18 | Outpatient (BNVA) | payer MEDICARE, MEDICAID, SELFPAY | PROVIDERS: PCP Family Medicine Geriatric Medicine; Referring Provider Family Medicine Geriatric Medicine; Visit Provider Psychiatry & Neurology Neurology | DX: F01.B4 Vascular dementia, moderate, with anxiety (principal); G40.909 Epilepsy, unspecified, not intractable, without status epilepticus; I67.2 Cerebral atherosclerosis; I63.9 Cerebral infarction, unspecified | CPT/HCPCS: 99212 ==

== ENCOUNTER 2025-10-08 06:37 | Emergency (ER) | payer MEDICARE, MEDICAID, SELFPAY ==
[2025-10-08] VITALS (7 sets, daily range): BP systolic 147–189; BP diastolic 79–110; PULSE 94–98; RESP 10–15; TEMP -17.7–37.2; O2SAT 94–98; BMI 39.6
--- NOTE | ~2025-10-08 | CT_ITS ---
CLINICAL HISTORY: Stroke Protocol garbled speech Exam: CTA head and neck with IV contrast, 3D post-processing Exam: CT cervical spine without IV contrast. Comparison: CT/REG/SR - CT HEAD FOR STROKE - 10/08/25 06:[address]/ID/SR - CT HEAD NECK ANGIOGRAPHY WITH IV CONTRAST STROKE - 12/25/24 16:01 EDT Findings: CTA neck: Three-vessel aortic arch. Scattered atherosclerotic calcification of the aortic arch, arch vessel origins, left vertebral artery origin, right carotid bulb. The aortic arch, arch vessel takeoffs, bilateral common carotid, internal and external carotid arteries are patent, no aneurysm, dissection or significant stenosis. Patent vertebral arteries, no dissection or aneurysm, right vertebral artery is normal in caliber, moderate stenosis of the left vertebral artery origin due to calcification. CTA head: Moderate atherosclerotic calcification of the intracranial ICAs, mild calcification of the right intradural vertebral artery. Patent anterior and posterior circulation, no dissection or flow-limiting stenosis. Well-defined spherical saccular aneurysm at the left ICA/MCA junction, 5 mm diameter. Stable moderate focal stenosis of the right MCA M2 superior division origin. Stable size asymmetry of MOLLY A1 segments, left is diffusely small, probably variant anatomy. 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 Stable mild focal stenosis of the right COMPUTER DRAFTER origin and P1/P2 junction. Patent dural venous sinuses. Cervical spine: Cervical spine alignment is normal. Atlantoaxial relationship is normal. No acute fracture or suspicious osseous lesion. Moderate multilevel degenerative spondylosis of the cervical spine, no high-grade central canal stenosis. Normal prevertebral soft tissue and paraspinal musculature. Others: No abnormal intracranial enhancement. Unchanged encephalomalacia right frontal lobe, left parietal occipital lobe and right occipital lobe. Please see separate noncontrast CT head report. Unremarkable imaged neck soft tissue. Enlarged right thyroid lobe with heterogeneous attenuation, probably due to nodules, unchanged. Unremarkable lung apices. No acute osseous abnormality. Impression: 1. Patent major arteries in the head and neck, no dissection or flow-limiting stenosis. No acute fracture or traumatic malalignment of the cervical spine. 2. 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 3. Stable moderate ostial stenosis of the left vertebral artery, multifocal mild to moderate stenosis of intracranial vessels, as detailed above. 4. Additional stable chronic findings. Carotid stenosis and measurements are in accordance with NASCET criteria. This document has been electronically signed by: Felicia Guzman MD on 10/08/2025 09:33:02
--- NOTE | ~2025-10-08 | CT_ITS ---
CLINICAL HISTORY: stroke alert garbled speech CT head without contrast Comparison: CT/IL/SR - CT HEAD NECK ANGIOGRAPHY WITH IV CONTRAST STROKE - 12/25/24 16:[address]/IL/SR - CT HEAD WITHOUT IV CONTRAST STROKE - 12/25/24 15:52 EDT Findings: Ex vacuo dilatation is noted of the ventricles. Chronic low-density periventricular deep white matter changes are noted. Atherosclerotic calcification is noted. A arsh cisterna magna is noted. Generalized cerebral atrophy is noted with chronic areas of encephalomalacia involving the right frontal, left parietal, and bilateral occipital lobes compatible with chronic areas of cerebral infarct. The visualized paranasal sinuses and mastoid air cells are normal. The orbits are within normal limits. There is no acute fracture. There is congenital incomplete fusion of the posterior arch of C1. IMPRESSION: 1. No acute intracranial findings. 2. Chronic changes noted as described above with prior cerebral infarcts. This document has been electronically signed by: Manjinder Juan MD on 10/08/2025 07:07:56
--- NOTE | ~2025-10-08 | XR_ITS ---
EXAMINATION: XR CHEST 1 VIEW HISTORY: hypoxia COMPARISON: Comparison is made with the prior examination dated 12/26/2024. FINDINGS: A single AP portable view of the chest performed at 8:11 AM is submitted. There are low lung volumes. There is scarring in both lower lung zones. There is no focal airspace opacity. There is no pleural effusion, pneumothorax, or pulmonary vascular congestion. The heart is normal in size. The aorta is calcified. There is degenerative disc disease of the spine. XR/XR chest 1V IMPRESSION: Low lung volumes. No acute cardiopulmonary abnormality. Electronically signed by: Jose Mckay MD 10/08/2025 08:22 AM [facility]
--- NOTE | 2025-10-08 06:46 | ECG_ITS ---
Test Reason : stroke alert Blood Pressure : */* mmHG Vent. Rate : 102 BPM Atrial Rate : * BPM P-R Int : * ms QRS Dur : 92 ms QT Int : 300 ms P-R-T Axes : * 113 -27 degrees QTcB Int : 391 ms Atrial fibrillation with rapid ventricular response with premature ventricular or aberrantly conducted complexes Right axis deviation Abnormal QRS-T angle, consider primary T wave abnormality Abnormal ECG When compared with ECG of 25-Dec-2024 16:19, Questionable change in QRS axis Inverted T waves have replaced nonspecific T wave abnormality in Inferior leads Referred By: Rhett Pepper Electronically Signed By: HAIM FOREMAN MD
[2025-10-08 06:49] LABS: Prothrombin Time Whole Bld POC 17.8 sec (11.1-13.5); ~PT, ~INR - Anti Coag Clinic 1.5 (0.9-1.1)
--- NOTE | 2025-10-08 06:49 | ED_ITS ---
HPI - Neuro Symptoms/Deficit General Chief Complaint: Stroke Stated Complaint: ?STROKE,LKWT 5:30A,FALL,?HS,GARBLED,R DROOP,ELIQUI Time Seen by Provider: 10/08/25 06:45 Source: patient and EMS Mode of arrival: EMS Limitations: altered mental status History of Present Illness ED Provider: DR. Pepper HPI Narrative: [age] year old female PMHX CVAs, CKD 3, paroxysmal AFib, on Eliquis, hypertension presented from halfway facility for right-sided weakness last time patient was known well was 540 this morning then patient was found on the ground at 05:45 with confusion, right-sided weakness, right facial droop, on EMS arrival patient with right-sided weakness and confusion patient is not coherent or entering question, patient also found by EMS to be hypoxic at 89% on room air which improved with 2 L of oxygen to 98%. Patient was presented on 12/25/2024 with similar presentation and patient was treated for a seizure Patient is taking Keppra 500 mg b.i.d. Patient was found on the floor around 545 patient was transported from the floor to the bed by the staff at the senior care, patient had a C-spine immobilization for transportation on arrival patient is incoherent, appeared disoriented and confused, not speaking. Related Data Home Medications ?Medication ?Instructions ?Recorded ?Confirmed amlodipine 10 mg tablet 10 mg PO DAILY 12/25/2412/14 apixaban 2.5 mg tablet (Eliquis) 2.5 mg PO BID 5 12/25/24 clotrimazole 1 % topical cream 1 appl topical BID 12/1412/25/24 guaifenesin 100 mg/5 mL oral 100 mg PO Q4H PRN Congest ion 12/25/24 12/25/24 liquid (Keli-Tussin) Previous Rx's ?Medication ?Instructions ?Recorded aspirin 81 mg tablet,delayed 81 mg PO DAILY #90 tabs 0 12/27/24 release levetiracetam 500 mg tablet 500 mg PO BID #180 tabs (Keppra) metoprolol tartrate 25 mg tablet 12.5 mg (1/2 x 25 mg) PO BID #7 12/27/24 tabs Allergies Allergy/AdvReac Type Severity Reaction Status Date / Time No Known Allergies Allergy Verified 10/08/25 06:45 Review of Systems 2 Review of Systems: all other systems are reviewed and are negative Constitutional: Reports as per HPI and Reports no additional constitutional complaints Eyes: Reports as per HPI and Reports no additional eye complaints Reports system reviewed and no additional complaints, except as documented Cardiovascular: Reports as per HPI and Reports no additional cardiovascular complaints Respiratory: Reports as per HPI and Reports no additional respiratory complaints Gastrointestinal: Reports as per HPI and Reports no additional gastrointestinal complaints Genitourinary: Reports no additional female genitourinary complaints Musculoskeletal: Reports no additional musculoskeletal complaints Skin/Breast: Reports system reviewed and no additional complaints, except as docu Psychiatric: Reports no additional psychiatric complaints Endocrine: Reports no additional endocrine complaints Hematologic/Lymphatic: Reports no additional hematologic/lymphatic complaints Allergic/Immunologic: Reports no additional allergic/immunologic complaints Reports system reviewed and no additional complaints, except as documented and Reports Abnormal speech present [facility] Past Medical History Medical History Seizure Cerebrovascular accident Social History Social History Household Members: Unknown / Unable to assess Housing: Unknown / Unable to assess Unable to assess alcohol history related to: Unknown Patient Tobacco Use Status: Tobacco use Unknown Use of substances other than those prescribed or required for medical reasons: Unknown Advance Directives: No Advance Directives Information Provided: Yes service: No Physical Exam 2 Vital Signs: Vital Signs: Last Vital Signs Temp 98.9 F 10/08/25 07:02 Pulse 98 10/08/25 07:28 Resp 13 10/08/25 07:28 BP 188/110 H 10/08/25 07:28 Pulse Ox 96 10/08/25 07:28 O2 Del Method Room Air 10/08/25 07:28 O2 Flow Rate 2 10/08/25 07:02 BMI result Body Mass Index 39.6 Vital signs have been reviewed and appear to be correct. Blood pressure elevated. Heart rate normal. Respiratory rate normal. Temperature normal. Oxygen saturation normal. Appearance: Alert. disoriented No acute distress. Head: Normal external exam. Normocephalic. Atraumatic. No Puentes signs noted. No raccoon eyes noted Eyes: PERRLA. EOMI. Conjunctiva and sclera normal. Eyelids normal. ENT: TM's Normal. Pharynx normal. Uvula midline. Moist mucous membranes. No trismus noted. No drooling noted. No muffled voice noted. Neck: Normal inspection. Neck supple. FROM. No adenopathy. Thyroid Normal. No meningeal signs. No neck mass noted. CVS: Normal heart rate and rhythm. Heart sound normal. No murmurs noted. Pulses normal throughout. Respiratory: No respiratory distress. Painless inspiration. Breath sounds normal. No wheezes/rales/rhonchi noted. Chest nontender. No accessory muscle usage noted or decreased air movement noted. Abdomen: Soft and nontender. Bowel sounds normal in all 4 quadrants. No distention noted. No organomegaly noted. No visible injury noted. Back: No CVA tenderness. Full range of motion noted. Skin: Skin warm and dry. Normal skin color. Normal skin turgor. No rashes/lesions/lacerations noted. Extremities: No lower extremity edema. Extremities exhibit normal range of motion. Extremities nontender. Neuro: mild right hemiparesis and right lower extremity weakness, mild right facial droop. Course Reevaluation(s) Reevaluation #1: patient started to improve while waiting for the CT result, patient is not a candidate for thrombolysis because patient and anticoagulation therapy. 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 Maharaj. Time: 09:57 Medications Administered Discontinued Medications Generic Name Dose Route Start Last Admin Trade Name Freq PRN Reason Stop Dose Admin Iohexol 70 ml 10/08/25 06:57 10/08/25 07:04 Iohexol 350 Mg/Ml 100 Ml Infus..Btl IV 10/08/25 06:58 70 ml ONCE ONE Administration Medical Decision Making Differential Diagnosis Differential Diagnoses: The differential diagnosis associated with the presentation includes ( TIA, stroke, seizure with postictal period, hemorrhagic stroke, ischemic stroke, electrolyte derangement, severe anemia, cerebral aneurysm.) Admission/Observation Consideration of admission/observation: Escalation of care including admission/observation considered Lab Data MDM Lab Attestation statement: I reviewed the patient's lab results. 10/08/25 08:35 10/08/25 08:10 Labs: Lab Results 10/08/25 10/08/25 10/08/25 Range/Units 06:41 06:44 08:10 WBC (4.8-10.8) X10*3/uL RBC (4.20-5.50) X10*6/uL Hgb (12.0-16.0) g/dl Hct (37.0-47.0) % MCV (80.0-98.0) fL MCH (27.0-33.0) pg MCHC (31.0-35.0) g/dl RDW (11.0-16.0) % Plt Count (160-400) X10*3/uL MPV (9.4-12.3) fL Immature Gran % (Auto) (0.0-0.4) % Neut % (Auto) (45-73) % Lymph % (Auto) (20-40) % Knox % (Auto) (2-11) % Eos % (Auto) (0-4) % Baso % (Auto) (0-2) % Lymph # (Auto) (1.2-4.9) X10*3/uL Knox # (Auto) (0.1-1.2) X10*3/uL Eos # (Auto) (0.0-0.4) X10*3/uL Baso # (Auto) (0.0-0.2) X10*3/uL Abs Immat Gran (auto) (0.00-0.03) X10*3/uL Absolute Neuts (auto) (2.0-8.3) x10*3/uL Absolute Nucleated RBC (0.0-0.012) X10*3/uL Nucleated RBC % (auto) (0.0-0.2) /100WBC Smear Tech's Comments PT (11.2-13.5) SEC Whole Blood PT 17.8 H (11.1-13.5) sec INR (0.9-1.1) Whole Blood INR 1.5 H (0.9-1.1) APTT (26.7-34.1) SEC Sodium 139 (135-145) mmol/L Potassium 4.5 (3.3-5.1) mmol/L Chloride 105 (96-108) mmol/L Carbon Dioxide 21 L (22-29) mmol/L Anion Gap 18 (12-20) BUN 19 H (9-16) mg/dL Creatinine 1.25 (0.5-1.4) mg/dL Estim Creat Clear Calc 32.6 Estimated GFR 41 POC Glucose 191 H (60-115) mg/dL Random Glucose 192 H (60-115) mg/dL Calcium 9.9 (8.4-10.2) mg/dL Troponin I High Sens 18.6 H D (<3.5-17.0) ng/L Triglycerides 59 (<150) mg/dL Cholesterol 194 (<200) mg/dL LDL Cholesterol, Calc 113 H (<100) mg/dL HDL Cholesterol 70 (>40) mg/dL 10/08/25 Range/Units 08:35 WBC 11.8 H (4.8-10.8) X10*3/uL RBC 4.84 (4.20-5.50) X10*6/uL Hgb 14.5 (12.0-16.0) g/dl Hct 45.4 (37.0-47.0) % MCV 93.8 (80.0-98.0) fL MCH 30.0 (27.0-33.0) pg MCHC 31.9 (31.0-35.0) g/dl RDW 12.5 (11.0-16.0) % Plt Count 190 (160-400) X10*3/uL MPV 10.2 (9.4-12.3) fL Immature Gran % (Auto) 0.7 H (0.0-0.4) % Neut % (Auto) 90.3 H (45-73) % Lymph % (Auto) 5.2 L (20-40) % Knox % (Auto) 3.6 (2-11) % Eos % (Auto) 0.0 (0-4) % Baso % (Auto) 0.2 (0-2) % Lymph # (Auto) 0.6 L (1.2-4.9) X10*3/uL Knox # (Auto) 0.4 (0.1-1.2) X10*3/uL Eos # (Auto) 0.0 (0.0-0.4) X10*3/uL Baso # (Auto) 0.0 (0.0-0.2) X10*3/uL Abs Immat Gran (auto) 0.08 H (0.00-0.03) X10*3/uL Absolute Neuts (auto) 10.7 H (2.0-8.3) x10*3/uL Absolute Nucleated RBC 0.000 (0.0-0.012) X10*3/uL Nucleated RBC % (auto) 0.0 (0.0-0.2) /100WBC Smear Tech's Comments VERIFIED PT 13.8 H (11.2-13.5) SEC Whole Blood PT (11.1-13.5) sec INR 1.1 (0.9-1.1) Whole Blood INR (0.9-1.1) APTT 29.7 (26.7-34.1) SEC Sodium (135-145) mmol/L Potassium (3.3-5.1) mmol/L Chloride (96-108) mmol/L Carbon Dioxide (22-29) mmol/L Anion Gap (12-20) BUN (9-16) mg/dL Creatinine (0.5-1.4) mg/dL Estim Creat Clear Calc Estimated GFR POC Glucose (60-115) mg/dL Random Glucose (60-115) mg/dL Calcium (8.4-10.2) mg/dL Troponin I High Sens (<3.5-17.0) ng/L Triglycerides (<150) mg/dL Cholesterol (<200) mg/dL LDL Cholesterol, Calc (<100) mg/dL HDL Cholesterol (>40) mg/dL Independent Interpretation I performed an independent interpretation of an: CT Scan ( Head/ neck CTA:1. Patent major arteries in the head and neck, no dissection or flow-limiting stenosis. No acute fracture or traumatic malalignment of the cervical spine. 2. 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 3) Radiology Impression Discussion of test interpretation with radiology: I have reviewed the radiologist's reading. NIH Stroke Scale Internal: Initial- Upon Arrival Level of Consciousness: Alert Level of Consciousness Questions: Answers neither question correctly Level of Consciousness Commands: Performs neither task correctly Best Gaze: Normal Visual: No visual loss Facial Palsy: Minor paralyis Motor Arm (Right): Some effort against gravity Motor Arm (Left): No drift Motor Leg (Right): Some effort against gravity Motor Leg (Left): No drift Limb Ataxia: Absent Sensory: Normal Best Language: Mild to moderate aphasia Dysarthia: Normal Extinction and Inattention: No abnormality Score: 10 Discharge Plan Discharge Clinical Impression: Cerebrovascular accident, Aneurysm, cerebral, nonruptured Patient Disposition: [facility] Transfer Details: [facility] emergency department Prescriptions: No Action amlodipine 10 mg tablet 10 mg PO DAILY Eliquis 2.5 mg tablet 2.5 mg PO BID guaifenesin [Keli-Tussin] 100 mg/5 mL Liquid 100 mg PO Q4H PRN (Reason: Congestion) clotrimazole 1 % Cream 1 appl TOPICAL BID aspirin 81 mg Tablet,Delayed Release (Dr/Ec) 81 mg PO DAILY Qty: 90 0RF levetiracetam [Keppra] 500 mg tablet 500 mg PO BID Qty: 180 0RF metoprolol tartrate 25 mg tablet 12.5 mg PO BID Qty: 7 0RF Rx Instructions: HOLD FOR SBP<100 AND/OR PULSE <60 Print Language: Bulgarian
[2025-10-08 06:50] LABS: Glucose, Whole Blood 191 mg/dL (60-115)
[2025-10-08] MEDS: iohexoL 350 MG/ML 100 ML INFUS..BTL 70 ML IV (07:04)
--- NOTE | 2025-10-08 07:45 | PC.NURSE ---
Care of Pt assumed at change of shift (0700.) Pt arrives to ED via EMS as a Stroke Alert from [facility] after being found down, [facility] [id number]. Unknown head strike, unknown LOC. R facial droop and weakness. (+) Eliquis. Pt arrives with C collar placed by EMS. On arrival, Pt is evaluated by MD and sent to CT for imaging. Unable to assess Pts orientation. She is alert but does not respond to questions. Her speech is clear and is able to make her needs know; Pt states she needs to use the bathroom with clear speech. Pt unable to hold urine until brief is removed and bed mosquera place and therefore soils herself. She is able to follow verbal commands when staff changes the bed linens and assists when prompted to. Pt is noted to be hypertensive at this time, MD aware and no orders given at this time. Lab work and EKG pending.
[2025-10-08 08:33] LABS: Anion Gap 18 (12-20); Blood Urea Nitrogen 19 mg/dL (9-16); Calcium 9.9 mg/dL (8.4-10.2); Carbon Dioxide 21 mmol/L (22-29); Chloride 105 mmol/L (96-108); Cholesterol 194 mg/dL (<200); Creatinine Clr Calc Pharmacy 32.6; Estimated Glomerular Filt Rate 41; HDL Cholesterol 70 mg/dL (>40); Potassium 4.5 mmol/L (3.3-5.1); Sodium 139 mmol/L (135-145); Triglycerides 59 mg/dL (<150)
[2025-10-08 08:39] LABS: Troponin-I High Sensitivity 18.6 ng/L (<3.5-17.0)
[2025-10-08 08:45] LABS: INTERNATIONAL NORM RATIO 1.1 (0.9-1.1); Prothrombin Time 13.8 SEC (11.2-13.5)
[2025-10-08 08:46] LABS: Hematocrit 45.4 % (37.0-47.0); Hemoglobin 14.5 g/dl (12.0-16.0); Imm Gran Abs Auto 0.08 X10*3/uL (0.00-0.03); Imm Gran Pct Auto 0.7 % (0.0-0.4); Lymphocytes Absolute Auto 0.6 X10*3/uL (1.2-4.9); MANUAL DIFF FLAG SCAN; Mean Corpuscular HGB Conc 31.9 g/dl (31.0-35.0); Mean Corpuscular Hemoglobin 30.0 pg (27.0-33.0); Mean Corpuscular Volume 93.8 fL (80.0-98.0); NRBC Abs Auto 0.000 X10*3/uL (0.0-0.012); NRBC Pct Auto 0.0 /100WBC (0.0-0.2); Platelet Count 190 X10*3/uL (160-400); Red Blood Count 4.84 X10*6/uL (4.20-5.50); SCAN SMEAR FLAG 1; White Blood Count 11.8 X10*3/uL (4.8-10.8)
[2025-10-08 08:48] LABS: Partial Thromboplastin Time 29.7 SEC (26.7-34.1)
[2025-10-08 09:09] LABS: Stroke Lab Use COMPLETE
--- NOTE | 2025-10-08 09:19 | PC.NURSE ---
Per Dr. Pepper, C-collar may be removed at this time. Collar removed from Pt. Pt is alert at this time. EKG being performed. Pt continues to be minimally interactive to questions. She states she feels fine but when asked about pain she does not respond. Will continue to monitor.
--- NOTE | 2025-10-08 09:37 | MHC.EDTECH ---
PTINR was done by another tech nurse is aware
--- NOTE | 2025-10-08 10:15 | PC.NURSE ---
Pt to be transported to [facility] ED for Neurosurgery consult. Call placed to [facility] for RN to RN report. Spoke with home therapy clinician Rhonda. RN to RN report completed. Stacey offers no questions at this time. Pt awaiting EMS transport.
--- NOTE | 2025-10-08 10:27 | MHC.EDTECH ---
EKG is done nurse aware. there is a double order on the EKG.
--- NOTE | 2025-10-08 10:29 | HO.NURTONUR ---
Pt informed she will be transported to [facility]. This RN offers to notify family x2 however Pt states both times that she wishes for family not be notified at this time. Called placed to Cheri Watts @ [phone] to notify of Pts transportation to [facility]. Spoken with BERNY Wallis to given RN report and inform that Pt did not want family notified at this time. Per Kadi, Pt is typically A&Ox3 and able to follow commands well. When found this AM, Pt was noted to be disoriented and unable to follow any commands, therefore was sent to ED.
--- NOTE | 2025-10-08 10:50 | PC.NURSE ---
Stroke protocol worksheet completed and submitted. Worksheet placed in file shelf on CC door.
[2025-10-12 02:08] LABS: Levetiracetam Keppra 21.5 mcg/mL (10.0-40.0)
== END 2025-10-08 11:26 | disposition short-term general hospital (02) ==
PROVIDERS: Emergency Provider Emergency Medicine
DX: I67.1 Cerebral aneurysm, nonruptured (principal); R29.810 Facial weakness; R29.710 NIHSS score 10; Z91.81 History of falling; F01.50 Vascular dementia, unspecified severity, without behavioral disturbance, psychotic disturbance, mood disturbance, and anxiety; Z86.73 Personal history of transient ischemic attack (TIA), and cerebral infarction without residual deficits; Z79.01 Long term (current) use of anticoagulants; Z79.899 Other long term (current) drug therapy; Z79.82 Long term (current) use of aspirin
CPT/HCPCS: 36415; 70450; 70496; 70498; 71045; 80048; 80061; 80177; 82947; 84484; 85025; 85610; 85730; 93005; 99285; Q9967

== ENCOUNTER → 2025-10-08 06:46 | Outpatient (BNV) | payer MEDICARE, MEDICAID, SELFPAY | PROVIDERS: Emergency Provider Emergency Medicine; Visit Provider Radiology Diagnostic Radiology | DX: R09.02 Hypoxemia (principal) | CPT/HCPCS: 71045 ==

== ENCOUNTER → 2025-10-08 06:46 | Outpatient (BNV) | payer MEDICARE, MEDICAID, SELFPAY | PROVIDERS: Emergency Provider Emergency Medicine; Visit Provider Internal Medicine Cardiovascular Disease | DX: I48.91 Unspecified atrial fibrillation (principal) | CPT/HCPCS: 93010 ==